=== PATIENT | male | born 1930 | race Caucasian/White ===

== ENCOUNTER 2017-01-25 08:38 | Emergency (ER) | payer BC ==
[~2017-01-25] VITALS: Ht 167.6 cm; Wt 102.8 kg
[~2017-01-25 08:38] MED LIST: AMLO-110 PO; BRVIN PO; BUDE0.5S INH; CLOP1TAB15 PO; DUTACAP PO; LEVO75TA5 PO; LOSA1TAB38 PO; METO-478 PO; PRIM250T9 PO; SIMV80TA2 PO; TRAV0.00 OPB; VNTHFA/IN
[2017-01-25 08:43] VITALS: TEMP 36.5; Ht 167.6 cm; Wt 102.8 kg
[2017-01-25] MEDS ORDERED: SPRIN/30 INH (09:12)
[2017-01-25] MEDS ORDERED: CYCLOBENZAPRINE HCL 10 MG TAB PO STA (09:12)
[2017-01-25] MEDS ORDERED: ARFO15NE NEB (09:12)
[2017-01-25] MEDS ORDERED: BUDE0.5S NEB (09:12)
[2017-01-25] MEDS ORDERED: PRVC/20 PO (09:12)
--- NOTE | 2017-01-25 09:18 | EMERGENCY ROOM VISIT NOTE ---
History Report prepared by Rudy: Dawna Pugh Under the Supervision of: Dr. Nedra Moore M.D. First contact with patient: 08:47 Chief Complaint: LEG PAIN,LEG INJURY Stated Complaint: LEFT LEG PAIN History of Present Illness The patient is a 86 year old male who presents to the Emergency Room with complaints of constant left leg pain that started 8.5 hours ago, around 0030. He describes the pain as sharp and states that the pain is from his knee distally. The pain is worse with standing. The patient states that he went to bed last night around 2230 and he felt well. He states that the pain in his leg woke him up from sleep around 0030. The patient denies doing anything strenuous yesterday. The patient's sister states that the patient has been walking more than usual recently. The patient adds that he has a history of COPD and is on a nebulizer at home. The patient denies any personal history of blood clots, but his sister states that there is a history of blood clots in their family. The patient denies any history of diabetes. The patient has a history of a stroke that affects the right side of his body. Source of History: patient Onset: 8.5 hours ago, around 0030 Position: leg (left, from knee distally) Quality: sharp Timing: constant Modifying Factors (Worsening): other (standing) Note: increased walking Review of Systems See HPI for pertinent positives & negatives. A total of 10 systems reviewed and were otherwise negative. 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 (6) PURE HYPERCHOLESTEROLEM (7) SINOATRIAL NODE DYSFUNCT (8) Stroke Family History Cancer FH: heart disease Hypertension Social History Smoking Status: Never Smoker Alcohol Use: none Drug Use: none Marital Status: Housing Status: lives with family Occupation Status: retired Current/Historical Medications Scheduled Albuterol Hfa (Ventolin Hfa), 2 PUFFS BID Arformoterol Tartrate (Brovana), 1 VIAL NEB BID Azithromycin (Azithromycin), 1 TAB PO HS Budesonide (Inhalation) (Pulmicort), 2 ML NEB BID Clopidogrel (Plavix), 75 MG PO DAILY Cyclobenzaprine Hcl (Flexeril), 5 MG PO TID Levothyroxine Sodium (Levothyroxine Sodium), 75 MCG PO DAILY Losartan Potassium (Cozaar), 100 MG PO DAILY Metoprolol Succinate (Toprol Xl), 25 MG PO HS Pravastatin Sod (Pravastatin Sodium), 20 MG PO HS Prednisone (Prednisone), 10 MG PO DIRECTED Primidone (Mysoline), 375 MG PO BID Tamsulosin HCl (Tamsulosin HCl), 0.4 MG PO HS Tiotropium [place] (Spiriva Handihaler), 1 CAP INH DAILY Travoprost (Travatan Z), 1 DROPS OPB HS Scheduled PRN Tramadol (Ultram), 1 TABS PO Q6 PRN for Pain Allergies Coded Allergies: Doxycycline (Verified Allergy, Intermediate, RASH, 01/25/17) Propranolol (Verified Allergy, Mild, BRADYCARDIA, 01/25/17) Cephalexin (Verified Allergy, Unknown, RASH, 01/25/17) Uncoded Allergies: MONOHYDRATE (Allergy, Unknown, UNKNOWN, 10/09/15) Physical Exam Vital Signs Date Time Temp Pulse Resp B/P (MAP) Pulse Ox O2 Delivery O2 Flow Rate FiO2 01/25/17 11:13 62 16 182/81 95 Room Air 01/25/17 08:43 36.5 79 17 177/88 95 Room Air Physical Exam Vital signs reviewed. General: Chronically ill-appearing elderly male, in no significant distress. HEENT: No scleral icterus, PERRLA, neck supple. Atraumatic. Cardiovascular: Regular rate and rhythm, no extra sounds. Pulmonary: Clear to auscultation bilaterally, normal work of breathing. Abdomen: Soft, nontender, nondistended, positive bowel sounds. Musculoskeletal: Atraumatic, equal strength in bilateral lower extremities, no pain with straight leg raise, equal dorsiflexion and plantarflexion, no peripheral edema. Neurologic: Patient awake alert and oriented x 3, full strength in all 4 extremities. Cranial nerves 2 through 12 grossly intact. Skin: Warm, dry, no rash Medical Decision & Procedures ER Provider Diagnostic Interpretation: Radiology results as stated below per my review and radiologist interpretation: LUMBAR SPINE 5 VIEWS COMPARISON: None. FINDINGS: There is no fracture. No subluxation. Mild facet degenerative changes at L4-L5 and L5-S1. Disc spaces are relatively preserved for age. Tiny endplate osteophytes within the lumbar spine. IMPRESSION: No fracture or subluxation within the lumbar spine. Electronically signed by: Juanpablo Rincon M.D. 01/25/2017 10:42 AM Dictated Date/Time: 01/25/2017 10:41 AM LEFT HIP UNILATERAL 2 VIEWS FINDINGS: No fracture or dislocation. Mild left hip osteoarthritis. The bones are slightly osteopenic. Soft tissues are unremarkable. IMPRESSION: No fracture or dislocation within the left hip. Electronically signed by: Juanpablo Rincon M.D. 01/25/2017 10:40 AM Dictated Date/Time: 01/25/2017 10:39 AM LEFT LOWER EXTREMITY VENOUS DOPPLER FINDINGS: There is normal compressibility, flow, and augmentation within the left lower extremity deep venous system. IMPRESSION: No DVT within the left lower extremity. Electronically signed by: Juanpablo Rincon M.D. 01/25/2017 10:30 AM Dictated Date/Time: 01/25/2017 10:30 AM Medications Administered Medications (Trade) Dose Ordered Sig/Zafar Route Start Time Stop Time Status Last Admin Dose Admin Prednisone (PredniSONE TAB) 40 mg NOW STAT PO 01/25/17 09:12 01/25/17 09:15 DC 01/25/17 09:21 40 MG Cyclobenzaprine HCl (Flexeril Tab) 5 mg NOW STAT PO 01/25/17 09:12 01/25/17 09:15 DC 01/25/17 09:21 5 MG Tramadol HCl (Ultram Tab) 50 mg NOW STAT PO 01/25/17 11:35 01/25/17 11:36 DC 01/25/17 11:42 50 MG ED Course 0901: Past medical records reviewed. The patient was evaluated in room A3. A complete history and physical examination was performed. 0912: Ordered Flexeril Tab 5 mg PO, Prednisone 40 mg PO 1130: The patient's nurse called to inform me that the patient would like something for pain. 1135: Ordered Ultram Tab 1153: Upon reevaluation, the patient appeared to have improvement of his symptoms. I discussed findings with him. He verbalized agreement of the treatment plan. He was discharged home. Medical Decision Differentials include DVT, lumbar radiculopathy, cellulitis, muscular pain, arthritis, fracture. Medication Reconciliation: I attest that I have personally reviewed the patient' s current medication list. Blood Pressure Screening: Patient was found to have an elevated blood pressure and was referred to their primary doctor for recheck and further treatment. This patient was evaluated and appeared to be in no significant distress. After physical exam was performed, patient was given 40 mg of prednisone, 5 mg of Flexeril and 50 mg of Ultram. Lumbar spine films and hip x-ray were obtained and results are as above. There is no significant fracture or malalignment. Venous Doppler was performed and is negative. Patient had some improvement of his symptoms with the above medication regimen. He was given a prescription for both Flexeril and Ultram to be used as needed. He was given a prednisone taper. The patient was advised of the findings. He was discharged to the care of her sister. He will follow-up with his physician this week for reevaluation return to the ER for worsening of symptoms or any medical concerns. Impression Primary Impression: Lumbar radicular pain Scribe Attestation The scribe's documentation has been prepared under my direction and personally reviewed by me in its entirety. I confirm that the note above accurately reflects all work, treatment, procedures, and medical decision making performed by me. Departure Information Dispostion Home / Self-Care Prescriptions Tramadol (Ultram) 50 Mg Tab 1 TABS PO Q6 Y for Pain, #20 TAB Prov: Nedra Moore M.D. 01/25/17 Cyclobenzaprine Hcl (FLEXERIL) 5 Mg Tab 5 MG PO TID for 7 Days, #21 TAB PRN Prov: Nedra Moore M.D. 01/25/17 Prednisone (Prednisone) 10 Mg Tab 10 MG PO DIRECTED, #31 TAB Prednisone 40 mg for 4 days, 30 mg for 3 days, 20 mg for 2 days, 10 mg for 2 days. Prov: Nedra Moore M.D. 01/25/17 Referrals David Dial D.O. (PCP) Forms HOME CARE DOCUMENTATION FORM, IMPORTANT VISIT INFORMATION Patient Instructions My [facility] Additional Instructions Diagnosis: Lumbar radiculopathy Prednisone 40 mg for 4 days, 30 mg for 3 days, 20 g for 2 days, 10 mg for 2 days. Flexeril 5 mg 3 times daily as needed for muscular spasm. Ultram 50 mg every 6 hours as needed for pain. Tylenol 650 mg every 6 hours as needed for pain. Follow-up with your physician this week for reevaluation. Return to the ER for worsening of symptoms or any medical concerns.
[2017-01-25] MEDS ORDERED: ZPAK PO (09:22)
[2017-01-25] MEDS ORDERED: FLM4 PO (09:22)
--- NOTE | 2017-01-25 10:31 | DIAGNOSTIC IMAGING REPORT ---
LEFT LOWER EXTREMITY VENOUS DOPPLER HISTORY: Left leg pain. COMPARISON STUDY: None. FINDINGS: There is normal compressibility, flow, and augmentation within the left lower extremity deep venous system. IMPRESSION: No DVT within the left lower extremity. Electronically signed by: Juanpablo Rincon M.D. 01/25/2017 10:30 AM Dictated Date/Time: 01/25/2017 10:30 AM
--- NOTE | 2017-01-25 10:41 | DIAGNOSTIC IMAGING REPORT ---
LEFT HIP UNILATERAL 2 VIEWS CLINICAL HISTORY: Left hip pain. COMPARISON STUDY: None. FINDINGS: No fracture or dislocation. Mild left hip osteoarthritis. The bones are slightly osteopenic. Soft tissues are unremarkable. IMPRESSION: No fracture or dislocation within the left hip. Electronically signed by: Juanpablo Rincon M.D. 01/25/2017 10:40 AM Dictated Date/Time: 01/25/2017 10:39 AM
--- NOTE | 2017-01-25 10:43 | DIAGNOSTIC IMAGING REPORT ---
LUMBAR SPINE 5 VIEWS HISTORY: Lower back pain. COMPARISON: None. FINDINGS: There is no fracture. No subluxation. Mild facet degenerative changes at L4-L5 and L5-S1. Disc spaces are relatively preserved for age. Tiny endplate osteophytes within the lumbar spine. IMPRESSION: No fracture or subluxation within the lumbar spine. Electronically signed by: Juanpablo Rincon M.D. 01/25/2017 10:42 AM Dictated Date/Time: 01/25/2017 10:41 AM
[2017-01-25 11:13] VITALS: BP 182/81; PULSE 62; O2SAT 95
[2017-01-25] MEDS ORDERED: TRAMADOL HCL 50 MG TAB PO STA (11:35)
[2017-01-25] MEDS ORDERED: PRED10TA PO (11:42)
[2017-01-25] MEDS ORDERED: CYCL5TAB PO (11:43)
[2017-01-25] MEDS ORDERED: TRAM-10 PO (11:43)
[2017-05-04] MEDS ORDERED: AMLO-110 PO (12:03)
== END 2017-01-25 11:35 | disposition home or self-care (01) ==
LOC: C.EDB 08:41 → C.EDA 11:35
DX: M54.16 Radiculopathy, lumbar region (principal); J44.9 Chronic obstructive pulmonary disease, unspecified; I69.351 Hemiplegia and hemiparesis following cerebral infarction affecting right dominant side; I10 Essential (primary) hypertension; N40.0 Benign prostatic hyperplasia without lower urinary tract symptoms; E78.00 Pure hypercholesterolemia, unspecified; Z80.9 Family history of malignant neoplasm, unspecified; Z82.49 Family history of ischemic heart disease and other diseases of the circulatory system; Z79.01 Long term (current) use of anticoagulants; Z79.899 Other long term (current) drug therapy

== ENCOUNTER 2017-03-21 01:18 | Emergency (ER) | payer BC ==
[~2017-03-21] VITALS: Ht 167.6 cm; Wt 104.8 kg
[~2017-03-21 01:18] MED LIST changes: -AMLO-110 PO; +ARFO15NE NEB; -BRVIN PO; -BUDE0.5S INH; +BUDE0.5S NEB; -DUTACAP PO; +FLM4 PO; -METO-478 PO; +METO1TAB31 PO; +PRED10TA PO; +PRIM250T30 PO; -PRIM250T9 PO; +PRVC/20 PO; -SIMV80TA2 PO; +SPRIN/30 INH; +TRAM-10 PO; +ZPAK PO
[2017-03-21 01:24] VITALS: TEMP 36.5; Ht 167.6 cm; Wt 104.8 kg
[2017-03-21] MEDS ORDERED: DEXAMETHASONE SOD INJ 10 MG/ML VIAL IM STA (01:33)
[2017-03-21] MEDS ORDERED: OXYCODONE HCL IR 5 MG TAB (IMMEDIATE RELEASE) PO STA (01:33)
[2017-03-21] MEDS ORDERED: GABAPENTIN 250 MG/5 ML 470 ML BTL PO STA ×2 (01:37→01:52)
--- NOTE | 2017-03-21 01:40 | EMERGENCY ROOM VISIT NOTE ---
History Report prepared by Rudy: Anthony Eng Under the Supervision of: Dr. Brian Rowland M.D. First contact with patient: 01:28 Chief Complaint: LEG PAIN,LEG INJURY Stated Complaint: PAIN IN LEFT LEG History of Present Illness The patient is a 86 year old male who presents to the Emergency Room with complaints of worsening sharp left leg mack starting a few months ago. The patient states that the pain is mostly from the knee down on the anterior side. The pain is not exacerbated with palpation. Source of History: patient Onset: a few months ago Position: leg (left) Quality: sharp Timing: worsening Review of Systems See HPI for pertinent positives & negatives. A total of 10 systems reviewed and were otherwise negative. 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 (6) PURE HYPERCHOLESTEROLEM (7) SINOATRIAL NODE DYSFUNCT (8) Stroke Family History Cancer FH: heart disease Hypertension Social History Smoking Status: Never Smoker Alcohol Use: none Drug Use: none Marital Status: Housing Status: lives with family Occupation Status: retired Current/Historical Medications Scheduled Albuterol Hfa (Ventolin Hfa), 2 PUFFS BID Arformoterol Tartrate (Brovana), 1 VIAL NEB BID Budesonide (Inhalation) (Pulmicort), 2 ML NEB BID Clopidogrel (Plavix), 75 MG PO DAILY Docusate Sodium (Colace), 1 CAP PO BID Gabapentin (Neurontin), 1 CAP PO TID Levothyroxine Sodium (Levothyroxine Sodium), 75 MCG PO DAILY Losartan Potassium (Cozaar), 100 MG PO DAILY Metoprolol Succinate (Toprol Xl), 25 MG PO HS Pravastatin Sod (Pravastatin Sodium), 20 MG PO HS Primidone (Mysoline), 375 MG PO BID Sennosides (Senokot), 8.6 MG PO HS Tamsulosin HCl (Tamsulosin HCl), 0.4 MG PO HS Tiotropium [place] (Spiriva Handihaler), 1 CAP INH DAILY Travoprost (Travatan Z), 1 DROPS OPB HS Scheduled PRN Oxycodone Immediate Rel Tab (Roxicodone Ir), 1-2 TAB PO Q4H PRN for Severe Pain Allergies Coded Allergies: Doxycycline (Verified Allergy, Intermediate, RASH, 03/21/17) Propranolol (Verified Allergy, Mild, BRADYCARDIA, 03/21/17) Cephalexin (Verified Allergy, Unknown, RASH, 03/21/17) Uncoded Allergies: MONOHYDRATE (Allergy, Unknown, UNKNOWN, 10/09/15) Physical Exam Vital Signs Date Time Temp Pulse Resp B/P (MAP) Pulse Ox O2 Delivery O2 Flow Rate FiO2 03/21/17 03:50 59 18 159/99 95 03/21/17 02:54 61 18 173/116 Room Air 03/21/17 01:24 36.5 67 20 198/94 94 Room Air Physical Exam GENERAL: Patient is a healthy-appearing well-nourished male HEAD: Normocephalic atraumatic EYES: Ocular movements intact pupils equal and react to light OROPHARYNX mucous membranes are moist no exudates present no erythema or edema present NECK: Supple no nuchal rigidity CHEST: Good equal expansion LUNGS: Clear and equal to auscultation CARDIAC: Normal S1 and S2 ABDOMEN: Soft nontender no guarding BACK: No CVA tenderness EXTREMITIES: Able to walk on the left leg. Slight abrasions. No left leg tenderness to palpation of the tibia. Good range of motion in the knee, ankle, and hip. No pain upon palpation normal muscle strength in all groups no clubbing cyanosis or edema NEURO: Patient is following commands and answering questions appropriately. Alert and oriented x3 Cranial Nerves 2-12 grossly intact Medical Decision & Procedures ER Provider Diagnostic Interpretation: X-ray results as stated below per interpretation by me: Two view of the left tibia: No evidence of fracture, dislocation, or subluxation. CT results as stated below per my review and radiologist interpretation: US VENOUS LEFT LOWER EXTREMITY: No deep venous thrombosis identified in the left lower extremity. Medications Administered Medications (Trade) Dose Ordered Sig/Zafar Route Start Time Stop Time Status Last Admin Dose Admin Dexamethasone Sodium Phosphate (Decadron Inj) 10 mg NOW STAT IM 03/21/17 01:33 03/21/17 01:36 DC 03/21/17 01:48 10 MG Oxycodone HCl (Roxicodone Immediate Rel Tab) 5 mg NOW STAT PO 03/21/17 01:33 03/21/17 01:36 DC 03/21/17 01:47 5 MG Gabapentin (Neurontin) 300 mg NOW STAT PO 03/21/17 01:52 03/21/17 01:53 DC 03/21/17 02:08 300 MG ED Course 0130: Past medical records reviewed. The patient was evaluated in room A2. A complete history and physical examination was performed. 0133: Oxycodone HCl 5mg PO, Decadron Inj 10mg IM 0152: Neurontin 300mg PO 0310: I spoke with the patient's daughter, and she states that the patient was recommended physical therapy in January, but he has not followed up with it since. 0320: Upon reexamination the patient is feeling well. I discussed results and treatment plan with the patient. He verbalizes agreement and understanding. The patient is ready for discharge. 0345: Roxicodone Immediate Rel 5mg 1 Home pack PO Medical Decision Differential diagnosis: Etiologies such as fracture, dislocation, neurovascular compromise, compartment syndrome, soft tissue injury, as well as others were entertained. This is an 86-year-old male who presents emergency department complaining of left leg pain. The leg pain has been ongoing since at least January. The patient has no weakness in the leg. He did not follow-up with physical therapy back in October. I lengthy discussion about the patient with his daughter. She asked for referral to an orthopedic surgeon which was done. In the meanwhile the patient was started on Neurontin as well as Doxy in the emergency department. Repeat examination revealed improvement patient's symptoms. I do feel that the patient is well enough to be discharged home for follow-up with orthopedics. Both patient and daughter were in agreement with the treatment plan. Medication Reconcilliation Current Medication List: was personally reviewed by me Blood Pressure Screening Patient's blood pressure: Elevated blood pressure Blood pressure disposition: Referred to PCP Impression Primary Impression: Leg pain, left Scribe Attestation The scribe's documentation has been prepared under my direction and personally reviewed by me in its entirety. I confirm that the note above accurately reflects all work, treatment, procedures, and medical decision making performed by me. Departure Information Dispostion Home / Self-Care Prescriptions Docusate Sodium (COLACE) 100 Mg Cap 1 CAP PO BID for 10 Days, #20 CAP Prov: Brian Rowland MD 03/21/17 Sennosides (SENOKOT) 8.6 Mg Tab 8.6 MG PO HS for 10 Days, #10 TAB Prov: Brian Rowland MD 03/21/17 Gabapentin (NEURONTIN) 300 Mg Cap 1 CAP PO TID for 10 Days, #30 CAP Prov: Brian Rowland MD 03/21/17 Oxycodone Immediate Rel Tab (ROXICODONE IR) 5 Mg Tab 1-2 TAB PO Q4H Y for Severe Pain, #24 TAB Prov: Brian Rowland MD 03/21/17 Referrals David Dial D.O. (PCP) Forms HOME CARE DOCUMENTATION FORM, IMPORTANT VISIT INFORMATION Patient Instructions Leg Low Back Pain Poss Causes, My [facility] [place] [employer] Additional Instructions Call your daughter before going home Follow up with DR Bland's office Take 1000 mg TYlenol every 6 hours Take Neurontin as directed Take oxy for breakthrough pain You were found to have an elevated blood pressure today (>120 sytolic or >90 diastolic). Per medicare guidelines, you need to follow up with this blood pressure screening with your Primary Care Physician (PCP). For a new PCP call [phone]. You received narcotic or benzodiazepene medication while in the emergency room today. Do not drive, operate heavy machinery, or drink alcohol under the influence of this medication. You have been examined and treated today on an emergency basis only. This is not a substitute for, or an effort to provide, complete comprehensive medical care. It is impossible to recognize and treat all injuries or illnesses in a single emergency department visit. It is therefore important that you follow up closely with Dr Dial. Call as soon as possible for an appointment. Thank you for your time and consideration. I look forward to speaking with you again soon. Please don't hesitate to call us if you have any questions.
[2017-03-21] MEDS ORDERED: NRN/300 PO (03:31)
[2017-03-21] MEDS ORDERED: OXYC1TAB3 PO (03:31)
[2017-03-21] MEDS ORDERED: SENN1TAB77 PO (03:36)
[2017-03-21] MEDS ORDERED: DOCU-94 PO (03:36)
[2017-03-21] MEDS ORDERED: OXYCODONE IR HOME PACK PO ONE (03:45)
[2017-03-21 03:50] VITALS: BP 159/99; PULSE 59; O2SAT 95
--- NOTE | 2017-03-21 07:04 | DIAGNOSTIC IMAGING REPORT ---
LEFT LOWER EXTREMITY VENOUS DOPPLER HISTORY: Left leg pain. COMPARISON STUDY: None. FINDINGS: There is normal compressibility, flow, and augmentation within the left lower extremity deep venous system. IMPRESSION: No DVT within the left lower extremity. Electronically signed by: Juanpablo Rincon M.D. 03/21/2017 7:03 AM Dictated Date/Time: 03/21/2017 7:03 AM
--- NOTE | 2017-03-21 07:53 | DIAGNOSTIC IMAGING REPORT ---
LEFT TIBIA/FIBULA 2 VIEWS ROUTINE CLINICAL HISTORY: Left lower leg pain. COMPARISON STUDY: None. FINDINGS: No fracture or dislocation. Soft tissues unremarkable. No radiopaque foreign bodies. IMPRESSION: No fractures within the left lower leg. Electronically signed by: Juanpablo Rincon M.D. 03/21/2017 7:52 AM Dictated Date/Time: 03/21/2017 7:50 AM
[2017-05-04] MEDS ORDERED: AMLO-110 PO (12:03)
== END 2017-03-21 03:50 | disposition home or self-care (01) ==
LOC: C.EDB 01:19 → C.EDA 03:50
DX: M79.605 Pain in left leg (principal); J44.9 Chronic obstructive pulmonary disease, unspecified; I11.0 Hypertensive heart disease with heart failure; N40.0 Benign prostatic hyperplasia without lower urinary tract symptoms; E78.00 Pure hypercholesterolemia, unspecified; Z86.73 Personal history of transient ischemic attack (TIA), and cerebral infarction without residual deficits; Z80.9 Family history of malignant neoplasm, unspecified; Z82.49 Family history of ischemic heart disease and other diseases of the circulatory system; Z79.01 Long term (current) use of anticoagulants; Z79.899 Other long term (current) drug therapy

== ENCOUNTER → 2017-04-16 | Outpatient (CLI) | payer BC ==
[~2017-04-16] MED LIST changes: +AMLO-110 PO; +NRN/300 PO; +OXYC1TAB3 PO; -PRED10TA PO; -TRAM-10 PO; -ZPAK PO
--- NOTE | 2017-04-16 10:32 | DIAGNOSTIC IMAGING REPORT ---
LUMBAR SPINE W/O CONTRAST HISTORY: Pain LOW BACK PAIN TECHNIQUE: Multiplanar multisequence MRI of the lumbar spine was performed without the use of contrast. COMPARISON: None. FINDINGS: For the purpose of the report the L5-S1 disc space will be located on axial image 2426. Mild degenerative disc change throughout. Mild disc desiccation. Normal signal characteristics of the vertebral bodies. L1-L2: Minimal broad-based disc bulge. No significant impact upon the thecal sac. L2-L3: Minimal disc bulge. No significant impact upon the neural elements. L3-L4: Mild multifactorial narrowing of the spinal canal. Mild narrowing right neuroforamina. L4-L5: Mild multifactorial narrowing of spinal canal. Moderate narrowing of the neuroforamina bilaterally secondary to hypertrophic changes of posterior facets. Findings accentuated by mild broad-based bulging disc. L5-S1: No significant central canal or neural foraminal narrowing. IMPRESSION: 1. Moderate degenerative disc change throughout. 2. Mild multifactorial narrowing of spinal canal at L4-L5 and L3-L4 3. Moderate narrowing of the neuroforamina bilaterally at L4-L5 and on the right at L3-L4. The above report was generated using voice recognition software. It may contain grammatical, syntax or spelling errors. Electronically signed by: John Santillan M.D. 04/16/2017 10:31 AM Dictated Date/Time: 04/16/2017 10:27 AM
== END | disposition home or self-care (01) ==
LOC: C.MRI 09:37
PROVIDERS: ATTEND Family Medicine Sports Medicine
DX: M54.10 Radiculopathy, site unspecified (principal); M54.5 Low back pain

== ENCOUNTER → 2017-05-21 | Outpatient (CLI) | payer BC ==
[~2017-05-21] MED LIST changes: -NRN/300 PO; -OXYC1TAB3 PO; -SPRIN/30 INH
--- NOTE | 2017-05-21 17:20 | DIAGNOSTIC IMAGING REPORT ---
L FOOT MIN 3 VIEWS ROUTINE CLINICAL HISTORY: 86 years-old Male presenting with L ANKLE PAIN. TECHNIQUE: Frontal, oblique, and lateral views of the left foot were obtained. COMPARISON: None. FINDINGS: No acute fracture or malalignment. Ossific fragment at the inferior pole of the medial malleolus suggest prior avulsion injury. Degenerative change noted at the first metatarsophalangeal articulation and more milder degenerative change at the interphalangeal joint of the first toe. Prominent enthesophyte at the origin of the plantar fascia. Atherosclerosis. No radiographic soft tissue abnormality. IMPRESSION: 1. 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 No acute osseous injury. 2. Prominent enthesophyte at the origin of the plantar fascia. Correlate clinically for plantar fasciitis. 3. Degenerative changes most significantly at the first MTP joint. Electronically signed by: Seng Flores M.D. 05/21/2017 5:19 PM Dictated Date/Time: 05/21/2017 5:17 PM
--- NOTE | 2017-05-21 17:29 | DIAGNOSTIC IMAGING REPORT ---
L ANKLE MIN 3 VIEWS ROUTINE CLINICAL HISTORY: 86 years-old Male presenting with L ANKLE PAIN. TECHNIQUE: Frontal, mortise, and lateral views of the left ankle were obtained. COMPARISON: None. FINDINGS: Ankle mortise intact. Ossification at the inferior pole of the medial malleolus suggest prior avulsion injury. Mild soft tissue swelling over both the medial and lateral malleoli. No acute fracture or malalignment. Prominent enthesophyte at the origin of the plantar fascia. Tiny enthesophyte at the insertion of the Achilles tendon. Atherosclerosis. IMPRESSION: 1. No acute osseous injury of the left ankle. 2. 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 Electronically signed by: Seng Flores M.D. 05/21/2017 5:27 PM Dictated Date/Time: 05/21/2017 5:26 PM
== END | disposition home or self-care (01) ==
LOC: C.RAD1850 16:43
PROVIDERS: ATTEND Family Medicine
DX: S82.002A Unspecified fracture of left patella, initial encounter for closed fracture (principal); X58.XXXA Exposure to other specified factors, initial encounter; M72.2 Plantar fascial fibromatosis; M19.072 Primary osteoarthritis, left ankle and foot

== ENCOUNTER → 2017-05-21 | Day surgery (SDC) | payer BC ==
[2017-05-04 12:03] VITALS: Ht 167.6 cm; Wt 102.3 kg
[~2017-05-21] VITALS: Ht 167.6 cm; Wt 102.3 kg
[~2017-05-21] MED LIST changes: +IOPAMIDOL INJ 61% 15 ML VIAL ONE; +LIDOCAINE HCL 1% MPF 5 ML VIAL ONE; +SODIUM CHLORIDE 0.9% INJ 10 ML VIAL ONE
--- NOTE | 2017-05-21 15:13 | History & Physical Bridge - [place] ---
H&P Re-Evaluation Bridge Note: I have examined the patient, reviewed the History & Physical and in the interval since the performance of the History & Physical I have noted the following changes of clinical significance: No changes noted
[2017-05-21 15:32] VITALS: TEMP 36.6
--- NOTE | 2017-05-21 15:37 | Discharge Instructions ---
Discharge Instructions Date of Service May 21, 2017. Visit Reason for Visit: Low Back Pain Discharge Discharge Diagnosis / Problem: left leg pain Discharge Goals Goal(s): Decrease discomfort, Improve function Medications Stopped Medications Name(s): plavix stopped. last dose on thursday05/15/17 Activity Recommendations Activity Limitations: resume your previous activity Anesthesia . Post Anesthesia Instructions: If you have had General Anesthesia or IV Sedation: * Do not drive today. * Resume driving when surgeon permits. * Do not make important decisions or sign legal documents today. * Call surgeon for: 1. Temperature elevations greater than 101 degrees F. 2. Uncontrollable pain. 3. Excessive bleeding. 4. Persistent nausea and vomiting. 5. Medication intolerance (nausea, vomiting or rash). * For nausea and vomiting use only clear liquids such as: tea, soda, bouillon until nausea subsides, then gradually increase diet as tolerated. * If you have any concerns or questions, call your surgeon's office. If physician is unavailable and it is an emergency, call 911 or go to the nearest emergency room. . Diet Recommendations Recommended Home Diet: resume previous diet Procedures Procedures Performed: LUMBAR EPIDURAL STEROID INJECTION Pending Studies Studies pending at discharge: no Medical Emergencies . Who to Call and When: Medical Emergencies: If at any time you feel your situation is an emergency, please call 911 immediately. . Non-Emergent Contact Non-Emergency issues call your: Specialist . . "Provider Documentation" section prepared by Toni Morrell. .
[2017-05-21 15:43] VITALS: BP 183/98; PULSE 62; O2SAT 94
--- NOTE | 2017-05-21 18:03 | OPERATIVE REPORT ---
DATE OF OPERATION: 05/21/2017 PREOPERATIVE DIAGNOSIS: Left L4 radiculopathy secondary to foraminal stenosis. POSTOPERATIVE DIAGNOSIS: Same. PROCEDURE: Left paramedian L4-L5 interlaminar epidural steroid injection under fluoroscopic guidance. INDICATIONS: The patient is an 86-year-old white male who presents with radicular symptoms that are not responsive to conservative measures, and has gotten functionally to the point where his leg will give out if he is standing or walking for distances. He presents today for a lumbar epidural steroid injection to improve his L4 radiculopathy. PHYSICAL EXAMINATION: GENERAL: Pleasant male, seated comfortably, in no apparent distress. MUSCULOSKELETAL: Examination of lumbar paraspinal muscles were palpated and noted to be nontender. He had intact sensation distally and had 5-/5 strength with knee extension in the left leg. No sensory loss. CONSENT: Verbal and written consent was obtained from patient. Risks and benefits were reviewed. Risks include but are not limited to epidural abscess, epidural hematoma, allergic reaction, dural puncture. The patient wishes to proceed. PROCEDURE: The patient was taken back to the special procedures room of [facility] where he was maintained in a prone position. Backside was cleansed with Betadine x3 and a dry sterile dressing was applied. Fluoroscope was used to identify the L4-L5 interlaminar space. Overlying skin on the left side was anesthetized with 4 mL of lidocaine 1% with a 25 gauge 1.5-inch needle. A 22 gauge 3.5-inch Tuohy needle was then directed down towards the intralaminar space. It was advanced under lateral fluoroscopic guidance, loss of resistance was noted at a depth of 9 cm with the hub of the needle on the skin. He then underwent injection of 1 mL of Isovue 300 contrast which confirmed epidural spread. He then underwent injection after negative aspiration of 40 mg of Depo-Medrol and 4 mL of preservative free sodium chloride. Injection was well tolerated. DISPOSITION: 1. The patient is taken out into the discharge recovery area where he will be discharged home once discharge criteria have been met. 2. Follow up in the [facility] office in 2-4 weeks. I attest to the content of the Intraoperative Record and any orders documented therein. Any exceptions are noted below. CHERISE
== END | disposition home or self-care (01) ==
LOC: X.SURG 13:58
PROVIDERS: ATTEND Physical Medicine & Rehabilitation
DX: M54.16 Radiculopathy, lumbar region (principal); M48.061 Spinal stenosis, lumbar region without neurogenic claudication

== ENCOUNTER → 2017-07-15 | Outpatient (CLI) | payer BC ==
[~2017-07-15] MED LIST changes: -IOPAMIDOL INJ 61% 15 ML VIAL ONE; -LIDOCAINE HCL 1% MPF 5 ML VIAL ONE; +METO-478 PO; -METO1TAB31 PO; -PRIM250T30 PO; +PRIM250T9 PO; -SODIUM CHLORIDE 0.9% INJ 10 ML VIAL ONE
--- NOTE | 2017-07-15 15:45 | DIAGNOSTIC IMAGING REPORT ---
CHEST 2 VIEWS ROUTINE CLINICAL HISTORY: BILATERAL EDEMA OF LOWER EXTREMITY COMPARISON STUDY: 07/22/2016 FINDINGS: The heart is mildly enlarged. There is no failure. There is no focal pulmonary consolidation. There are no pleural effusions. Soft tissue paralleling the right lateral chest wall, likely is either extraneous to the patient or a secondary to subpleural fat. This remains unchanged from September 2015[. There are stable postinflammatory nodular densities at the left cardiac phrenic angle. IMPRESSION: Mild cardiomegaly. No active disease in the chest. Electronically signed by: Reno Rinaldi M.D. 07/15/2017 3:44 PM Dictated Date/Time: 07/15/2017 3:42 PM
[2017-07-15 16:42] LABS: BASO % 0.3 %; BASO ABS # 0.03 K/uL (0-0.2); COMPLETE YES; EOS % 3.4 %; HEMATOCRIT 38.2 % (42-52); IG% 0.2 %; LYMPH % 23.8 %; LYMPH ABS # 2.04 K/uL (1.2-3.4); MEAN PLATELET VOLUME 10.2 fL (7.4-10.4); MONO % 6.4 %; NEUT % 65.9 %; PLATELET COUNT 314 K/uL (130-400); RED BLOOD COUNT 3.94 M/uL (4.7-6.1); WHITE BLOOD COUNT 8.58 K/uL (4.8-10.8)
[2017-07-15 16:52] LABS: ALT/SGPT 18 U/L (12-78); AST/SGOT 13 U/L (15-37); BLOOD UREA NITROGEN 9 mg/dl (7-18); BUN/CREATININE RATIO 8.9 (10-20); CALCIUM 8.7 mg/dl (8.5-10.1); CARBON DIOXIDE 29 mmol/L (21-32); CHLORIDE 101 mmol/L (98-107); CREATININE 0.99 mg/dl (0.60-1.40); GLUCOSE 106 mg/dl (70-99); POTASSIUM 4.4 mmol/L (3.5-5.1); SODIUM 131 mmol/L (136-145)
[2017-07-15 16:57] LABS: ALB/GLOB RATIO 0.7 (0.9-2); ALKALINE PHOSPHATASE 171 U/L (45-117)
== END | disposition home or self-care (01) ==
LOC: C.RAD1850 14:48
PROVIDERS: ATTEND Family Medicine
DX: R60.0 Localized edema (principal)

== ENCOUNTER → 2017-07-16 | Outpatient (CLI) | payer BC ==
--- NOTE | 2017-07-16 14:05 | DIAGNOSTIC IMAGING REPORT ---
ULTRASOUND ABDOMEN COMPLETE CLINICAL HISTORY: Abdominal distention. Lower extremity edema. COMPARISON STUDY: Abdominal ultrasound dated 02/05/2010. TECHNIQUE: Real-time, grayscale, and color flow sonography of the abdomen was performed. Images are reviewed in the transverse and longitudinal planes. FINDINGS: Liver: The liver is mildly enlarged and demonstrates heterogeneously increased echotexture suggesting mild steatosis. There is no intrahepatic biliary ductal dilatation. The main portal vein is patent. Gallbladder: The gallbladder is normal in appearance. No gallstones are identified. There is no gallbladder wall thickening or pericholecystic fluid. A sonographic Valencia's sign is reportedly absent. The common bile duct measures up to 0.4 cm in diameter. Pancreas: Not well visualized due to overlying bowel gas. Spleen: The spleen is top normal in size and homogeneous in echotexture echotexture, measuring 12.9 cm in length. Kidneys: The kidneys demonstrate cortical atrophy. There is no hydronephrosis. The right kidney measures 10.3 cm in length and the left kidney measures 10.3 cm in length. No shadowing calculi are identified. There are bilateral renal cysts. The largest is on the left and measures 3.4 cm. Abdominal vasculature: Visualized portions of the abdominal aorta are normal in caliber. Ascites: None. IMPRESSION: 1. No acute sonographic abnormality is identified. No gallstones are seen. 2. Hepatomegaly and mild hepatic steatosis. 3. The kidneys demonstrate cortical atrophy and are without hydronephrosis. 4. The pancreas was not well visualized due to overlying bowel gas. Electronically signed by: Seb Pittman M.D. 07/16/2017 2:04 PM Dictated Date/Time: 07/16/2017 2:02 PM
== END | disposition home or self-care (01) ==
LOC: C.ULTR 12:43
PROVIDERS: ATTEND Family Medicine
DX: R14.0 Abdominal distension (gaseous) (principal); R16.0 Hepatomegaly, not elsewhere classified; K76.0 Fatty (change of) liver, not elsewhere classified

== ENCOUNTER 2017-07-17 17:52 | Emergency (ER) | payer BC ==
[~2017-07-17] VITALS: Ht 167.6 cm; Wt 105.5 kg
[2017-07-17 18:13] VITALS: TEMP 36.3; Ht 167.6 cm; Wt 105.5 kg
--- NOTE | 2017-07-17 18:46 | EMERGENCY ROOM VISIT NOTE ---
History Report prepared by Eronibe: Yany Alfonso Under the Supervision of: Dr. Daniel Wagoner D.O. First contact with patient: 18:35 Chief Complaint: REFERRED BY DOCTOR Stated Complaint: D DIMER AND ULTR FOR BLOOD CLOT History of Present Illness The patient is an 87 year old male who presents to the Emergency Room with complaints of persistent pain in his bilateral legs for the past 2 weeks. He states his legs are "swollen and itchy". He has been seeing Dr. Reed at [facility], and this evening saw Dr. Snyder, who referred him here to the ED for a possible DTV's. He states the office was unable to perform an ultrasound after hours and Dr. Snyder "did not feel comfortable waiting until tomorrow". His daughter reports the patient also had an ultrasound on his abdomen, and an EKG recently, which both came back normal. He complains of some increased shortness of breath, but states he has a history of COPD and he is short of breath at his baseline. The patient denies any recent fevers, nausea or vomiting. 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 A total of 10 systems reviewed and were otherwise negative. 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 (6) PURE HYPERCHOLESTEROLEM (7) SINOATRIAL NODE DYSFUNCT (8) Stroke Family History Cancer FH: heart disease Hypertension Social History Smoking Status: Former Smoker Alcohol Use: none Drug Use: none Marital Status: Housing Status: lives with family Occupation Status: retired Current/Historical Medications Scheduled Albuterol Hfa (Ventolin Hfa), 2 PUFFS BID Amlodipine (Norvasc), 5 MG PO QAM Arformoterol Tartrate (Brovana), 1 VIAL NEB BID Budesonide (Inhalation) (Pulmicort), 2 ML NEB BID Clopidogrel (Plavix), 75 MG PO HOLD PRIOR TO Levothyroxine Sodium (Levothyroxine Sodium), 75 MCG PO QAM Losartan Potassium (Cozaar), 100 MG PO QAM Metoprolol Succinate (Toprol Xl), 25 MG PO HS Pravastatin Sod (Pravastatin Sodium), 20 MG PO HS Primidone (Mysoline), 250 MG PO BID Tamsulosin HCl (Tamsulosin HCl), 0.4 MG PO HS Travoprost (Travatan Z), 1 DROPS OPB HS Allergies Coded Allergies: Doxycycline (Verified Allergy, Intermediate, RASH, 05/21/17) Propranolol (Verified Allergy, Mild, BRADYCARDIA, 05/21/17) Cephalexin (Verified Allergy, Unknown, RASH, 05/21/17) Uncoded Allergies: MONOHYDRATE (Allergy, Unknown, UNKNOWN, 10/09/15) Physical Exam Vital Signs Date Time Temp Pulse Resp B/P (MAP) Pulse Ox O2 Delivery O2 Flow Rate FiO2 07/17/17 20:30 66 22 184/93 94 Room Air 07/17/17 19:31 61 07/17/17 19:08 61 20 196/92 93 Room Air 07/17/17 19:07 94 Room Air 07/17/17 18:13 36.3 58 16 185/79 95 Room Air Physical Exam GENERAL: Patient is awake, alert, in no acute distress, patient is resting comfortably and showing no signs of anxiety EYES: The conjunctivae are clear. The pupils are round and reactive. EARS, NOSE, MOUTH AND THROAT: The nose is without any evidence of any deformity. Mucous membranes are moist tongue is midline NECK: The neck is nontender and supple. RESPIRATORY: Lung sounds diminished throughout with faint rails at both bases, no tachypnea or conversational dyspnea appreciated. CARDIOVASCULAR: Regular rate and rhythm noted there no murmurs rubs or gallops normal S1 normal S2 GASTROINTESTINAL: The abdomen is moderately distended but soft. No tenderness, guarding or rigidity appreciated. PELVIS: The Pelvis is stable. No tenderness to palpation is noted. BACK: No midline tenderness or or step-off noted range of motion in flexion extension as well as rotation no signs of muscle spasm noted MUSCULOSKELETAL/EXTREMITIES: There is no evidence of gross deformity full range of motion is noted in the hips and shoulders SKIN: Pedal edema bilaterally. No erythema appreciated. Excoriations noted over both lower extremities. There is no obvious evidence of any rash. There are no petechiae, pallor or cyanosis noted. NEUROLOGIC: Patient is awake alert and oriented x3 strength is symmetric patellar reflexes are 2+ bilaterally Medical Decision & Procedures ER Provider Diagnostic Interpretation: Radiology results as stated below per my review and radiologist interpretation: BILATERAL LOWER EXTREMITY VENOUS DOPPLER HISTORY: Acute bilateral lower extremity swelling sent by PCP for possible DVT COMPARISON STUDY: None. FINDINGS: There is normal compressibility, flow, and augmentation within the bilateral lower extremity deep venous systems. IMPRESSION: No sonographic evidence of deep venous thrombosis within the right or left lower extremity. Electronically signed by: Brant Miller M.D. 07/17/2017 8:31 PM Laboratory Results 07/17/17 19:35 Red Blood Count 4.16, Mean Corpuscular Volume 96.9, Mean Corpuscular Hemoglobin 34.4, Mean Corpuscular Hemoglobin Concent 35.5, Mean Platelet Volume 10.0, Neutrophils (%) (Auto) 59.4, Lymphocytes (%) (Auto) 29.6, Monocytes (%) (Auto) 7.1, Eosinophils (%) (Auto) 3.4, Basophils (%) (Auto) 0.4, Neutrophils # (Auto) 4.49, Lymphocytes # (Auto) 2.24, Monocytes # (Auto) 0.54, Eosinophils # (Auto) 0.26, Basophils # (Auto) 0.03 07/17/17 19:35 Test 07/17/17 19:35 White Blood Count 7.57 K/uL (4.8-10.8) Red Blood Count 4.16 M/uL (4.7-6.1) Hemoglobin 14.3 g/dL (14.0-18.0) Hematocrit 40.3 % (42-52) Mean Corpuscular Volume 96.9 fL (80-100) Mean Corpuscular Hemoglobin 34.4 pg (25-34) Mean Corpuscular Hemoglobin Concent 35.5 g/dl (32-36) Platelet Count 301 K/uL (130-400) Mean Platelet Volume 10.0 fL (7.4-10.4) Neutrophils (%) (Auto) 59.4 % Lymphocytes (%) (Auto) 29.6 % Monocytes (%) (Auto) 7.1 % Eosinophils (%) (Auto) 3.4 % Basophils (%) (Auto) 0.4 % Neutrophils # (Auto) 4.49 K/uL (1.4-6.5) Lymphocytes # (Auto) 2.24 K/uL (1.2-3.4) Monocytes # (Auto) 0.54 K/uL (0.11-0.59) Eosinophils # (Auto) 0.26 K/uL (0-0.5) Basophils # (Auto) 0.03 K/uL (0-0.2) RDW Standard Deviation 47.8 fL (36.4-46.3) RDW Coefficient of Variation 13.5 % (11.5-14.5) Immature Granulocyte % (Auto) 0.1 % Immature Granulocyte # (Auto) 0.01 K/uL (0.00-0.02) Prothrombin Time 10.7 SECONDS (9.0-12.0) Prothromb Time International Ratio 1.0 (0.9-1.1) Activated Partial Thromboplast Time 29.5 SECONDS (21.0-31.0) Partial Thromboplastin Ratio 1.1 Anion Gap 3.0 mmol/L (3-11) Est Creatinine Clear Calc Drug Dose 58.0 ml/min Estimated GFR () 75.0 Estimated GFR (Non- 64.7 BUN/Creatinine Ratio 10.8 (10-20) Calcium Level 8.5 mg/dl (8.5-10.1) Total Bilirubin 0.2 mg/dl (0.2-1) Aspartate Amino Transf (AST/SGOT) 16 U/L (15-37) Alanine Aminotransferase (ALT/SGPT) 18 U/L (12-78) Alkaline Phosphatase 176 U/L (45-117) Troponin I < 0.015 ng/ml (0-0.045) Pro-B-Type Natriuretic Peptide 77 pg/ml (0-1800) Total Protein 8.7 gm/dl (6.4-8.2) Albumin 3.5 gm/dl (3.4-5.0) Globulin 5.2 gm/dl (2.5-4.0) Albumin/Globulin Ratio 0.7 (0.9-2) Laboratory results per my review. ECG Indication: other (LE edema) Rate (beats per minute): 58 Rhythm: sinus bradycardia Findings: no ectopy, other (no acute ST segments) Change: no significant change (No change from 07/22/16) ED Course 183: The patient was evaluated in room C1. A complete history and physical examination were performed. 2044: I reevaluated the patient. He is feeling well and resting comfortably. I discussed his results and discharge instructions and he verbalized complete understanding and agreement. Medical Decision Prior records reviewed and summarized above. Triage Nursing notes reviewed. Additional history obtained from the family. The patient's history was concerning for swelling and pain in the leg. Differential diagnosis: Etiologies such as DVT, musculoskeletal, infection, joint effusion, trauma, lymphedema, idiopathic, CHF, as well as others were entertained. The patient is an 87-year-old male who presented to the emergency department for lower extremity edema at the request of his primary care physician. The patient has had ongoing lower extremity edema but started noticing pain in his legs with the edema. He was seen by his primary care physician and sent to the emergency department for possible DVT. I discussed the patient's laboratory and radiographic studies with him. Ultrasound did not reveal signs of DVT. He was encouraged to continue all medications as prescribed and follow-up with his family doctor for further evaluation and for possible echocardiogram and further testing to determine the cause of the patient's lower extremity edema. He was also encouraged return the emergency Department immediately if symptoms change worsen or the need arises. Medication Reconcilliation Current Medication List: was personally reviewed by me Blood Pressure Screening Patient's blood pressure: Elevated blood pressure Blood pressure disposition: Referred to PCP Impression Primary Impression: Bilateral lower extremity edema Additional Impression: Stasis dermatitis Scribe Attestation The scribe's documentation has been prepared under my direction and personally reviewed by me in its entirety. I confirm that the note above accurately reflects all work, treatment, procedures, and medical decision making performed by me. Departure Information Dispostion Home / Self-Care Referrals David Dial D.O. (PCP) Patient Instructions ED Leg Swelling Bilateral, My [facility] Additional Instructions Call your family to schedule a follow-up appointment. Continue all medications as prescribed. Keep her legs elevated as much as possible. Discussed the possibility with your family doctor that you may require other studies such as an echocardiogram to further evaluate your heart function to determine if this is the cause of the edema. Problem Qualifiers Additional Impression: Stasis dermatitis Laterality: bilateral Qualified Codes: I87.2 - Venous insufficiency (chronic ) (peripheral)
[2017-07-17 19:07] VITALS: O2SAT 94
[2017-07-17 19:58] LABS: BASO % 0.4 %; BASO ABS # 0.03 K/uL (0-0.2); COMPLETE YES; EOS % 3.4 %; HEMATOCRIT 40.3 % (42-52); IG% 0.1 %; LYMPH % 29.6 %; LYMPH ABS # 2.24 K/uL (1.2-3.4); MEAN CELL VOLUME 96.9 fL (80-100); MEAN CORPUSCULAR HEMOGLOBIN 34.4 pg (25-34); MEAN CORPUSCULAR HGB CONC 35.5 g/dl (32-36); MONO % 7.1 %; NEUT % 59.4 %; PLATELET COUNT 301 K/uL (130-400); RED BLOOD COUNT 4.16 M/uL (4.7-6.1); WHITE BLOOD COUNT 7.57 K/uL (4.8-10.8)
[2017-07-17 20:23] LABS: ALT/SGPT 18 U/L (12-78); AST/SGOT 16 U/L (15-37); BLOOD UREA NITROGEN 11 mg/dl (7-18); BUN/CREATININE RATIO 10.8 (10-20); CALCIUM 8.5 mg/dl (8.5-10.1); CARBON DIOXIDE 29 mmol/L (21-32); CHLORIDE 101 mmol/L (98-107); CREATININE 1.04 mg/dl (0.60-1.40); GLUCOSE 111 mg/dl (70-99); POTASSIUM 4.1 mmol/L (3.5-5.1); SODIUM 133 mmol/L (136-145)
[2017-07-17 20:28] LABS: ALB/GLOB RATIO 0.7 (0.9-2); ALKALINE PHOSPHATASE 176 U/L (45-117); PARTIAL THROMBOPLASTIN RATIO 1.1; PROTHROMBIN TIME (PATIENT) 10.7 SECONDS (9.0-12.0)
[2017-07-17 20:30] VITALS: BP 184/93; PULSE 66; O2SAT 94
--- NOTE | 2017-07-17 20:33 | DIAGNOSTIC IMAGING REPORT ---
BILATERAL LOWER EXTREMITY VENOUS DOPPLER HISTORY: Acute bilateral lower extremity swelling sent by PCP for possible DVT COMPARISON STUDY: None. FINDINGS: There is normal compressibility, flow, and augmentation within the bilateral lower extremity deep venous systems. IMPRESSION: No sonographic evidence of deep venous thrombosis within the right or left lower extremity. Electronically signed by: Brant Miller M.D. 07/17/2017 8:31 PM Dictated Date/Time: 07/17/2017 8:31 PM
== END 2017-07-17 21:00 | disposition home or self-care (01) ==
LOC: C.EDB 17:53 → C.EDC 21:00
DX: R60.0 Localized edema (principal); I87.2 Venous insufficiency (chronic) (peripheral); J44.9 Chronic obstructive pulmonary disease, unspecified; N40.0 Benign prostatic hyperplasia without lower urinary tract symptoms; E78.00 Pure hypercholesterolemia, unspecified; I11.0 Hypertensive heart disease with heart failure; I50.9 Heart failure, unspecified; R00.1 Bradycardia, unspecified; I49.5 Sick sinus syndrome; Z85.51 Personal history of malignant neoplasm of bladder; Z86.73 Personal history of transient ischemic attack (TIA), and cerebral infarction without residual deficits; Z87.891 Personal history of nicotine dependence; Z82.49 Family history of ischemic heart disease and other diseases of the circulatory system

== ENCOUNTER → 2017-09-23 | Day surgery (SDC) | payer BC ==
[2017-08-25 08:58] VITALS: BMI 36.0
[2017-09-18 09:38] VITALS: Ht 167.6 cm; Wt 102.3 kg
[~2017-09-23] VITALS: Ht 167.6 cm; Wt 102.3 kg
[~2017-09-23] MED LIST changes: +BRIM0.15 OPB; +IOPAMIDOL INJ 61% 15 ML VIAL ONE; +MISCCAP80 PO; +NRN/600 PO; +SODIUM CHLORIDE 0.9% INJ 10 ML VIAL ONE; +TBRDOPO OPB; -TRAV0.00 OPB; -VNTHFA/IN
[2017-09-23] MEDS: LIDOCAINE HCL 1% MPF 5 ML VIAL ONE (09:52)
--- NOTE | 2017-09-23 09:53 | [facility] Post Operative Brief Note ---
Immediate Operative Summary Operative Date Sep 23, 2017. Pre-Operative Diagnosis Lumbar Radiculopathy Post-Operative Diagnosis Same Procedure(s) Performed Lumbar Epidural Steroid Injection Surgeon Dr. Morrell Furnace Packer Surgeon(s) None Estimated Blood Loss None Findings Consistent with Post-Op Diagnosis Specimens None Drains None Anesthesia Type Local Complication(s) none Disposition Disposition:
--- NOTE | 2017-09-23 09:54 | Discharge Instructions ---
Discharge Instructions Date of Service Sep 23, 2017. Visit Reason for Visit: Lumbar Radiculopathy Discharge Discharge Diagnosis / Problem: right leg pain Discharge Goals Goal(s): Decrease discomfort, Improve function Medications Stopped Medications Name(s): plavix stopped. last dose last thursday09/18/17 Activity Recommendations Activity Limitations: resume your previous activity Anesthesia . Post Anesthesia Instructions: If you have had General Anesthesia or IV Sedation: * Do not drive today. * Resume driving when surgeon permits. * Do not make important decisions or sign legal documents today. * Call surgeon for: 1. Temperature elevations greater than 101 degrees F. 2. Uncontrollable pain. 3. Excessive bleeding. 4. Persistent nausea and vomiting. 5. Medication intolerance (nausea, vomiting or rash). * For nausea and vomiting use only clear liquids such as: tea, soda, bouillon until nausea subsides, then gradually increase diet as tolerated. * If you have any concerns or questions, call your surgeon's office. If physician is unavailable and it is an emergency, call 911 or go to the nearest emergency room. . Diet Recommendations Recommended Home Diet: resume previous diet Procedures Procedures Performed: Lumbar Epidural Steroid Injection Pending Studies Studies pending at discharge: no Medical Emergencies . Who to Call and When: Medical Emergencies: If at any time you feel your situation is an emergency, please call 911 immediately. . Non-Emergent Contact Non-Emergency issues call your: Specialist . . "Provider Documentation" section prepared by Toni Morrell. .
[2017-09-23 09:56] VITALS: TEMP 36.7
--- NOTE | 2017-09-23 10:08 | OPERATIVE REPORT ---
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 POSTOPERATIVE DIAGNOSIS: Same. PROCEDURE: Left paramedian L5-S1 interlaminar epidural steroid injection under fluoroscopic guidance. INDICATIONS: The patient is an 87-year-old white male who has problems of radicular pain down the leg. He presents today for an epidural injection to provide him with relief. PHYSICAL EXAMINATION: Pleasant male, seated comfortably. He is without any focal weakness. He has no sensory deficits. Negative seated straight leg raises. CONSENT: Verbal and written consent was obtained from the patient. Risks and benefits were reviewed. Risks include but are not limited to epidural abscess, epidural hematoma, allergic reaction, dural puncture. The patient wishes to proceed. PROCEDURE IN DETAIL: The patient was taken back to special procedures room of [facility] where he was maintained in a prone position. Backside was cleansed with Betadine x3 and a dry sterile dressing was applied. Fluoroscope was used to identify the L5-S1 interlaminar space. Overlying skin was anesthetized with 4 mL of lidocaine 1% at that site. Then, a Tuohy needle was entered at the L5-S1 interlaminar space. It was advanced under lateral fluoroscopic guidance with a loss of resistance at 7.5 cm. Isovue-300 contrast 1 mL was injected, which showed epidural uptake pattern and spread. He underwent injection after negative aspiration of 40 mg of Depo-Medrol and 4 mL of preservative-free sodium chloride. Injection was well tolerated. DISPOSITION: 1. The patient was taken out into the discharge recovery area where he will be discharged home once discharge criteria have been met. 2. Follow up in the [facility] office in 4 weeks' time. I attest to the content of the Intraoperative Record and any orders documented therein. Any exception s are noted below.
[2017-09-23 10:18] VITALS: BP 168/75; PULSE 54; O2SAT 94
== END | disposition home or self-care (01) ==
LOC: X.SURG 08:34
PROVIDERS: ATTEND Physical Medicine & Rehabilitation
DX: M48.061 Spinal stenosis, lumbar region without neurogenic claudication (principal); M54.16 Radiculopathy, lumbar region

== ENCOUNTER → 2017-11-20 | Outpatient (CLI) | payer BC ==
[~2017-11-20] MED LIST changes: -IOPAMIDOL INJ 61% 15 ML VIAL ONE; -SODIUM CHLORIDE 0.9% INJ 10 ML VIAL ONE
--- NOTE | 2017-11-20 16:54 | DIAGNOSTIC IMAGING REPORT ---
RIGHT HIP 2 VIEWS HISTORY: PAIN IN R HIP COMPARISON: None. FINDINGS: There is no fracture or dislocation. Soft tissues are unremarkable. No radiopaque foreign bodies. Minimal cartilage space narrowing for age. IMPRESSION: No fracture or dislocation within the right hip. Electronically signed by: Juanpablo Rincon M.D. 11/20/2017 4:53 PM Dictated Date/Time: 11/20/2017 4:50 PM
== END | disposition home or self-care (01) ==
LOC: C.RAD1850 16:35
PROVIDERS: ATTEND Family Medicine
DX: M25.551 Pain in right hip (principal); Z91.81 History of falling

== ENCOUNTER 2018-08-13 19:21 | Inpatient (IN) ==
[2018-08-13 20:10] LABS: Appearance Urine Cloudy (Clear); Bacteria Urine Automated Negative (Negative); Color Urine Dark Yellow; Glucose Urine UA Negative (Negative); Ketones Urine Trace (Negative); Leukocyte Esterase Urine Trace (Negative); Nitrite Urine Negative (Negative); Protein Urine Negative (Negative); Specific Gravity Urine 1.031 (1.000-1.030); Urobilinogen Urine Negative (Negative)
[2018-08-13 20:12] LABS: Bilirubin Urine Negative (Negative); Ictotest Urine Negative (Negative)
[2018-08-13 20:23] LABS: Mucus Urine Present (None Prsent)
[2018-08-13 20:24] LABS: Basophils # (auto) 0.03 K/uL (0-0.2); Basophils % (auto) 0.3 %; Eosinophils # (auto) 0.13 K/uL (0-0.5); Eosinophils % (auto) 1.2 %; Hematocrit (blood only) 36.4 % (42-52); Hemoglobin 12.2 g/dL (14.0-18.0); Immature Granulocytes # (auto) 0.03 K/uL (0.00-0.02); Immature Granulocytes % (auto) 0.3 %; Lymphocytes # (auto) 0.97 K/uL (1.2-3.4); Lymphocytes % (auto) 9.1 %; Mean Corpuscular Hgb Conc 33.5 g/dL (32-36); Mean Corpuscular Volume 99.5 fL (80-100); Monocytes # (auto) 0.61 K/uL (0.11-0.59); Monocytes % (auto) 5.7 %; Neutrophils # (auto) 8.85 K/uL (1.4-6.5); Neutrophils % (auto) 83.4 %; Platelet Count 321 K/uL (130-400); RDW Coefficient of Variation 13.6 % (11.5-14.5); RDW Standard Deviation 49.5 fL (36.4-46.3); Red Blood Count 3.66 M/uL (4.7-6.1); White Blood Count 10.62 K/uL (4.8-10.8)
[2018-08-13 20:41] LABS: Alanine Aminotransferase 23 U/L (12-78); Albumin Level 3.4 gm/dl (3.4-5.0); Aspartate Aminotransferase 17 U/L (15-37); BUN Creatinine Ratio 21.6 (10-20); Blood Urea Nitrogen 41 mg/dl (7-18); Calcium 9.2 mg/dl (8.5-10.1); Carbon Dioxide 26 mmol/L (21-32); Chloride 96 mmol/L (98-107); Creatinine Clr Calc Pharmacy 31.7 ml/min; Est GFR (African American) 35.5; Est GFR (Non-African American) 30.6; Glucose 149 mg/dl (70-99); Magnesium 2.6 mg/dl (1.8-2.4); Potassium 6.6 mmol/L (3.5-5.1); Sodium 127 mmol/L (136-145)
[2018-08-13 20:52] LABS: Albumin Globulin Ratio 0.7 (0.9-2); Alkaline Phosphatase 146 U/L (45-117); Bilirubin,Total 0.2 mg/dl (0.2-1); Total Protein 8.4 gm/dl (6.4-8.2); Troponin I < 0.015 ng/ml (0-0.045)
[2018-08-13 22:30] LABS: Amphetamines+Metham, Urine Neg (Neg); Barbiturates, Urine Pos (Neg); Benzodiazepine, Urine Neg (Neg); Cocaine, Urine Neg (Neg); MDMA (Ecstacy), Urine Neg (Neg); Methadone, Urine Neg (Neg); Opiate, Urine Neg (Neg); Phencyclidine, Urine Neg (Neg)
[2018-08-13 23:05] LABS: Allen Test Pos (Pos); HCO3 ABG 28 mmol/L (19-24); Oxygen Saturation ABG 96.5 % (90-95); PCO2 ABG 48 mmHg (35-46); PO2 ABG 89 mm/Hg (80-95); pH ABG 7.38 (7.35-7.45)
[2018-08-14] LABS: Influenza A virus by PCR Neg for Influ A (Neg); Influenza B virus by PCR Neg for Influ B (Neg)
[2018-08-14 02:13] LABS: Basophils # (auto) 0.02 K/uL (0-0.2); Basophils % (auto) 0.3 %; Eosinophils # (auto) 0.11 K/uL (0-0.5); Eosinophils % (auto) 1.4 %; Hemoglobin 11.9 g/dL (14.0-18.0); Immature Granulocytes # (auto) 0.02 K/uL (0.00-0.02); Immature Granulocytes % (auto) 0.3 %; Lymphocytes # (auto) 0.98 K/uL (1.2-3.4); Lymphocytes % (auto) 12.4 %; Mean Corpuscular Volume 98.6 fL (80-100); Mean Platelet Volume 9.7 fL (7.4-10.4); Monocytes # (auto) 0.38 K/uL (0.11-0.59); Monocytes % (auto) 4.8 %; Neutrophils % (auto) 80.8 %; Platelet Count 267 K/uL (130-400); RDW Coefficient of Variation 13.7 % (11.5-14.5); RDW Standard Deviation 49.1 fL (36.4-46.3); Red Blood Count 3.55 M/uL (4.7-6.1); Reticulocytes # 0.07 10^6/uL (0.02-0.10); White Blood Count 7.91 K/uL (4.8-10.8)
[2018-08-14 02:39] LABS: BUN Creatinine Ratio 27.9 (10-20); Calcium 8.8 mg/dl (8.5-10.1); Creatinine Clr Calc Pharmacy 43.4 ml/min; Est GFR (African American) 52.9; Est GFR (Non-African American) 45.6; Potassium 5.7 mmol/L (3.5-5.1)
[2018-08-14 02:43] LABS: Ferritin 129.2 ng/ml (8-388)
[2018-08-14 02:57] LABS: Folate (Folic Acid) 5.74 ng/ml (>5.38)
[2018-08-14 07:17] LABS: BUN Creatinine Ratio 27.3 (10-20); Calcium 8.9 mg/dl (8.5-10.1); Creatinine Clr Calc Pharmacy 47.6 ml/min; Est GFR (Non-African American) 50.9; Potassium 5.8 mmol/L (3.5-5.1)
[2018-08-14 07:23] LABS: Estimated Average Glucose 131 mg/dl
[2018-08-14 13:48] LABS: BUN Creatinine Ratio 20.9 (10-20); Calcium 9.5 mg/dl (8.5-10.1); Creatinine Clr Calc Pharmacy 46.1 ml/min; Est GFR (African American) 56.9; Est GFR (Non-African American) 49.1; Potassium 5.1 mmol/L (3.5-5.1)
[2018-08-15 08:55] LABS: Calcium 9.3 mg/dl (8.5-10.1); Creatinine Clr Calc Pharmacy 54.6 ml/min; Est GFR (African American) 69.6; Potassium 4.5 mmol/L (3.5-5.1)
[2018-08-16 06:07] LABS: BUN Creatinine Ratio 16.4 (10-20); Calcium 8.8 mg/dl (8.5-10.1); Creatinine Clr Calc Pharmacy 70.7 ml/min; Est GFR (African American) 90.8; Est GFR (Non-African American) 78.3
[2018-08-17 06:52] LABS: INR 1.2 (0.9-1.1); Prothrombin Time 12.1 Seconds (9.0-12.0)
[2018-08-17 07:19] LABS: Calcium 8.9 mg/dl (8.5-10.1); Creatinine Clr Calc Pharmacy 69.1 ml/min; Est GFR (African American) 90.4; Potassium 3.8 mmol/L (3.5-5.1)
[2018-08-17 15:31] LABS: Amobarbital, Urine Conf NEGATIVE NG/ML (CUTOFF=100); Phenobarbital, Urine >8000 NG/ML (CUTOFF=100); Secobarbital, Urine Conf NEGATIVE NG/ML (CUTOFF=100)
[2018-08-17 15:38] LABS: BUN Creatinine Ratio 22.8 (10-20); Calcium 8.8 mg/dl (8.5-10.1); Creatinine Clr Calc Pharmacy 66.8 ml/min; Est GFR (African American) 89.1; Est GFR (Non-African American) 76.9
[2018-08-18 07:29] LABS: BUN Creatinine Ratio 19.1 (10-20); Calcium 9.2 mg/dl (8.5-10.1); Creatinine Clr Calc Pharmacy 57.2 ml/min; Est GFR (African American) 75.3; Potassium 3.6 mmol/L (3.5-5.1)
[2018-08-19 07:19] LABS: BUN Creatinine Ratio 22.9 (10-20); Calcium 8.9 mg/dl (8.5-10.1); Creatinine Clr Calc Pharmacy 57.1 ml/min; Est GFR (African American) 74.5; Est GFR (Non-African American) 64.3; Potassium 3.7 mmol/L (3.5-5.1)
[2018-08-20 08:12] LABS: Hematocrit (blood only) 35.6 % (42-52); Hemoglobin 12.9 g/dL (14.0-18.0); Mean Corpuscular Hgb Conc 36.2 g/dL (32-36); Mean Corpuscular Volume 94.2 fL (80-100); Mean Platelet Volume 9.5 fL (7.4-10.4); Platelet Count 321 K/uL (130-400); RDW Coefficient of Variation 12.9 % (11.5-14.5); RDW Standard Deviation 44.8 fL (36.4-46.3); Red Blood Count 3.78 M/uL (4.7-6.1)
[2018-08-20 09:37] LABS: BUN Creatinine Ratio 25.4 (10-20); Calcium 8.9 mg/dl (8.5-10.1); Creatinine Clr Calc Pharmacy 74.1 ml/min; Est GFR (African American) 93.1; Est GFR (Non-African American) 80.3; Potassium 3.8 mmol/L (3.5-5.1)
== END 2018-08-20 18:08 | disposition home health service (06) ==
LOC: ED 19:21 → SUATTDRO 22:52 → 2N 22:52

== ENCOUNTER 2019-09-02 11:18 | Observation (INO) ==
[2019-09-02] MEDS ORDERED: SODIUM CHLORIDE 0.9% 500 ML IV SCH (11:45)
[2019-09-02 12:10] LABS: Basophils # (auto) 0.02 K/uL (0-0.2); Basophils % (auto) 0.3 %; Eosinophils % (auto) 1.6 %; Hematocrit (blood only) 37.2 % (42-52); Hemoglobin 13.2 g/dL (14.0-18.0); Immature Granulocytes # (auto) 0.02 K/uL (0.00-0.02); Immature Granulocytes % (auto) 0.3 %; Lymphocytes # (auto) 1.21 K/uL (1.2-3.4); Lymphocytes % (auto) 19.5 %; Mean Corpuscular Hemoglobin 33.3 pg (25-34); Mean Corpuscular Hgb Conc 35.5 g/dL (32-36); Mean Corpuscular Volume 93.9 fL (80-100); Mean Platelet Volume 11.2 fL (7.4-10.4); Monocytes # (auto) 0.52 K/uL (0.11-0.59); Monocytes % (auto) 8.4 %; Neutrophils # (auto) 4.35 K/uL (1.4-6.5); Neutrophils % (auto) 69.9 %; Platelet Count 278 K/uL (130-400); RDW Coefficient of Variation 13.3 % (11.5-14.5); RDW Standard Deviation 45.6 fL (36.4-46.3); Red Blood Count 3.96 M/uL (4.7-6.1); White Blood Count 6.22 K/uL (4.8-10.8)
[2019-09-02 12:11] LABS: Base Excess VBG 3.7 mEq/L; pH VBG 7.43 (7.36-7.41)
--- NOTE | 2019-09-02 12:14 | Emergency Department Note ---
Entered by Anders Roberts acting as a scribe for Daniel Wagoner DO History of Present Illness General Chief complaint: Hyperglycemia Stated complaint: HIGH SUGAR Time Seen by Provider: 09/02/19 11:28 Source: patient Limitations: no limitations History of Present Illness Onset (ago): day(s) 4 Location: head Severity: similar to prior episodes Pain Consistency: + intermittent Exacerbated By: not by other (laying flat) Associated symptoms: + denies other symptoms (abdominal pain, falls, vomiting) and + other (increased thirst); no fever/chills (fevers) and no loss of appetite The patient is a 89 year old male who presents to the Emergency Room with complaints of intermittent confusion starting 4 days ago. The patient states he has been really thirsty recently and states he has been drinking water by the [employer]. He states he drinks 32 ounces of water at a time. He notes he has been urinating more frequently. The patient's daughter states the patient was really confused 4 days ago and states he does not look as confused right now. The daughter states the patient's nurse practitioner noted the patient might have a high sugar. The daughter states the patient had symptoms like this before when his sugar was high because he was taking prednisone. She states the patient does not have diabetes. The patient states he has been eating fine. He states he has COPD. He denies having fevers, abdominal pain, falls, trouble breathing when laying flat, and vomiting. He states he had right eye surgery. He notes he has been using inhalers. Home Medications Home Medications Medication Instructions Recorded Confirmed Type Probiotic 1 tab PO QAM 06/28/18 09/02/19 History clopidogrel 75 mg PO 3XWK 06/28/18 09/02/19 History docusate sodium [Colace] 100 mg PO QAM 06/28/18 09/02/19 History dutasteride [Avodart] 0.5 mg PO QAM 06/28/18 09/02/19 History levothyroxine 75 mcg PO QAM 06/28/18 09/02/19 History pravastatin 20 mg PO HS 06/28/18 09/02/19 History primidone 1.5 tab PO BID 06/28/18 09/02/19 History Brovana 15 mcg INHALATION BID 08/13/18 09/02/19 History PreserVision AREDS-2 1 tab PO BID 08/13/18 09/02/19 History amlodipine [Norvasc] 10 mg PO QAM 08/13/18 09/02/19 History betamethasone dipropionate 1 applic TOPICAL BID 08/13/18 09/02/19 History budesonide 2 ml INHALATION BID 08/13/18 09/02/19 History cholecalciferol (vitamin D3) 5,000 unit PO QAM 08/13/18 09/02/19 History [Vitamin D3] clotrimazole 1 applic TOPICAL BID 08/13/18 09/02/19 History oxycodone-acetaminophen [Percocet] 1 tab PO Q4 PRN 08/13/18 09/02/19 History sennosides [senna] 8.6 mg PO QAM 12/09/18 09/02/19 History torsemide 20 mg PO DIRECTED 12/09/18 09/02/19 History tamsulosin 0.4 mg capsule 0.4 mg PO HS #90 cap 05/13/19 09/02/19 Rx acetaminophen 325 mg PO QID PRN 09/02/19 09/02/19 History erythromycin 1 applic OPR QID 09/02/19 09/02/19 History escitalopram oxalate 5 mg PO QAM 09/02/19 09/02/19 History hydralazine 100 mg PO TID 09/02/19 09/02/19 History psyllium [Reguloid, Sugar Free] 1 tsp PO QAM 09/02/19 09/02/19 History tafluprost (PF) [Zioptan (PF)] 1 drp OPB HS 09/02/19 09/02/19 History white petrolatum-mineral oil 0.25 inch OPHTHALMIC (EYE) PM 09/02/19 09/02/19 History [Soothe Night Time Lubricant] Allergies Allergy/AdvReac Type Severity Reaction Status Date / Time cephalexin Allergy Intermediate RASH Verified 09/02/19 13:28 doxycycline Allergy Intermediate RASH Verified 09/02/19 13:28 propranolol Allergy Mild BRADYCARDIA Verified 09/02/19 13:28 hydrochlorothiazide Allergy Unknown Unknown Verified 09/02/19 13:28 sulfamethoxazole AdvReac Intermediate hyperkalemi Verified 09/02/19 13:28 [From Bactrim] a trimethoprim [From Bactrim] AdvReac Intermediate hyperkalemi Verified 09/02/19 13:28 a Past Med/Surg History Medical History Bilateral lower extremity edema (Acute) Bladder cancer REASON FOR PROCEDURE BPH (benign prostatic hyperplasia) Carbon monoxide exposure (Acute) Chronic obstructive pulmonary disease STABLE COPD exacerbation Dizziness (Acute) History of tremor Hx of deep venous thrombosis PER RECORDS; PATIENT DENIES Hx of spinal stenosis Hyperlipidemia Hypertension Hyponatremia (Acute) Hypothyroidism Infection due to urethral catheter (Inactive) Leg pain, left (Acute) Obesity Seizure PER RECORDS; PATIENT DENIES Sinusitis (Acute) Sleep apnea CPAP Stasis dermatitis (Acute) Stroke 5+ YEARS AGO PER CHART REVIEW; NO RESIDUAL DEFICITS= ON PLAVIX Surgical History History of bladder surgery History of cataract surgery B/L History of prostate surgery History of surgical procedure on eye proper using laser right eye Hx of knee surgery Hx of toe surgery Family History Other Family history non-contributory No family history of adverse response to anesthesia Social History Preferred Language: Telugu Communication Ability: Effective Visual Impairment: No Limitations 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 and A total of 10 systems reviewed and were otherwise negative Physical Exam Vital Signs Vital Signs - 24 hr 09/02/19 11:23 09/02/19 11:40 09/02/19 12:00 Temperature 36.6 C Temperature Source Oral Pulse Rate 85 80 77 Pulse Rate [Apical] Pulse Rate from SpO2 Sensor 80 Pulse Rhythm Regular Pulse Strength Normal Respiratory Rate 18 20 22 Respiratory Effort / Characteristics Non-Labored Respiratory Depth Normal Blood Pressure 167/79 H Blood Pressure [Right Arm] Blood Pressure Mean 108 Blood Pressure Mean [Right Arm] Pulse Oximetry 94 92 Oxygen Delivery Method Room Air Sepsis Recent Fever Within 48 Hours No Sepsis Action Taken by Nursing No Action Required 09/02/19 12:11 09/02/19 12:12 09/02/19 12:30 Temperature Temperature Source Pulse Rate 77 78 75 Pulse Rate [Apical] 77 Pulse Rate from SpO2 Sensor 77 77 75 Pulse Rhythm Pulse Strength Respiratory Rate 19 22 18 Respiratory Effort / Characteristics Respiratory Depth Blood Pressure 173/88 H 178/89 H Blood Pressure [Right Arm] 173/88 H Blood Pressure Mean 125 137 Blood Pressure Mean [Right Arm] 116 Pulse Oximetry 90 90 91 Oxygen Delivery Method Room Air Sepsis Recent Fever Within 48 Hours Sepsis Action Taken by Nursing 09/02/19 12:31 09/02/19 13:00 09/02/19 13:01 Temperature Temperature Source Pulse Rate 74 76 75 Pulse Rate [Apical] Pulse Rate from SpO2 Sensor 74 75 75 Pulse Rhythm Pulse Strength Respiratory Rate 17 18 13 Respiratory Effort / Characteristics Respiratory Depth Blood Pressure 186/84 H Blood Pressure [Right Arm] Blood Pressure Mean 97 Blood Pressure Mean [Right Arm] Pulse Oximetry 91 91 91 Oxygen Delivery Method Sepsis Recent Fever Within 48 Hours Sepsis Action Taken by Nursing 09/02/19 13:30 09/02/19 13:31 09/02/19 13:32 Temperature Temperature Source Pulse Rate 77 76 77 Pulse Rate [Apical] Pulse Rate from SpO2 Sensor 75 78 77 Pulse Rhythm Pulse Strength Respiratory Rate 18 21 15 Respiratory Effort / Characteristics Respiratory Depth Blood Pressure 216/103 H Blood Pressure [Right Arm] Blood Pressure Mean 111 Blood Pressure Mean [Right Arm] Pulse Oximetry 96 96 98 Oxygen Delivery Method Sepsis Recent Fever Within 48 Hours Sepsis Action Taken by Nursing 09/02/19 13:47 09/02/19 14:00 09/02/19 14:01 Temperature Temperature Source Pulse Rate 81 81 81 Pulse Rate [Apical] Pulse Rate from SpO2 Sensor 81 81 63 Pulse Rhythm Pulse Strength Respiratory Rate 18 23 Respiratory Effort / Characteristics Respiratory Depth Blood Pressure 187/86 H 189/93 H Blood Pressure [Right Arm] Blood Pressure Mean 147 115 Blood Pressure Mean [Right Arm] Pulse Oximetry 93 92 Oxygen Delivery Method Sepsis Recent Fever Within 48 Hours Sepsis Action Taken by Nursing 09/02/19 14:30 09/02/19 14:31 Temperature Temperature Source Pulse Rate 79 78 Pulse Rate [Apical] Pulse Rate from SpO2 Sensor 80 79 Pulse Rhythm Pulse Strength Respiratory Rate 17 20 Respiratory Effort / Characteristics Respiratory Depth Blood Pressure 212/107 H Blood Pressure [Right Arm] Blood Pressure Mean 127 Blood Pressure Mean [Right Arm] Pulse Oximetry 93 92 Oxygen Delivery Method Sepsis Recent Fever Within 48 Hours Sepsis Action Taken by Nursing GENERAL: Patient is awake alert in no acute distress patient is resting comfortably and showing no signs of anxiety EYES: The conjunctivae are clear. There is ecchymosis in the infraorbital region of the right eye consistent with patient's recent surgery. EARS, NOSE, MOUTH AND THROAT: The nose is without any evidence of any deformity. Mucous membranes are moist. Tongue is midline. NECK: The neck is nontender and supple. RESPIRATORY: Diminished breath sounds are noted throughout. There is expiratory wheezing in both upper lung plata. There is no tachypnea or conversational dyspnea. CARDIOVASCULAR: Regular rate and rhythm noted there no murmurs rubs or gallops normal S1 normal S2. GASTROINTESTINAL: The abdomen is soft. Abdomen is nontender. MUSCULOSKELETAL/EXTREMITIES: There is no evidence of gross deformity full range of motion is noted in the hips and shoulders. SKIN: Trace pedal edema was noted bilaterally. NEUROLOGIC: Patient is awake alert and oriented x3. Course Course 1136: The patient was evaluated in room C10, and a complete history and physical examination were performed. 1455: [facility] the [facility] the patient for further management. Administered Medications Discontinued Medications Sodium Chloride (Nss) 500 mls @ 999 mls/hr IV .Q31M DEB Stop: 09/02/19 12:15 Last Infusion: 09/02/19 12:45 Dose: 0 mls/hr Documented by: [id number] Admin: 09/02/19 12:13 Dose: 999 mls/hr Documented by: [id number] Sodium Chloride (Nss 1000ml) 500 mls @ 999 mls/hr IV .Q31M ONE Stop: 09/02/19 13:13 Last Infusion: 09/02/19 13:23 Dose: 0 mls/hr Documented by: [id number] Admin: 09/02/19 12:48 Dose: 999 mls/hr Documented by: [id number] Insulin Human Regular (Novolin R U-100 Per Unit) 6 units IV NOW STA Stop: 09/02/19 12:44 Last Admin: 09/02/19 13:23 Dose: 6 units Documented by: [id number] Cosigned by: [id number] Medical Decision Making Differential Diagnosis Differential Diagnosis includes but is not limited to dehydration, stroke, anemia, hypoglycemia, hyponatremia, hypernatremia, urinary tract infection, pneumonia, bronchitis, sepsis, gastroenteritis, additional abdominal pathology, metabolic abnormalities and infections. Medical Records Attestation: I reviewed the patient's medical records. Home Medications Current Medication List: was personally reviewed by me Laboratory Data Attestation: I reviewed the patient's lab results. Result diagrams: 09/02/19 11:56 09/02/19 11:56 Lab Results 09/02/19 09/02/19 09/02/19 Range/Units 11:25 11:56 11:56 WBC 6.22 (4.8-10.8) K/uL RBC 3.96 L (4.7-6.1) M/uL Hgb 13.2 L (14.0-18.0) g/dL Hct 37.2 L (42-52) % MCV 93.9 (80-100) fL MCH 33.3 (25-34) pg MCHC 35.5 (32-36) g/dL RDW Std Deviation 45.6 (36.4-46.3) fL RDW Coeff of Sim 13.3 (11.5-14.5) % Plt Count 278 (130-400) K/uL MPV 11.2 H (7.4-10.4) fL Immature Gran % (Auto) 0.3 % Neut % (Auto) 69.9 % Lymph % (Auto) 19.5 % Craig % (Auto) 8.4 % Eos % (Auto) 1.6 % Baso % (Auto) 0.3 % Immature Gran # (Auto) 0.02 (0.00-0.02) K/uL Neut # (Auto) 4.35 (1.4-6.5) K/uL Lymph # (Auto) 1.21 (1.2-3.4) K/uL Craig # (Auto) 0.52 (0.11-0.59) K/uL Eos # (Auto) 0.10 (0-0.5) K/uL Baso # (Auto) 0.02 (0-0.2) K/uL PT 12.4 H (9.0-12.0) Seconds INR 1.2 H (0.9-1.1) APTT 33.6 H (21.0-31.0) Seconds PTT Ratio 1.2 VBG pH (7.36-7.41) VBG pCO2 (38-50) mmHg VBG pO2 mmHg VBG HCO3 mmol/L VBG O2 Saturation % VBG Base Excess mEq/L Barometric Pressure mm/Hg Sodium (136-145) mmol/L Potassium (3.5-5.1) mmol/L Chloride (98-107) mmol/L Carbon Dioxide (21-32) mmol/L Anion Gap (3-11) BUN (7-18) mg/dl Creatinine (0.6-1.4) mg/dl Est Cr Clr Drug Dosing Est GFR ( Amer) Est GFR (Non-Af Amer) BUN/Creatinine Ratio (10-20) Glucose (70-99) mg/dl POC Glucose 454 H* (70-99) mg/dl Calcium (8.5-10.1) mg/dl Magnesium (1.8-2.4) mg/dl Total Bilirubin (0.2-1) mg/dl AST (15-37) U/L ALT (12-78) U/L Alkaline Phosphatase (45-117) U/L Troponin I (0-0.045) ng/ml Total Protein (6.4-8.2) gm/dl Albumin (3.4-5.0) gm/dl Globulin (2.5-4.0) gm/dl Albumin/Globulin Ratio (0.9-2) Beta-Hydroxybutyric Acd (0.2-2.81) mg/dl TSH (0.300-4.500) uIu/ml Urine Color Urine Appearance (Clear) Urine pH (4.5-7.5) Ur Specific [place] (1.000-1.030) Urine Protein (Negative) Urine Glucose (UA) (Negative) Urine Ketones (Negative) Urine Blood (Negative) Urine Nitrite (Negative) Urine Bilirubin (Negative) Urine Urobilinogen (Negative) Ur Leukocyte Esterase (Negative) Urine WBC (Auto) (0-5) /hpf Urine RBC (Auto) (0-4) /hpf U Hyaline Cast (Auto) U Epithel Cells (Auto) (0-5) /lpf Urine Bacteria (Auto) (Negative) Urine Yeast (None Prsent) 09/02/19 09/02/19 09/02/19 Range/Units 11:56 11:56 12:40 WBC (4.8-10.8) K/uL RBC (4.7-6.1) M/uL Hgb (14.0-18.0) g/dL Hct (42-52) % MCV (80-100) fL MCH (25-34) pg MCHC (32-36) g/dL RDW Std Deviation (36.4-46.3) fL RDW Coeff of Sim (11.5-14.5) % Plt Count (130-400) K/uL MPV (7.4-10.4) fL Immature Gran % (Auto) % Neut % (Auto) % Lymph % (Auto) % Craig % (Auto) % Eos % (Auto) % Baso % (Auto) % Immature Gran # (Auto) (0.00-0.02) K/uL Neut # (Auto) (1.4-6.5) K/uL Lymph # (Auto) (1.2-3.4) K/uL Craig # (Auto) (0.11-0.59) K/uL Eos # (Auto) (0-0.5) K/uL Baso # (Auto) (0-0.2) K/uL PT (9.0-12.0) Seconds INR (0.9-1.1) APTT (21.0-31.0) Seconds PTT Ratio VBG pH 7.43 H (7.36-7.41) VBG pCO2 44 (38-50) mmHg VBG pO2 35 mmHg VBG HCO3 29 mmol/L VBG O2 Saturation 65.0 % VBG Base Excess 3.7 mEq/L Barometric Pressure 737.4 mm/Hg Sodium 132 L (136-145) mmol/L Potassium 3.5 (3.5-5.1) mmol/L Chloride 96 L (98-107) mmol/L Carbon Dioxide 28 (21-32) mmol/L Anion Gap 9.0 (3-11) BUN 13 (7-18) mg/dl Creatinine 1.06 (0.6-1.4) mg/dl Est Cr Clr Drug Dosing Not Reportable Est GFR ( Amer) 72.3 Est GFR (Non-Af Amer) 62.4 BUN/Creatinine Ratio 12.5 (10-20) Glucose 460 H* (70-99) mg/dl POC Glucose (70-99) mg/dl Calcium 9.4 (8.5-10.1) mg/dl Magnesium 2.1 (1.8-2.4) mg/dl Total Bilirubin 0.3 (0.2-1) mg/dl AST 14 L (15-37) U/L ALT 15 (12-78) U/L Alkaline Phosphatase 171 H (45-117) U/L Troponin I < 0.015 (0-0.045) ng/ml Total Protein 7.8 (6.4-8.2) gm/dl Albumin 3.0 L (3.4-5.0) gm/dl Globulin 4.8 H (2.5-4.0) gm/dl Albumin/Globulin Ratio 0.6 L (0.9-2) Beta-Hydroxybutyric Acd 26.13 H (0.2-2.81) mg/dl TSH 1.450 (0.300-4.500) uIu/ml Urine Color Yellow Urine Appearance Cloudy A (Clear) Urine pH 5.5 (4.5-7.5) Ur Specific [place] 1.039 H (1.000-1.030) Urine Protein 1+ H (Negative) Urine Glucose (UA) 3+ H (Negative) Urine Ketones 3+ H (Negative) Urine Blood Negative (Negative) Urine Nitrite Negative (Negative) Urine Bilirubin Negative (Negative) Urine Urobilinogen Negative (Negative) Ur Leukocyte Esterase Negative (Negative) Urine WBC (Auto) 1-5 (0-5) /hpf Urine RBC (Auto) >30 H (0-4) /hpf U Hyaline Cast (Auto) Not Reportable U Epithel Cells (Auto) 5-10 H (0-5) /lpf Urine Bacteria (Auto) 1+ H (Negative) Urine Yeast Budding w/ Hyphae A (None Prsent) 09/02/19 09/02/19 Range/Units 13:20 14:25 WBC (4.8-10.8) K/uL RBC (4.7-6.1) M/uL Hgb (14.0-18.0) g/dL Hct (42-52) % MCV (80-100) fL MCH (25-34) pg MCHC (32-36) g/dL RDW Std Deviation (36.4-46.3) fL RDW Coeff of Sim (11.5-14.5) % Plt Count (130-400) K/uL MPV (7.4-10.4) fL Immature Gran % (Auto) % Neut % (Auto) % Lymph % (Auto) % Craig % (Auto) % Eos % (Auto) % Baso % (Auto) % Immature Gran # (Auto) (0.00-0.02) K/uL Neut # (Auto) (1.4-6.5) K/uL Lymph # (Auto) (1.2-3.4) K/uL Craig # (Auto) (0.11-0.59) K/uL Eos # (Auto) (0-0.5) K/uL Baso # (Auto) (0-0.2) K/uL PT (9.0-12.0) Seconds INR (0.9-1.1) APTT (21.0-31.0) Seconds PTT Ratio VBG pH (7.36-7.41) VBG pCO2 (38-50) mmHg VBG pO2 mmHg VBG HCO3 mmol/L VBG O2 Saturation % VBG Base Excess mEq/L Barometric Pressure mm/Hg Sodium (136-145) mmol/L Potassium (3.5-5.1) mmol/L Chloride (98-107) mmol/L Carbon Dioxide (21-32) mmol/L Anion Gap (3-11) BUN (7-18) mg/dl Creatinine (0.6-1.4) mg/dl Est Cr Clr Drug Dosing Est GFR ( Amer) Est GFR (Non-Af Amer) BUN/Creatinine Ratio (10-20) Glucose (70-99) mg/dl POC Glucose 401 H* 290 H (70-99) mg/dl Calcium (8.5-10.1) mg/dl Magnesium (1.8-2.4) mg/dl Total Bilirubin (0.2-1) mg/dl AST (15-37) U/L ALT (12-78) U/L Alkaline Phosphatase (45-117) U/L Troponin I (0-0.045) ng/ml Total Protein (6.4-8.2) gm/dl Albumin (3.4-5.0) gm/dl Globulin (2.5-4.0) gm/dl Albumin/Globulin Ratio (0.9-2) Beta-Hydroxybutyric Acd (0.2-2.81) mg/dl TSH (0.300-4.500) uIu/ml Urine Color Urine Appearance (Clear) Urine pH (4.5-7.5) Ur Specific [place] (1.000-1.030) Urine Protein (Negative) Urine Glucose (UA) (Negative) Urine Ketones (Negative) Urine Blood (Negative) Urine Nitrite (Negative) Urine Bilirubin (Negative) Urine Urobilinogen (Negative) Ur Leukocyte Esterase (Negative) Urine WBC (Auto) (0-5) /hpf Urine RBC (Auto) (0-4) /hpf U Hyaline Cast (Auto) U Epithel Cells (Auto) (0-5) /lpf Urine Bacteria (Auto) (Negative) Urine Yeast (None Prsent) Imaging Data Radiologist's Impression: Radiology results as stated below per my review and the radiologist's interpretation: XR chest 1V portable CLINICAL HISTORY: weakness dyspnea COMPARISON STUDY: 08/18/2018 FINDINGS: Moderate cardiomegaly. Lungs are clear. Diaphragms are smooth. Minimal platelike atelectasis left base. IMPRESSION: Moderate cardiomegaly. Otherwise negative study. ACT 112: Negative or not required by law. The above report was generated using voice recognition software. It may contain grammatical, syntax or spelling errors. Electronically signed by: John Santillan M.D. 09/02/2019 1:25 PM ECG Data Attestation: I personally reviewed and interpreted this ECG as follows: Indication: + weakness Rate (beats per minute): 77 Rhythm: + normal sinus ECG ST segments: + ST depression (lateral) ECG Findings: + Q waves (inferior); no PACs and no PVCs Comparison ECG Date: from (08/18/18) Change: no significant change Blood Pressure Blood Pressure Findings: Elevated blood pressure Blood Pressure Disposition: further management by hospitalist LIYAH Parker The patient is an 89-year-old male who presented to the emergency department with his daughter for an evaluation of generalized weakness. The patient is also had polyuria and polydipsia. The patient was found to have elevated blood sugar. He does not have a history of diabetes currently but he did have problems with hyperglycemia in the past when he was on steroids. At that time he was on insulin. I discussed the patient's laboratory and radiographic studies with him. No other acute findings were noted. The patient was treated with IV fluids and a small dose of IV insulin. His symptoms were significantly improved. He was not found to be in DKA. He was non-acidotic. I discussed his case with the on-call [facility] hospitalist. They have agreed to evaluate the patient in the emergency department for further management and disposition. Impression & Plan Hyperglycemia, Hypertension, Weakness Discharge Plan Visit Data Chief Complaint: Hyperglycemia Stated Complaint: HIGH SUGAR ED Provider: Daniel Wagoner Discharge Problem: Hyperglycemia, Hypertension, Weakness Patient Disposition: Being Evaluated by Hospitalist Forms Stand Alone Forms: [facility] Prescriptions Prescriptions: No Action tamsulosin 0.4 mg capsule 0.4 mg PO HS Qty: 90 RF: 1 clopidogrel 75 mg Tablet 75 mg PO 3XWK RF: 0 levothyroxine 75 mcg Tablet 75 mcg PO QAM RF: 0 pravastatin 20 mg Tablet 20 mg PO HS RF: 0 primidone 250 mg Tablet 1.5 tab PO BID RF: 0 Probiotic 3 billion cell Capsule 1 tab PO QAM RF: 0 docusate sodium [Colace] 100 mg Capsule 100 mg PO QAM RF: 0 dutasteride [Avodart] 0.5 mg Capsule 0.5 mg PO QAM RF: 0 amlodipine [Norvasc] 5 mg tablet 10 mg PO QAM RF: 0 betamethasone dipropionate 0.05 % Cream 1 applic TOPICAL BID RF: 0 budesonide 0.5 mg/2 mL Suspension For Nebulization 2 ml INHALATION BID RF: 0 oxycodone-acetaminophen [Percocet] 7.5-325 mg Tablet 1 tab PO Q4 PRN (Reason: Pain) RF: 0 clotrimazole 1 % Cream 1 applic TOPICAL BID RF: 0 Brovana 15 mcg/2 mL Solution For Nebulization 15 mcg INHALATION BID RF: 0 cholecalciferol (vitamin D3) [Vitamin D3] 5,000 unit Tablet 5,000 unit PO QAM RF: 0 PreserVision AREDS-2 [id number] [id number] Capsule 1 tab PO BID RF: 0 sennosides [senna] 8.6 mg Tablet 8.6 mg PO QAM RF: 0 torsemide 20 mg tablet 20 mg PO DIRECTED RF: 0 acetaminophen 325 mg Tablet 325 mg PO QID PRN (Reason: Pain) RF: 0 Reguloid, Sugar Free Powder 1 tsp PO QAM RF: 0 hydralazine 100 mg tablet 100 mg PO TID RF: 0 erythromycin 5 mg/gram (0.5 %) ointment 1 applic OPR QID RF: 0 escitalopram oxalate 5 mg tablet 5 mg PO QAM RF: 0 Soothe Night Time Lubricant 80-20 % Ointment 0.25 inch OPHTHALMIC (EYE) PM RF: 0 Zioptan (PF) 0.0015 % dropperette 1 drp OPB HS RF: 0 Referrals Referrals: [facility] [Primary Care Provider] - Discharge Problem: Hypertension Qualifiers: Hypertension type: unspecified Qualified Code(s): I10 - Essential (primary) hypertension The scribe's documentation has been prepared under my direction and personally reviewed by me in its entirety. I confirm that the note above accurately reflects all work, treatment, procedures, and medical decision making performed by me.
[2019-09-02 12:24] LABS: INR 1.2 (0.9-1.1); Partial Thromboplastin Ratio 1.2; Partial Thromboplastin Time 33.6 Seconds (21.0-31.0); Prothrombin Time 12.4 Seconds (9.0-12.0)
[2019-09-02 12:32] LABS: Alanine Aminotransferase 15 U/L (12-78); Albumin Globulin Ratio 0.6 (0.9-2); Alkaline Phosphatase 171 U/L (45-117); Aspartate Aminotransferase 14 U/L (15-37); BUN Creatinine Ratio 12.5 (10-20); Beta-Hydroxybutyrate 26.13 mg/dl (0.2-2.81); Bilirubin,Total 0.3 mg/dl (0.2-1); Blood Urea Nitrogen 13 mg/dl (7-18); Calcium 9.4 mg/dl (8.5-10.1); Carbon Dioxide 28 mmol/L (21-32); Chloride 96 mmol/L (98-107); Est GFR (African American) 72.3; Est GFR (Non-African American) 62.4; Globulin 4.8 gm/dl (2.5-4.0); Glucose 460 mg/dl (70-99); Magnesium 2.1 mg/dl (1.8-2.4); Potassium 3.5 mmol/L (3.5-5.1); Sodium 132 mmol/L (136-145); Total Protein 7.8 gm/dl (6.4-8.2)
[2019-09-02 12:37] LABS: Troponin I < 0.015 ng/ml (0-0.045)
[2019-09-02] MEDS ORDERED: SODIUM CHLORIDE 0.9% 1000ML 500 ML IV ONE (12:43)
[2019-09-02] MEDS ORDERED: NovoLIN-R INSULIN PER UNIT CHARGE IV STA (12:43)
[2019-09-02 12:56] LABS: Appearance Urine Cloudy (Clear); Bilirubin Urine Negative (Negative); Blood Urine Negative (Negative); Color Urine Yellow; Glucose Urine UA 3+ (Negative); Leukocyte Esterase Urine Negative (Negative); Nitrite Urine Negative (Negative); Protein Urine 1+ (Negative); Specific Gravity Urine 1.039 (1.000-1.030); Urobilinogen Urine Negative (Negative); pH Urine 5.5 (4.5-7.5)
[2019-09-02 13:09] LABS: Ketones Urine 3+ (Negative)
[2019-09-02 13:14] LABS: RBC Urine Automated >30 /hpf (0-4)
[2019-09-02 13:16] LABS: Bacteria Urine Automated 1+ (Negative)
--- NOTE | 2019-09-02 13:26 | XRay Report ---
XR chest 1V portable CLINICAL HISTORY: weakness dyspnea COMPARISON STUDY: 08/18/2018 FINDINGS: Moderate cardiomegaly. Lungs are clear. Diaphragms are smooth. Minimal platelike atelectasi s left base. IMPRESSION: Moderate cardiomegaly. Otherwise negative study. ACT 112: Negative or not required by law. The above report was generated using voice recognition software. It may contain grammatical, syntax or spelling errors. Electronically signed by: John Santillan M.D. 09/02/2019 1:25 PM
--- NOTE | 2019-09-02 16:30 | History & Physical Report ---
Date of Service September 02, 2019 Assessment & Plan (1) Hyperglycemia: Admit to PCU on telemetry Continue monitoring blood sugars which are already improving. This is a new onset of diabetes mellitus. Glycemic control per pharmacy. telehealth nurse educator. Start with sliding scale insulin Then transition to p.o. if appropriate depending on patient's A1c. If A1c is higher than 10 would recommend to continue with insulin. Patient may be at risk of complications with glycemic control, because of his age and encephalopathy. He will need close monitoring while in his personal correction. DVT prophylaxis SCDs and teds. Full code Present on Admission?: Yes (2) Hypertension: Blood pressure elevated in the ER because patient did not take his medicine this morning. Continue hydralazine 10 mg 3 times daily. Continue amlodipine 10 mg p.o. every morning Continue torsemide 20 mg p.o. as directed. Present on Admission?: Yes (3) Hyponatremia: Restrict free water intake to 1500 mils. Continue monitoring sodium Present on Admission?: Yes (4) Encephalopathy: Continue monitoring sodium. Restrict free water intake to 1500 mils. Present on Admission?: Yes (5) H/O blepharoplasty: Continue instructions given by the RN and patient's internal audit director office. Use warm compresses to the right eye as needed. Use eye ointment erythromycin or [place] 4 times daily. Present on Admission?: Yes History of Present Illness Chief Complaint: Polydipsia, polyuria polyphagia Primary Care Provider: [facility] The patient is a 89 years old male with past medical history of hypertension, previous stroke, COPD, encephalopathy, who presents to the emergency room with a complaint of intermittent confusion started 4 days ago. The patient states that he has been really thirsty recently and states that he has been drinking water by the [employer]. Patient states that he 3 drinks 32 ounces of water at a time. Patient also reports that he urinates more frequently. Patient daughter states that patient had right eye surgery related to his lower eyelid last week, and that appears to be bloody. Patient states that patient nurse practitioner who sees him once a month at [facility] stated that he has a high sugar. Patient denies fever, chills, chest pain, shortness of breath, abdominal pain, frequency, urgency, nausea or vomiting. EKG is reviewed and shows normal sinus rhythm. There there is a Q wave in inferior leads possibly due to inferior infarction in the past. Labs are reviewed: WBC 6.22, hemoglobin 13.2, hematocrit 37.2, platelets 278, PT 12.4, INR 1.2, APTT 33.6, VBG 7.43, PCO2 44, PO2 35, HCO3 29 O2 saturation 65. Blood glucose on arrival was 500 and then decreased to 401--> 290. Sodium 132, potassium 3.5, chloride 96, carbon dioxide 28, anion gap 9, BUN 13, creatinine 1.06, GFR 62.4, calcium 9.4, magnesium 2.1, bilirubin 0.3, AST 14, ALT 15, alkaline phosphatase 171, troponin 0.015, BNP 114, beta hydroxybutyrate acid is 26.13 TSH 1.45. Urine is cloudy with specific gravity 1.0 39, negative blood negative leukocyte esterase, normal white blood cells, over 30 RBCs, some epithelial cells 5-10 and urine bacteria 1+. Chest x-ray shows moderate cardiomegaly. Otherwise negative study. Decision was made to admit patient for hyperglycemia and further monitoring of it to PCU on telemetry. Allergies Allergy/AdvReac Type Severity Reaction Status Date / Time cephalexin Allergy Intermediate RASH Verified 09/02/19 13:28 doxycycline Allergy Intermediate RASH Verified 09/02/19 13:28 propranolol Allergy Mild BRADYCARDIA Verified 09/02/19 13:28 hydrochlorothiazide Allergy Unknown Unknown Verified 09/02/19 13:28 sulfamethoxazole AdvReac Intermediate hyperkalemi Verified 09/02/19 13:28 [From Bactrim] a trimethoprim [From Bactrim] AdvReac Intermediate hyperkalemi Verified 09/02/19 13:28 a Home Medications Home Medications Medication Instructions Recorded Confirmed Type Probiotic 1 tab PO QAM 06/28/18 09/02/19 History clopidogrel 75 mg PO 3XWK 06/28/18 09/02/19 History docusate sodium [Colace] 100 mg PO QAM 06/28/18 09/02/19 History dutasteride [Avodart] 0.5 mg PO QAM 06/28/18 09/02/19 History levothyroxine 75 mcg PO QAM 06/28/18 09/02/19 History pravastatin 20 mg PO HS 06/28/18 09/02/19 History primidone 1.5 tab PO BID 06/28/18 09/02/19 History Brovana 15 mcg INHALATION BID 08/13/18 09/02/19 History PreserVision AREDS-2 1 tab PO BID 08/13/18 09/02/19 History amlodipine [Norvasc] 10 mg PO QAM 08/13/18 09/02/19 History betamethasone dipropionate 1 applic TOPICAL BID 08/13/18 09/02/19 History budesonide 2 ml INHALATION BID 08/13/18 09/02/19 History cholecalciferol (vitamin D3) 5,000 unit PO QAM 08/13/18 09/02/19 History [Vitamin D3] clotrimazole 1 applic TOPICAL BID 08/13/18 09/02/19 History oxycodone-acetaminophen [Percocet] 1 tab PO Q4 PRN 08/13/18 09/02/19 History sennosides [senna] 8.6 mg PO QAM 12/09/18 09/02/19 History torsemide 20 mg PO DIRECTED 12/09/18 09/02/19 History tamsulosin 0.4 mg capsule 0.4 mg PO HS #90 cap 05/13/19 09/02/19 Rx acetaminophen 325 mg PO QID PRN 09/02/19 09/02/19 History erythromycin 1 applic OPR QID 09/02/19 09/02/19 History escitalopram oxalate 5 mg PO QAM 09/02/19 09/02/19 History hydralazine 100 mg PO TID 09/02/19 09/02/19 History psyllium [Reguloid, Sugar Free] 1 tsp PO QAM 09/02/19 09/02/19 History tafluprost (PF) [Zioptan (PF)] 1 drp OPB HS 09/02/19 09/02/19 History white petrolatum-mineral oil 0.25 inch OPHTHALMIC (EYE) PM 09/02/19 09/02/19 History [Soothe Night Time Lubricant] Past Med/Surg History Medical History Bilateral lower extremity edema (Acute) Bladder cancer REASON FOR PROCEDURE BPH (benign prostatic hyperplasia) Carbon monoxide exposure (Acute) Chronic obstructive pulmonary disease STABLE COPD exacerbation Dizziness (Acute) History of tremor Hx of deep venous thrombosis PER RECORDS; PATIENT DENIES Hx of spinal stenosis Hyperlipidemia Hypertension Hyponatremia (Acute) Hypothyroidism Infection due to urethral catheter (Inactive) Leg pain, left (Acute) Obesity Seizure PER RECORDS; PATIENT DENIES Sinusitis (Acute) Sleep apnea CPAP Stasis dermatitis (Acute) Stroke 5+ YEARS AGO PER CHART REVIEW; NO RESIDUAL DEFICITS= ON PLAVIX Surgical History History of bladder surgery History of cataract surgery B/L History of prostate surgery History of surgical procedure on eye proper using laser right eye Hx of knee surgery Hx of toe surgery Family History Other Family history non-contributory No family history of adverse response to anesthesia Social History Preferred Language: Serbian Communication Ability: Effective Visual Impairment: No Limitations Oil 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 Required: No Beliefs That Will Affect Care: None marital status: Current Living Situation: Personal Care Facility Current Living Situation Comment: [facility] current occupational status: retired Other Information That Helps Us Care for You: No Feels Safe at Home: Yes Safety Concerns: Feels Safe At This Time Smoking Status: Former smoker Tobacco Type: cigarettes ; Cigarettes Per Day: QUIT 50+ YEARS AGO ; Smoking End Date: 40 years ago ; Second Hand Exposure: No ; Tobacco Cessation Education Requested by Patient: No Hx Alcohol Use: No Hx Substance Use: No Review of Systems Review of Systems: All systems reviewed & are unremarkable except as noted in HPI & below Physical Exam Constitutional: WD/WN, vitals as above well developed and + obese Eyes: + eyes dysmorphic (Right eye is mildly swollen and bruised.S/p R/Lower eyelid blepharoplasty.) ENMT: external ear and nose normal, oropharynx normal Neck: trachea midline, no thyromegaly Respiratory: normal respiratory effort, lungs clear to auscultation Cardiovascular: Heart Sounds: normal S1 and normal S2 Palpation: + palpable S3 Vessels: dorsalis pedis pulses present Gastrointestinal (Abdomen): normal bowel sounds, soft, nontender, no hepatosplenomegaly Musculoskeletal: no cyanosis or clubbing, extremities motor strength 5/5 Skin: no rashes, warm and dry Neurologic: patellar DTR's 2+ bilat, sensation intact Psychiatric: Insight: + limited insight Lymphatic: no cervical or axillary lymphadenopathy Results & Data Vital Signs (Past 12 Hours) Vital Signs Temp Pulse Pulse Resp BP BP Pulse Ox 09/02/19 14:31 78 20 92 09/02/19 14:30 79 17 212/107 H 93 09/02/19 14:01 81 23 92 09/02/19 14:00 81 18 189/93 H 93 09/02/19 13:47 81 187/86 H 09/02/19 13:32 77 15 98 09/02/19 13:31 76 21 216/103 H 96 09/02/19 13:30 77 18 96 09/02/19 13:01 75 13 91 09/02/19 13:00 76 18 186/84 H 91 09/02/19 12:31 74 17 91 09/02/19 12:30 75 18 178/89 H 91 09/02/19 12:12 78 77 22 173/88 H 90 09/02/19 12:11 77 19 173/88 H 90 09/02/19 12:00 77 22 09/02/19 11:40 80 20 92 09/02/19 11:23 36.6 C 85 18 167/79 H 94 Code Status & VTE Plan Code Status Full code VTE Prophylaxis Plan VTE Prophylaxis will be ordered: Yes PG Care Time/CCT Total # of Minutes Spent Total Time Spent with Patient: Total time spent is greater than 50% in coordination of care (as documented) at patient's floor/unit and/or counseling patient: Coding Level of Care Code 81950 Initial Inpt Care Lvl 3 Diagnoses Hyperglycemia R73.9 Hypertension I10 Hypertension type: unspecified Hyponatremia E87.1 Encephalopathy G93.40 H/O blepharoplasty Z98.890 (1) Hypertension Hypertension type: unspecified Qualified Code(s): I10 - Essential (primary) hypertension
[2019-09-02] MEDS ORDERED: GLUCAGON FOR INJ 1 MG VIAL SQ PRN (17:45)
[2019-09-02] MEDS ORDERED: DEXTROSE 50% 50 ML SYRINGE IV PRN (17:45)
[2019-09-02] MEDS ORDERED: ONDANSETRON INJ 2 MG/ML 2 ML VIAL IV PRN (17:45)
[2019-09-02] MEDS ORDERED: CARBOHYDRATES FOR HYPOGLYCEMIA PO PRN (17:45)
[2019-09-02] MEDS ORDERED: ACETAMINOPHEN 325 MG TAB PO PRN (17:45)
[2019-09-02] MEDS ORDERED: POLYETHYLENE (MIRALAX) 17 GM PACK PO PRN (17:45)
[2019-09-02] MEDS ORDERED: ALUMINUM/MAGNESIUM SUSP 30 ML UDC PO PRN (17:45)
[2019-09-02] MEDS ORDERED: MAGNESIUM HYDROXIDE SUSP 30 ML UDC PO PRN (17:45)
[2019-09-02] MEDS ORDERED: GLUCOSE 10 TABS/TUBE PO PRN (17:45)
[2019-09-02] MEDS ORDERED: OXYCODONE/APAP 7.5/325MG TAB PO PRN (17:45)
[2019-09-02] MEDS ORDERED: GLUCOSE 40% GEL 15 GM TUBE PO PRN (17:45)
[2019-09-02] MEDS ORDERED: PHARMACY GLYCEMIC MGMT CONSULT PRN (18:03)
[2019-09-02] MEDS ORDERED: INSULIN GLARGINE SOLOSTAR 100 UNITS/ML 3 ML PEN SC ONE (18:15)
[2019-09-02] MEDS: SODIUM CHLORIDE 0.9% 1000ML 1,000 ML IV SCH (18:36)
[2019-09-02] MEDS: ESCITALOPRAM OXALATE 10 MG TAB PO SCH (18:36)
[2019-09-02] MEDS: DOCUSATE SODIUM 100 MG CAP PO SCH (18:39)
[2019-09-02] MEDS: ERYTHROMYCIN OP OINT 5 MG/GM 3.5 GM TUBE OPR SCH ×2 (18:39→20:30)
[2019-09-02] MEDS: AMLODIPINE BESYLATE 5 MG TAB PO SCH (18:40)
[2019-09-02] MEDS: LEVOTHYROXINE SODIUM 75 MCG TABLET PO SCH (18:41)
[2019-09-02] MEDS: INSULIN ASPART 100 UNITS/ML 3 ML PEN SC SCH ×2 (18:42→20:35)
[2019-09-02] MEDS: FORMOTEROL 20 MCG/2 ML VIAL INH SCH (19:56)
[2019-09-02] MEDS: BUDESONIDE 0.5 MG/2 ML VIAL (PULMICORT) INH SCH (20:00)
--- NOTE | 2019-09-02 20:26 | Pharmacy Report ---
Glycemic Control Consultation - Date of Service September 02, 2019 - Scope Scope: Glycemic Pharmacist consulted by Dr Rojas on 09/02/19 for glycemic control and to write orders per [facility] inpatient glycemic control protocol - Objective Weight: 98.883 kg Accuchecks BSG (last 24hrs): 09/02/19 09/02/19 09/02/19 11:25 11:56 13:20 Glucose 460 H* POC Glucose 454 H* 401 H* 09/02/19 09/02/19 14:25 17:37 Glucose POC Glucose 290 H 379 H* Laboratory Data (last 24hrs): 09/02/19 11:56 Potassium 3.5 Carbon Dioxide 28 Anion Gap 9.0 Creatinine 1.06 Est Cr Clr Drug Dosing Not Reportable Beta-Hydroxybutyric Acd 26.13 H - Recent Pertinent Medications Outpatient Anti-diabetic Regimen: * No prior diagnosis of diabetes * A1c = 6.2 % (08/14/18) * A1c ordered for this admission - Assessment & Plan Assessment & Plan: ASSESSMENT: * RM is an 89 year old male who presented to [facility] ED with confusion and increased thirst * Per ED note - patient had hyperglycemia in the past secondary to prednisone use, but patient has no history of diabetes * BSG in ED was 460 mg/dL - given 6 units of IV regular insulin * Patient ate uncovered lunch in ED * Pharmacy consulted at time of admission around dinnertime * Ordered Lantus 32 units (full weight-based stress of 2 dose) at time of consult for BSG of 379 * Per nursing, patient has poor IV access - will attempt to manage with SC basal/bolus for now PLAN FOR INPATIENT GLYCEMIC CONTROL: * Holding outpatient oral diabetes medications * Basal insulin * Lantus 32 units SC x 1 at 1838 * Will reassess basal insulin in the morning * Bolus insulin * NovoLog per scale ACHS or Q6hrs while NPO * Goal Range: Low 110 mg/dL - High 150 mg/dL * Correction Factor: 20 mg/dL/unit * Nutritional / Prandial insulin per carb ratio of 1 unit per 7 grams CHO consumed * ,04 checks with same parameters * Please note that the plan above was derived based on current level of insulin resistance and hospital stress. These recommendations are appropriate for inpatient admission only. Plan of care upon discharge will need to be reassessed to avoid potential outpatient hypo/hyperglycemia. Thank you.
[2019-09-02] MEDS: PRIMIDONE 250 MG TAB PO SCH (20:28)
[2019-09-02] MEDS: PRAVASTATIN SOD 20 MG TAB PO SCH (20:29)
[2019-09-02] MEDS: TAMSULOSIN HCL 0.4 MG CAP PO SCH (20:29)
[2019-09-02] MEDS: HydrALAZINE TAB 50 MG TAB PO SCH (20:29)
[2019-09-02] MEDS: CLOTRIMAZOLE 1% CR 15 GM TUBE TOP SCH (20:29)
[2019-09-02] MEDS: BETAMETHASONE DIP AUG (DIPROLENE) 0.05% CR 15 GM TUBE EXT SCH (20:30)
[2019-09-03] MEDS: INSULIN ASPART 100 UNITS/ML 3 ML PEN SC SCH ×6 (00:06→21:14)
[2019-09-03] MEDS: SODIUM CHLORIDE 0.9% 1000ML 1,000 ML IV SCH (05:54)
[2019-09-03] MEDS: LEVOTHYROXINE SODIUM 75 MCG TABLET PO SCH (05:55)
[2019-09-03 06:01] LABS: Basophils # (auto) 0.03 K/uL (0-0.2); Basophils % (auto) 0.5 %; Eosinophils # (auto) 0.11 K/uL (0-0.5); Eosinophils % (auto) 1.8 %; Hemoglobin 12.7 g/dL (14.0-18.0); Immature Granulocytes # (auto) 0.02 K/uL (0.00-0.02); Immature Granulocytes % (auto) 0.3 %; Lymphocytes % (auto) 23.1 %; Mean Corpuscular Hemoglobin 32.2 pg (25-34); Mean Corpuscular Hgb Conc 34.3 g/dL (32-36); Mean Corpuscular Volume 93.9 fL (80-100); Mean Platelet Volume 10.8 fL (7.4-10.4); Monocytes # (auto) 0.45 K/uL (0.11-0.59); Monocytes % (auto) 7.4 %; Neutrophils # (auto) 4.05 K/uL (1.4-6.5); Neutrophils % (auto) 66.9 %; Platelet Count 276 K/uL (130-400); RDW Coefficient of Variation 13.4 % (11.5-14.5); RDW Standard Deviation 46.2 fL (36.4-46.3); Red Blood Count 3.94 M/uL (4.7-6.1); White Blood Count 6.06 K/uL (4.8-10.8)
[2019-09-03 06:30] LABS: Albumin Level 2.7 gm/dl (3.4-5.0); BUN Creatinine Ratio 15.2 (10-20); Calcium 8.7 mg/dl (8.5-10.1); Creatinine Clr Calc Pharmacy 71.2 ml/min; Est GFR (African American) 92.9; Est GFR (Non-African American) 80.2; Potassium 3.2 mmol/L (3.5-5.1)
--- NOTE | 2019-09-03 06:30 | Electrocardiogram Report ---
Test Reason : Blood Pressure : / mmHG Vent. Rate : 077 BPM Atrial Rate : 077 BPM P-R Int : 192 ms QRS Dur : 090 ms QT Int : 390 ms P-R-T Axes : 052 031 081 degrees QTc Int : 441 ms Normal sinus rhythm Cannot rule out Inferior infarct , age undetermined Nonspecific T wave abnormality Abnormal ECG When compared with ECG of 18-AUG-2018 10:52, Minimal criteria for Inferior infarct are now Present Confirmed by Glenn Wilhelm ([id number]) on 09/03/2019 6:29:39 AM Referred By: [facility] Confirmed By:Glenn Wilhelm
[2019-09-03 06:32] LABS: Albumin Globulin Ratio 0.6 (0.9-2); Bilirubin,Total 0.2 mg/dl (0.2-1); Globulin 4.2 gm/dl (2.5-4.0); Total Protein 6.9 gm/dl (6.4-8.2)
[2019-09-03 06:53] LABS: Estimated Average Glucose 352 mg/dl; Hemoglobin A1C 13.9 % (4.5-5.6)
[2019-09-03] MEDS: FORMOTEROL 20 MCG/2 ML VIAL INH SCH ×2 (07:16→19:41)
[2019-09-03] MEDS: BUDESONIDE 0.5 MG/2 ML VIAL (PULMICORT) INH SCH ×2 (07:16→19:41)
[2019-09-03] MEDS ORDERED: INSULIN GLARGINE SOLOSTAR 100 UNITS/ML 3 ML PEN SC STA (07:48)
[2019-09-03] MEDS: AMLODIPINE BESYLATE 5 MG TAB PO SCH (08:16)
[2019-09-03] MEDS: HydrALAZINE TAB 50 MG TAB PO SCH ×3 (08:16→21:16)
[2019-09-03] MEDS: DOCUSATE SODIUM 100 MG CAP PO SCH (08:16)
[2019-09-03] MEDS: ESCITALOPRAM OXALATE 10 MG TAB PO SCH (08:16)
[2019-09-03] MEDS: SENNA 8.6 MG TAB PO SCH (08:17)
[2019-09-03] MEDS: PRIMIDONE 250 MG TAB PO SCH ×2 (08:17→16:46)
[2019-09-03] MEDS: CHOLECALCIFEROL 1,000 UNITS 25 MCG TAB PO SCH (08:18)
[2019-09-03] MEDS: LACTOBACILLUS ACIDOPHILUS (FLORANEX) TAB PO SCH (08:18)
[2019-09-03] MEDS: ERYTHROMYCIN OP OINT 5 MG/GM 3.5 GM TUBE OPR SCH ×4 (08:19→21:09)
[2019-09-03] MEDS: BETAMETHASONE DIP AUG (DIPROLENE) 0.05% CR 15 GM TUBE EXT SCH ×2 (08:19→21:20)
[2019-09-03] MEDS: PSYLLIUM 58.6% POWDER PACKET PO SCH (08:21)
[2019-09-03] MEDS: CLOTRIMAZOLE 1% CR 15 GM TUBE TOP SCH ×2 (08:21→21:11)
[2019-09-03] MEDS ORDERED: CEROVITE ADV FORMULA TAB PO SCH (09:00)
[2019-09-03] MEDS: POTASSIUM CHLORIDE / WTR 10 MEQ/100 ML PLCT IV SCH ×3 (10:40→13:05)
--- NOTE | 2019-09-03 11:53 | Hospitalist Progress Note ---
Date of Service September 03, 2019 Assessment & Plan (1) Diabetes: New diagnosis of diabetes mellitus. A1c was 13.9%. - Glycemic control per pharmacy - assistant health educator - On 09/03, sugars are improved. As high as 460 yesterday; now in the high 100s. (2) Hyponatremia: Long history of hyponatremia. Unclear cause. Will hold torsemide and IV fluids and monitor. Will then get urine osms tomorrow to help figure out cause. - Restrict free water intake to 1500 mL/day - Continue monitoring sodium (3) Hypertension: BP as high as 185/85 today. - Continue hydralazine, amlodipine - Will add lisinopril given diabetes and HTN as a kidney protector - Hold torsemide given we are given fluids for dehydration and DKA. (4) H/O blepharoplasty: Surgery done on 09/01 per patient. - Continue instructions given by the RN and patient's apprentice lineman third step office. - Use warm compresses to the right eye as needed. - Use eye ointment erythromycin or [place] 4 times daily. (5) Hypothyroidism: TSH was 1.5 this admission. - Continue home levothyroxine 75 mcg (6) DVT prophylaxis: SCDs - Low DVT risk per admission calculator Subjective Doing well today. No focal complaints. No nausea, appetite ok. Right eye is not painful. Reports no fevers/chills, chest pain, shortness of breath, abdominal pain, nausea, or vomiting. Physical Exam Constitutional: WD/WN, vitals as above Eyes: + eyelid abnormality (Right eye swelling.), + conjunctival abnormality (Right eye.) and EOM intact bilaterally ENMT: external ear and nose normal, oropharynx normal Neck: trachea midline, no thyromegaly normal visual inspection Respiratory: normal respiratory effort, lungs clear to auscultation no respiratory distress Cardiovascular: RRR, no murmur, no edema Gastrointestinal (Abdomen): Inspection/Auscultation: abdomen normal to inspection; abdomen not distended Musculoskeletal: no cyanosis or clubbing, extremities motor strength 5/5 Skin: no rashes, warm and dry Neurologic: moves all extremities and awake Psychiatric: Orientation: alert, oriented to person and cooperative Results & Data Vital Signs (Past 12 Hours) Vital Signs Temp Pulse Pulse Resp BP BP Pulse Ox 09/03/19 11:19 36.7 C 73 20 186/83 H 91 09/03/19 07:49 36.8 C 69 20 169/90 H 91 09/03/19 07:16 68 16 94 09/03/19 03:30 64 14 90 09/03/19 03:21 36.7 C 77 18 129/70 90 PG Care Time/CCT Total # of Minutes Spent Total Time Spent with Patient: Total time spent is greater than 50% in coordination of care (as documented) at patient's floor/unit and/or counseling patient: Coding Level of Care Code 86475 Subseq Hosp Care Lvl 3 Diagnoses Diabetes E11.9 Hyponatremia E87.1 Hypertension I10 Hypertension type: unspecified H/O blepharoplasty Z98.890 Hypothyroidism E03.9 DVT prophylaxis Z29.9 (1) Hypertension Hypertension type: unspecified Qualified Code(s): I10 - Essential (primary) hypertension
[2019-09-03] MEDS: lisinopriL 10 MG TAB PO SCH (13:01)
[2019-09-03] MEDS: POTASSIUM CHLORIDE 20 MEQ TABCR PO SCH ×2 (14:00→21:10)
--- NOTE | 2019-09-03 14:18 | Pharmacy Report ---
Pharmacy Glycemic Short Note 2 - Date of Service September 03, 2019 - Glycemic Short BSG Results (Last 24 hours): 09/02/19 09/02/19 09/02/19 14:25 17:37 20:28 Glucose POC Glucose 290 H 379 H* 303 H* 09/03/19 09/03/19 09/03/19 00:02 04:14 05:29 Glucose 187 H POC Glucose 169 H 190 H 09/03/19 09/03/19 07:10 11:12 Glucose POC Glucose 189 H 266 H ASSESSMENT: * Mr. Scales's BSGs have improved today. Lunch time hyperglycemia likely due to carb heavy breakfast and endogenous insulin resistance. His A1C of 13.9%, FBS >/=126 are both indicative of type II diabetes. He did recently have a prednisone taper. The A1C is most affected by the previous 2 weeks. * Given his advanced age, high A1C, and co morbidities, I hesitate to correct his BSGs too quickly. I feel BSGs in the lower 200s are reasonable and he is unlikely to benefit from tight control which may manifest as hypoglycemia. PLAN FOR INPATIENT GLYCEMIC CONTROL: * Basal insulin * Lantus scale SQ BID, please see MAR for further details * Bolus insulin * NovoLog per scale ACHS or Q6hrs while NPO * Goal Range: Low 110 mg/dL - High 150 mg/dL * Correction Factor: 15 mg/dL/unit * Nutritional / Prandial insulin per carb ratio of 1 unit per 6 grams CHO consumed
[2019-09-03] MEDS ORDERED: ALBUT/IPRATROP 3MG/0.5MG NEB 3 ML VIAL NEB PRN (16:29)
[2019-09-03] MEDS ORDERED: FUROSEMIDE 20 MG in SYRINGE 0 ML IV ONE (16:45)
[2019-09-03] MEDS: PRAVASTATIN SOD 20 MG TAB PO SCH (21:09)
[2019-09-03] MEDS: TAMSULOSIN HCL 0.4 MG CAP PO SCH (21:09)
[2019-09-03] MEDS: LATANOPROST 0.005% OP SOLN 2.5 ML BTL OPB SCH (21:11)
[2019-09-03] MEDS: INSULIN GLARGINE SOLOSTAR 100 UNITS/ML 3 ML PEN SC SCH (21:15)
[2019-09-04] MEDS: LEVOTHYROXINE SODIUM 75 MCG TABLET PO SCH (05:44)
[2019-09-04 07:06] LABS: BUN Creatinine Ratio 16.9 (10-20); Calcium 8.9 mg/dl (8.5-10.1); Creatinine Clr Calc Pharmacy 66.9 ml/min; Est GFR (African American) 91.1; Est GFR (Non-African American) 78.6; Potassium 3.7 mmol/L (3.5-5.1)
[2019-09-04] MEDS: FORMOTEROL 20 MCG/2 ML VIAL INH SCH ×2 (07:25→19:18)
[2019-09-04] MEDS: BUDESONIDE 0.5 MG/2 ML VIAL (PULMICORT) INH SCH ×2 (07:25→19:18)
[2019-09-04] MEDS: LACTOBACILLUS ACIDOPHILUS (FLORANEX) TAB PO SCH (08:01)
[2019-09-04] MEDS: INSULIN ASPART 100 UNITS/ML 3 ML PEN SC SCH ×4 (08:01→21:16)
[2019-09-04] MEDS: CEROVITE ADV FORMULA TAB PO SCH (08:01)
[2019-09-04] MEDS: SENNA 8.6 MG TAB PO SCH (08:01)
[2019-09-04] MEDS: CHOLECALCIFEROL 1,000 UNITS 25 MCG TAB PO SCH (08:02)
[2019-09-04] MEDS: PSYLLIUM 58.6% POWDER PACKET PO SCH (08:02)
[2019-09-04] MEDS: lisinopriL 10 MG TAB PO SCH (08:02)
[2019-09-04] MEDS: POTASSIUM CHLORIDE 20 MEQ TABCR PO SCH (08:02)
[2019-09-04] MEDS: AMLODIPINE BESYLATE 5 MG TAB PO SCH (08:02)
[2019-09-04] MEDS: HydrALAZINE TAB 50 MG TAB PO SCH ×3 (08:02→21:12)
[2019-09-04] MEDS: PRIMIDONE 250 MG TAB PO SCH ×2 (08:02→17:03)
[2019-09-04] MEDS: CLOTRIMAZOLE 1% CR 15 GM TUBE TOP SCH ×2 (08:03→21:13)
[2019-09-04] MEDS: BETAMETHASONE DIP AUG (DIPROLENE) 0.05% CR 15 GM TUBE EXT SCH ×2 (08:03→21:14)
[2019-09-04] MEDS: ERYTHROMYCIN OP OINT 5 MG/GM 3.5 GM TUBE OPR SCH ×4 (08:03→21:12)
[2019-09-04] MEDS: ESCITALOPRAM OXALATE 10 MG TAB PO SCH (08:03)
[2019-09-04] MEDS: DOCUSATE SODIUM 100 MG CAP PO SCH (08:03)
[2019-09-04] MEDS: INSULIN GLARGINE SOLOSTAR 100 UNITS/ML 3 ML PEN SC SCH (08:04)
--- NOTE | 2019-09-04 11:37 | Hospitalist Progress Note ---
Date of Service September 04, 2019 Assessment & Plan (1) Diabetes: New diagnosis of diabetes mellitus. A1c was 13.9%. 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 Pharmacy is slowing tightening carb coverage, but going slower to prevent hypoglycemia which is probably a bigger concern given his age. Will work with the mobile home mechanic tomorrow. - Spoke with daughter Alondra on 09/03. He lives at [facility] and therefore would have nursing staff check blood sugars & administer insulin. This is a big relief. Will give pharmacy another day to find good discharge regimen, then likely can discharge tomorrow. Will get PT/OT to ensure he is safe to go home. (2) Hyponatremia: Long history of hyponatremia. On 08/14/2019 & 08/17/2019, he had sodiums of 125-128 with urine osms of 460 & 360. 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 - Restrict free water intake to 1500 mL/day - Will hold torsemide and IV fluids and monitor. - Will then get urine osms tomorrow to help figure out cause. He is running low-normal at present, so will likely be adequate to just use conservative measures. (3) Hypertension: BP is 145/75 today. - Continue hydralazine, amlodipine - Added lisinopril on 09/03 given diabetes and HTN as a kidney protector - Hold home torsemide given hyponatremia. (4) H/O blepharoplasty: Right side. Surgery done on 09/01. - Continue instructions given by the RN and patient's gta office. - Use warm compresses to the right eye as needed. - Use erythromycin ointment in right eye 4 times daily. (5) Hypothyroidism: TSH was 1.5 this admission. - Continue home levothyroxine 75 mcg (6) Chronic obstructive pulmonary disease: Had some wheezing on 09/03, but no increased shortness of breath or sputum production. Feels well on 09/04. No shortness of breath. - Continue home inhalers - DuoNebs PRN (7) Glaucoma: Patient's eye drop is non-formulary, so we switched to a similar formulary medication. - Continue latanoprost in both eyes each evening. (8) Stroke: History of stroke ~5 years ago. Held Plavix 1 week before surgery, but told to restart after. - Continue Plavix 3x/wk per home regimen (9) Tobacco abuse disorder: Per daughter he chews snuff and swallows the juice. Has had nausea with nicotine patch, so will not use that. - Monitor (10) DVT prophylaxis: SCDs - Low DVT risk per admission calculator Subjective Feels quite well today. No major complaints overall. He is feeling much better than when he was admitted. Reports no fevers/chills, chest pain, shortness of breath, abdominal pain, nausea, or vomiting. Physical Exam Constitutional: WD/WN, vitals as above Eyes: + eyelid abnormality (Right eye swelling.), + conjunctival abnormality (Right eye.) and EOM intact bilaterally ENMT: external ear and nose normal, oropharynx normal Neck: trachea midline, no thyromegaly normal visual inspection Respiratory: normal respiratory effort, lungs clear to auscultation no respiratory distress Cardiovascular: RRR, no murmur, no edema Gastrointestinal (Abdomen): Inspection/Auscultation: abdomen normal to inspection; abdomen not distended Musculoskeletal: no cyanosis or clubbing, extremities motor strength 5/5 Skin: no rashes, warm and dry Neurologic: moves all extremities and awake Psychiatric: Orientation: alert, oriented to person and cooperative Results & Data Vital Signs (Past 12 Hours) Vital Signs Temp Pulse Pulse Resp BP Pulse Ox Pulse Ox 09/04/19 09:30 93 09/04/19 07:05 36.8 C 66 16 146/74 H 96 09/04/19 04:01 36.7 C 73 18 150/78 H 94 09/04/19 00:00 67 PG Care Time/CCT Total # of Minutes Spent Total Time Spent with Patient: Total time spent is greater than 50% in coordination of care (as documented) at patient's floor/unit and/or counseling patient: Coding Level of Care Code 50025 Subseq Hosp Care Lvl 3 Diagnoses Diabetes E11.9 Hyponatremia E87.1 Hypertension I10 Hypertension type: unspecified H/O blepharoplasty Z98.890 Hypothyroidism E03.9 Chronic obstructive pulmonary disease J44.9 Glaucoma H40.9 Stroke I63.9 CVA mechanism: unspecified Tobacco abuse disorder Z72.0 DVT prophylaxis Z29.9 (1) Hypertension Hypertension type: unspecified Qualified Code(s): I10 - Essential (primary) hypertension (2) Stroke CVA mechanism: unspecified Qualified Code(s): I63.9 - Cerebral infarction, unspecified
[2019-09-04] MEDS ORDERED: INSULIN GLARGINE SOLOSTAR 100 UNITS/ML 3 ML PEN SC STA (16:57)
[2019-09-04] MEDS: PRAVASTATIN SOD 20 MG TAB PO SCH (21:13)
[2019-09-04] MEDS: TAMSULOSIN HCL 0.4 MG CAP PO SCH (21:14)
[2019-09-04] MEDS: LATANOPROST 0.005% OP SOLN 2.5 ML BTL OPB SCH (21:15)
[2019-09-05] MEDS: INSULIN ASPART 100 UNITS/ML 3 ML PEN SC SCH ×4 (00:42→11:48)
[2019-09-05] MEDS: LEVOTHYROXINE SODIUM 75 MCG TABLET PO SCH (05:49)
[2019-09-05] MEDS: BUDESONIDE 0.5 MG/2 ML VIAL (PULMICORT) INH SCH (07:00)
[2019-09-05] MEDS: FORMOTEROL 20 MCG/2 ML VIAL INH SCH (07:00)
[2019-09-05 07:01] LABS: BUN Creatinine Ratio 14.2 (10-20); Calcium 9.1 mg/dl (8.5-10.1); Creatinine Clr Calc Pharmacy 69.6 ml/min; Est GFR (African American) 92.4; Est GFR (Non-African American) 79.8; Potassium 3.7 mmol/L (3.5-5.1)
[2019-09-05] MEDS: CEROVITE ADV FORMULA TAB PO SCH (07:48)
[2019-09-05] MEDS: LACTOBACILLUS ACIDOPHILUS (FLORANEX) TAB PO SCH (07:48)
[2019-09-05] MEDS: CHOLECALCIFEROL 1,000 UNITS 25 MCG TAB PO SCH (07:48)
[2019-09-05] MEDS: DOCUSATE SODIUM 100 MG CAP PO SCH (07:48)
[2019-09-05] MEDS: AMLODIPINE BESYLATE 5 MG TAB PO SCH (07:49)
[2019-09-05] MEDS: lisinopriL 10 MG TAB PO SCH (07:49)
[2019-09-05] MEDS: HydrALAZINE TAB 50 MG TAB PO SCH ×2 (07:49→13:22)
[2019-09-05] MEDS: PSYLLIUM 58.6% POWDER PACKET PO SCH (07:49)
[2019-09-05] MEDS: SENNA 8.6 MG TAB PO SCH (07:49)
[2019-09-05] MEDS: PRIMIDONE 250 MG TAB PO SCH (07:50)
[2019-09-05] MEDS: ERYTHROMYCIN OP OINT 5 MG/GM 3.5 GM TUBE OPR SCH ×2 (07:50→13:22)
[2019-09-05] MEDS: ESCITALOPRAM OXALATE 10 MG TAB PO SCH (07:51)
[2019-09-05] MEDS: BETAMETHASONE DIP AUG (DIPROLENE) 0.05% CR 15 GM TUBE EXT SCH (07:51)
[2019-09-05] MEDS: CLOTRIMAZOLE 1% CR 15 GM TUBE TOP SCH (07:52)
[2019-09-05] MEDS: INSULIN GLARGINE SOLOSTAR 100 UNITS/ML 3 ML PEN SC SCH (08:00)
[2019-09-05] MEDS ORDERED: TORSEMIDE 10 MG TAB PO SCH (08:00)
[2019-09-05] MEDS ORDERED: INSULIN GLARGINE SOLOSTAR 100 UNITS/ML 3 ML PEN SC STA (08:04)
[2019-09-05] MEDS ORDERED: CLOPIDOGREL BISULFATE 75 MG TAB PO SCH (09:00)
--- NOTE | 2019-09-05 12:28 | Pharmacy Report ---
Pharmacy Glycemic Short Note 2 - Date of Service September 05, 2019 - Glycemic Short BSG Results (Last 24 hours): 09/04/19 09/04/19 09/04/19 16:16 16:17 20:51 Glucose POC Glucose 350 H* 346 H* 206 H 09/05/19 09/05/19 09/05/19 00:28 04:14 05:40 Glucose 123 H POC Glucose 119 H 140 H 09/05/19 09/05/19 07:27 11:30 Glucose POC Glucose 157 H 262 H Discharge Recommendations: Given Mr. Scales's advanced age and co-morbidities he is unlikely to benefit from extremely tight glycemic management. BSGs in the 200s reasonable. I would want to avoid rapid correction of his A1C or hypoglycemia * Recommend lantus 45u QAM * Novolog 10u TIDM
[2019-09-05] MEDS ORDERED: TORSEMIDE 20 MG TAB PO SCH (14:30)
[2019-09-06] MEDS ORDERED: INSULIN GLARGINE SOLOSTAR 100 UNITS/ML 3 ML PEN SC SCH (09:00)
--- NOTE | 2019-09-12 00:03 | Discharge Summary ---
Date of Service September 05, 2019 Admission HPI Per Admitting Provider The patient is a 89 years old male with past medical history of hypertension, previous stroke, COPD, encephalopathy, who presents to the emergency room with a complaint of intermittent confusion started 4 days ago. The patient states that he has been really thirsty recently and states that he has been drinking water by the [employer]. Patient states that he 3 drinks 32 ounces of water at a time. Patient also reports that he urinates more frequently. Patient daughter states that patient had right eye surgery related to his lower eyelid last week, and that appears to be bloody. Patient states that patient nurse practitioner who sees him once a month at [facility] stated that he has a high sugar. Patient denies fever, chills, chest pain, shortness of breath, abdominal pain, frequency, urgency, nausea or vomiting. EKG is reviewed and shows normal sinus rhythm. There there is a Q wave in inferior leads possibly due to inferior infarction in the past. Labs are reviewed: WBC 6.22, hemoglobin 13.2, hematocrit 37.2, platelets 278, PT 12.4, INR 1.2, APTT 33.6, VBG 7.43, PCO2 44, PO2 35, HCO3 29 O2 saturation 65. Blood glucose on arrival was 500 and then decreased to 401--> 290. Sodium 132, potassium 3.5, chloride 96, carbon dioxide 28, anion gap 9, BUN 13, creatinine 1.06, GFR 62.4, calcium 9.4, magnesium 2.1, bilirubin 0.3, AST 14, ALT 15, alkaline phosphatase 171, troponin 0.015, BNP 114, beta hydroxybutyrate acid is 26.13 TSH 1.45. Urine is cloudy with specific gravity 1.0 39, negative blood negative leukocyte esterase, normal white blood cells, over 30 RBCs, some epithelial cells 5-10 and urine bacteria 1+. Chest x- ray shows moderate cardiomegaly. Otherwise negative study. Decision was made to admit patient for hyperglycemia and further monitoring of it to PCU on t elemetry. Principal Diagnosis new diagnosis of diabetes Discharge Exam Constitutional: WD/WN, vitals as above Eyes: normak eyelid and EOM intact bilaterally ENMT: external ear and nose normal, oropharynx normal Neck: trachea midline, no thyromegaly normal visual inspection Respiratory: normal respiratory effort, lungs clear to auscultation no respiratory distress Cardiovascular: RRR, no murmur, no edema Gastrointestinal (Abdomen): Inspection/Auscultation: abdomen normal to inspection; abdomen not distended Musculoskeletal: no cyanosis or clubbing, extremities motor strength 5/5 Skin: no rashes, warm and dry Neurologic: moves all extremities and awake Psychiatric: Orientation: alert, oriented to person and cooperative Discharge Data Allergies Allergy/AdvReac Type Severity Reaction Status Date / Time cephalexin Allergy Intermediate RASH Verified 09/08/19 09:57 doxycycline Allergy Intermediate RASH Verified 09/08/19 09:57 propranolol Allergy Mild BRADYCARDIA Verified 09/08/19 09:57 hydrochlorothiazide Allergy Unknown Unknown Verified 09/08/19 09:57 sulfamethoxazole AdvReac Intermediate hyperkalemi Verified 09/08/19 09:57 [From Bactrim] a trimethoprim [From Bactrim] AdvReac Intermediate hyperkalemi Verified 09/08/19 09:57 a Consultations 09/02/19 14:57 ED Decision to Admit Stat Hospital Course (1) Diabetes: New diagnosis of diabetes mellitus. A1c was 13.9%. - Glycemic control per pharmacy - early childhood educator aide - On 09/04, sugars are improving, but his BSs are still getting over 200. Pharmacy is slowing tightening carb coverage, but going slower to prevent hypoglycemia which is probably a bigger concern given his age. Will work with the coding educator tomorrow. - Spoke with daughter Alondra on 09/03. He lives at [facility] and therefore would have nursing staff check blood sugars & administer insulin. This is a big relief. obtained good discharge regimen, which is noted on discharge. (2) Hyponatremia: Long history of hyponatremia. On 08/14/2019 & 08/17/2019, he had sodiums of 125-128 with urine osms of 460 & 360. 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 - Restrict free water intake to 1500 mL/day - held torsemide during admission and IV fluids and monitor. (3) Hypertension: BP is 145/75 today. - Continue hydralazine, amlodipine - Added lisinopril on 09/03 given diabetes and HTN as a kidney protector - Held home torsemide given hyponatremia. As this improved, will resume at discharge. (4) H/O blepharoplasty: Right side. Surgery done on 09/01. - Continue instructions given by the RN and patient's high worker office. - Use warm compresses to the right eye as needed. - Use erythromycin ointment in right eye 4 times daily. (5) Hypothyroidism: TSH was 1.5 this admission. - Continue home levothyroxine 75 mcg (6) Chronic obstructive pulmonary disease: Had some wheezing on 09/03, but no increased shortness of breath or sputum production. Feels well on 09/04. No shortness of breath. - Continue home inhalers - DuoNebs PRN (7) Glaucoma: Patient's eye drop is non-formulary, so we switched to a similar formulary medication. - Continue latanoprost in both eyes each evening. (8) Stroke: History of stroke ~5 years ago. Held Plavix 1 week before surgery, but told to restart after. - Continue Plavix 3x/wk per home regimen (9) Tobacco abuse disorder: Per daughter he chews snuff and swallows the juice. Has had nausea with nicotine patch, so will not use that. - Monitor (10) DVT prophylaxis: SCDs - Low DVT risk per admission calculator Total Time Total Time Spent Total Time Spent (In Minutes): 32 Discharge Plan Discharge Items Patient Disposition: Personal Assisted Reason For Visit: HYPERGLYCEMIA Discharge Diagnosis: hyperglycemia Activity: Resume your previous activity Non-emergency contact: Primary Care Provider Call non-emergency contact if: you have any medication questions Follow-up/Referrals: RONNIE POLLOCK HUSEYIN [Primary Care Provider] - Diet: Carb Consistent or DM2 Fluids: 1500ml (6 cups) Addtl Attending Provider Instructions: You have been hospitalized for an acute medical problem: uncontrolled blood sugars. During your stay at [facility], we have made an effort to correct the problem that brought you to the hospital while keeping you as comfortable as possible. Medications were used to bring your condition under control and your discharge instructions will include directions for any medications you should take after leaving the hospital. Please make sure you see your Primary Care Provider as part of your follow up plan. Recommend followup with PCP to recheck BMP and blood sugars in 1 week. Pending Studies at Discharge: No Stand-Alone Forms: My [facility] [employer], Smoking Cessation Medications and DC Order Prescriptions: New Lantus Solostar U-100 Insulin 100 unit/mL (3 mL) Insulin Pen 45 unit SC QAM Qty: 9 RF: 0 (DME) lancets [OneTouch Delica Plus Lancet] 30 gauge misc See Rx Instructions .ROUTE .MEDSUPPLY Qty: 100 RF: 0 (DME) blood-glucose meter [OneTouch Ultra2 Meter] Kit See Rx Instructions .ROUTE .MEDSUPPLY Qty: 1 RF: 0 (DME) OneTouch Ultra Blue Test Strip Strip See Rx Instructions .ROUTE .MEDSUPPLY Qty: 100 RF: 0 insulin aspart U-100 [Novolog U-100 Insulin aspart] 100 unit/mL solution 10 units SQ TID Qty: 10 RF: 0 Continued tamsulosin 0.4 mg capsule 0.4 mg PO HS Qty: 90 RF: 1 clopidogrel 75 mg Tablet 75 mg PO 3XWK RF: 0 levothyroxine 75 mcg Tablet 75 mcg PO QAM RF: 0 pravastatin 20 mg Tablet 20 mg PO HS RF: 0 primidone 250 mg Tablet 1.5 tab PO BID RF: 0 Probiotic 3 billion cell Capsule 1 tab PO QAM RF: 0 docusate sodium [Colace] 100 mg Capsule 100 mg PO QAM RF: 0 dutasteride [Avodart] 0.5 mg Capsule 0.5 mg PO QAM RF: 0 amlodipine [Norvasc] 5 mg tablet 10 mg PO QAM RF: 0 betamethasone dipropionate 0.05 % Cream 1 applic TOPICAL BID RF: 0 budesonide 0.5 mg/2 mL Suspension For Nebulization 2 ml INHALATION BID RF: 0 oxycodone-acetaminophen [Percocet] 7.5-325 mg Tablet 1 tab PO Q4 PRN (Reason: Pain) RF: 0 clotrimazole 1 % Cream 1 applic TOPICAL BID RF: 0 Brovana 15 mcg/2 mL Solution For Nebulization 15 mcg INHALATION BID RF: 0 cholecalciferol (vitamin D3) [Vitamin D3] 5,000 unit Tablet 5,000 unit PO QAM RF: 0 PreserVision AREDS-2 [id number] Capsule 1 tab PO BID RF: 0 sennosides [senna] 8.6 mg Tablet 8.6 mg PO QAM RF: 0 torsemide 20 mg tablet 20 mg PO DIRECTED RF: 0 acetaminophen 325 mg Tablet 325 mg PO QID PRN (Reason: Pain) RF: 0 Reguloid, Sugar Free Powder 1 tsp PO QAM RF: 0 hydralazine 100 mg tablet 100 mg PO TID RF: 0 erythromycin 5 mg/gram (0.5 %) ointment 1 applic OPR QID RF: 0 escitalopram oxalate 5 mg tablet 5 mg PO QAM RF: 0 Soothe Night Time Lubricant 80-20 % Ointment 0.25 inch OPHTHALMIC (EYE) PM RF: 0 Zioptan (PF) 0.0015 % dropperette 1 drp OPB HS RF: 0 Discharge Orders: Discharge Order (Routine); Ordered 09/05/19 Ordered By: Darrian Elena/Other Patient Handouts: Hyperglycemia, Diabetes Resources, Insulin Injected, Diabetes Healthy Meals, Diabetes Carbs, Diabetes Keep Feet Healthy, Diabetes Manage A1C Test, Diabetes Meal Planning, Diabetes Carbs Fats Protein, Diabetes Type 1 Admission Data Admit Date/Time: 09/02/19 16:27 Attending Provider: Darrian Tolbert Admit Provider: Carly Rojas Primary Care Provider: RONNIE POLLOCK HUSEYIN Other Interventions: Discharge Summary Assessment (RN) Last Done: 09/05/19 14:47 DC Date/Time DO NOT enter until pt leaves facility: 09/05/19 15:42 Coding Level of Care Code 68036 OBS Care - Discharge Diagnoses Diabetes E11.9 Hyponatremia E87.1 Hypertension I10 Hypertension type: unspecified H/O blepharoplasty Z98.890 Hypothyroidism E03.9 Chronic obstructive pulmonary disease J44.9 Glaucoma H40.9 Stroke I63.9 CVA mechanism: unspecified Tobacco abuse disorder Z72.0 DVT prophylaxis Z29.9 Time Spent (min) 32
== END 2019-09-05 15:42 | disposition home or self-care (01) | DRG 638 ==
LOC: ED 11:18 → INTOOBSV 16:27 → 2S 16:27 → SUATTDRO 16:27 → 2S 17:19

== ENCOUNTER 2020-09-24 20:34 | Observation (INO) ==
--- NOTE | 2020-09-24 21:14 | Emergency Department Note ---
History of Present Illness General Chief complaint: Knee Injury/Pain Stated complaint: MIKALID, R KNEE PAIN Time Seen by Provider: 09/24/20 20:46 Source: patient and family (Daughter who I talked on the phone) Mode of arrival: EMS Limitations: no limitations History of Present Illness Maximum Pain Intensity: 10 This patient is a 89-year-old white male who comes in complaint of right knee pain. 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 He has been having pain for about a week he said yesterday was okay but got worse today. No fever chills he cannot put any weight on it and it junito. No chest pain or shortness of breath he does have COPD and his breathing is been no different he had no Covid exposure and has had the complete Covid vaccine series. The other concern was he was saying the pain was so bad he wanted to kill himself. He did not try he has no plan and he does live in a half-way where they monitor his medications. I did talk to his daughter Alondra on the phone. She was concerned as he was screaming in pain tonight and she says that ever since having a stroke 8 years ago he is a low pain tolerance. He was supposed to see Dr. Garcia tomorrow but due to the weather it got postponed till . She was concerned when she talks on the phone he said "I am just going to end it". He is also in the process of bereavement as his on and the is scheduled for Thursday. They did go to his room and search it for any potential weapons or ways that he could hurt himself. Home Medications Medication Instructions Recorded Confirmed Type clopidogrel 75 mg PO 3XWK 06/28/18 09/24/20 History dutasteride [Avodart] 0.5 mg PO QAM 06/28/18 09/24/20 History amlodipine [Norvasc] 10 mg PO QAM 08/13/18 09/24/20 History budesonide 2 ml INHALATION BID 08/13/18 09/24/20 History escitalopram oxalate 5 mg PO QAM 09/02/19 09/24/20 History hydralazine 100 mg PO TID 09/02/19 09/24/20 History OneTouch Ultra Blue Test Strip #100 ea 09/05/19 09/21/20 Rx blood-glucose meter [OneTouch #1 ea 09/05/19 09/21/20 Rx Ultra2 Meter] lancets [OneTouch Delica Plus #100 ea 09/05/19 09/21/20 Rx Lancet] betamethasone dipropionate 0.05 % 1 applic TOPICAL BID #45 gm 07/20/20 09/24/20 Rx topical cream Brovana 2 ml INHALATION BID 08/07/20 09/24/20 History Lactobacillus acidophilus 175 mg PO DAILY 08/07/20 09/24/20 History [Acidophilus] Lantus U-100 Insulin 25 unit SUBCUT BID 08/07/20 09/24/20 History PreserVision AREDS-2 1 tab PO BID 08/07/20 09/24/20 History Zioptan (PF) 1 drp OPB HS 08/07/20 09/24/20 History acetaminophen 650 mg PO QID PRN MDD 3g 08/07/20 09/24/20 History albuterol sulfate 2.5 mg INHALATION Q6 PRN 08/07/20 09/24/20 History docusate sodium [Stool Softener] 100 mg PO DAILY 08/07/20 09/24/20 History levothyroxine 75 mcg PO DAILY 08/07/20 09/24/20 History polyethylene glycol 3350 17 g PO DAILY 08/07/20 09/24/20 History pravastatin 20 mg PO HS 08/07/20 09/24/20 History primidone 375 mg PO BID 08/07/20 09/24/20 History sennosides [senna] 8.6 mg PO BID 08/07/20 09/24/20 History spironolactone 25 mg PO QAM #30 tab 08/13/20 09/24/20 Rx benzonatate 200 mg PO Q8 PRN 09/21/20 09/24/20 History lidocaine 1 patch TOP DAILY PRN #15 ea 09/21/20 09/24/20 Rx oxycodone [Roxicodone] 2.5 mg PO Q8H PRN #3 tab 09/21/20 09/24/20 Rx polyvinyl alcohol-povidon(PF) 1 drp OPB QID PRN 09/21/20 09/24/20 History [Refresh Classic (PF)] tamsulosin 0.4 mg PO HS 09/21/20 09/24/20 History torsemide 20 mg PO Q OTHER DAY 09/21/20 09/24/20 History Allergies Allergy/AdvReac Type Severity Reaction Status Date / Time cephalexin Allergy Intermediate RASH Verified 09/21/20 21:19 doxycycline Allergy Intermediate RASH Verified 09/21/20 21:19 propranolol Allergy Mild BRADYCARDIA Verified 09/21/20 21:19 hydrochlorothiazide Allergy Unknown Unknown Verified 09/21/20 21:19 sulfamethoxazole AdvReac Intermediate hyperkalemi Verified 09/21/20 21:19 [From Bactrim] a trimethoprim [From Bactrim] AdvReac Intermediate hyperkalemi Verified 09/21/20 21:19 a Past Med/Surg History Medical History Bilateral lower extremity edema Bladder cancer REASON FOR PROCEDURE BPH (benign prostatic hyperplasia) Carbon monoxide exposure Chronic obstructive pulmonary disease STABLE CKD (chronic kidney disease) COPD exacerbation Dizziness History of tremor Hx of deep venous thrombosis PER RECORDS; PATIENT DENIES Hx of spinal stenosis Hyperlipidemia Hypertension Hyponatremia Hypothyroidism Infection due to urethral catheter Leg pain, left Obesity Seizure PER RECORDS; PATIENT DENIES Sinusitis Sleep apnea CPAP Stasis dermatitis Stroke 5+ YEARS AGO PER CHART REVIEW; NO RESIDUAL DEFICITS= ON PLAVIX Surgical History History of bladder surgery History of cataract surgery B/L History of prostate surgery History of surgical procedure on eye proper using laser right eye Hx of knee surgery Hx of toe surgery Family History Other Family history non-contributory No family history of adverse response to anesthesia Social History Smoking Status: Former smoker Cigarettes Per Day: QUIT 50+ YEARS AGO; Second Hand Exposure: No; Hx Alcohol Use: No Hx Substance Use: No Preferred Language: Azeri Communication Ability: Effective Visual Impairment: No Limitations Veterinary Physiologist Required: No Beliefs That Will Affect Care: None marital status: Current Living Situation: [facility] Current Living Situation Comment: [facility] current occupational status: retired Feels Safe at Home: Yes Assistive Devices: None Review of Systems A total of 10 systems reviewed and were otherwise negative Physical Exam Vital Signs Vital Signs - 24 hr 09/24/20 20:41 09/24/20 22:30 09/24/20 22:34 Temperature 36.7 C Temperature Source Oral Pulse Rate 78 80 81 Pulse Rate from SpO2 Sensor 65 66 Respiratory Rate 18 18 22 Respiratory Effort / Characteristics Non-Labored Spontaneous Respiratory Depth Normal Blood Pressure 205/96 H 175/87 H Blood Pressure Mean 132 116 Blood Pressure Position Sitting Pulse Oximetry 95 99 99 Oxygen Delivery Method Room Air Sepsis Recent Fever Within 48 Hours No Sepsis New/Unexplained Change in Mental Status No Sepsis Action Taken by Nursing No Action Required General: Well developed well nourished older male who in no acute distress, breathing comfortably on room air. Normal speech HEENT: Normal cephalic atraumatic. Pupils are equal round and reactive to light. Extraocular movements are intact. Oropharynx is pink with moist mucous membranes. No swelling of the mouth lips or tongue. Neck: Supple with a midline trachea. No meningeal signs or stiffness, no JVD or bruits. No Stridor. Chest: Clear to auscultation bilaterally with some scattered wheezes. No increased work of breathing. Heart: Regular rate and rhythm without murmurs or gallops. Abdomen: Soft nontender, nondistended without rebound guarding or rigidity. Extremities: No cyanosis clubbing or edema. No calf tenderness or assymetry. The right knee is not red or warm it is not significantly tender is full range of motion is good distal pulses. Normal motor and sensation. He points to the anterior aspect below the knee where he says it hurts and not posteriorly Spine/Back. Non tender to palpation. No CVA tenderness Skin: Good turgor without rashes. Neurologic exam: Cranial nerves two through 12 are intact. Motor and sensation are intact and symmetrical throughout. Course Administered Medications Discontinued Medications Morphine Sulfate (Morphine Sulfate 2 Mg/Ml Carp) 2 mg IV NOW STA Stop: 09/24/20 21:17 Last Admin: 09/24/20 21:49 Dose: 2 mg Documented by: [id number] Morphine Sulfate (Morphine Sulfate 2 Mg/Ml Carp) 2 mg IV NOW STA Stop: 09/24/20 22:31 Last Admin: 09/24/20 22:42 Dose: 2 mg Documented by: [id number] Ondansetron HCl (Ondansetron Inj 2 Mg/Ml 2 Ml Vial) 4 mg IV NOW STA Stop: 09/24/20 21:17 Last Admin: 09/24/20 21:50 Dose: 4 mg Documented by: [id number] Medical Decision Making Differential Diagnosis Cho's cyst, DVT, arthritis, knee infection, depression, suicidal ideations, COPD Medical Records Attestation: I reviewed the patient's medical records. Home Medications Current Medication List: was personally reviewed by me Laboratory Data Attestation: I reviewed the patient's lab results. Result diagrams: 09/24/20 21:36 09/24/20 21:36 Lab Results 09/24/20 09/24/20 09/24/20 Range/Units 21:36 21:36 21:36 WBC 10.45 (4.8-10.8) K/uL RBC 3.92 L (4.7-6.1) M/uL Hgb 12.7 L (14.0-18.0) g/dL Hct 37.6 L (42-52) % MCV 95.9 (80-100) fL MCH 32.4 (25-34) pg MCHC 33.8 (32-36) g/dL RDW Std Deviation 54.4 H (36.4-46.3) fL RDW Coeff of Sim 15.5 H (11.5-14.5) % Plt Count 320 (130-400) K/uL MPV 10.2 (7.4-10.4) fL Immature Gran % (Auto) 0.2 % Neut % (Auto) 75.4 % Lymph % (Auto) 14.1 % [place] % (Auto) 7.5 % Eos % (Auto) 2.6 % Baso % (Auto) 0.2 % Neut # (Auto) 7.89 H (1.4-6.5) K/uL Lymph # (Auto) 1.47 (1.2-3.4) K/uL [place] # (Auto) 0.78 H (0.11-0.59) K/uL Eos # (Auto) 0.27 (0-0.5) K/uL Baso # (Auto) 0.02 (0-0.2) K/uL Immature Gran # (Auto) 0.02 (0.00-0.02) K/uL ESR 63 H (0-14) mm/hr Sodium 135 L (136-145) mmol/L Potassium 4.3 (3.5-5.1) mmol/L Chloride 105 (98-107) mmol/L Carbon Dioxide 25 (21-32) mmol/L Anion Gap 6.0 (3-11) BUN 26 H (7-18) mg/dl Creatinine 1.35 (0.6-1.4) mg/dl Est Cr Clr Drug Dosing 40.4 ml/min Est GFR ( Amer) 53.6 Est GFR (Non-Af Amer) 46.2 BUN/Creatinine Ratio 19.1 (10-20) Glucose 137 H (70-99) mg/dl Calcium 8.9 (8.5-10.1) mg/dl Total Bilirubin 0.2 (0.2-1) mg/dl AST 17 (15-37) U/L ALT 24 (12-78) U/L Alkaline Phosphatase 140 H (45-117) U/L C-Reactive Protein 1.63 H (0-0.29) mg/dl Total Protein 7.7 (6.4-8.2) gm/dl Albumin 3.0 L (3.4-5.0) gm/dl Globulin 4.7 H (2.5-4.0) gm/dl Albumin/Globulin Ratio 0.6 L (0.9-2) TSH 2.910 (0.300-4.500) uIu/ml Urine Color Urine Appearance (Clear) Urine pH (4.5-7.5) Ur Specific [place] (1.000-1.030) Urine Protein (Negative) Urine Glucose (UA) (Negative) Urine Ketones (Negative) Urine Blood (Negative) Urine Nitrite (Negative) Urine Bilirubin (Negative) Urine Urobilinogen (Negative) Ur Leukocyte Esterase (Negative) Urine WBC (Auto) (0-5) /hpf Urine RBC (Auto) (0-4) /hpf U Hyaline Cast (Auto) (0-5) /lpf U Epithel Cells (Auto) (0-5) /lpf Urine Bacteria (Auto) (Negative) Salicylates (2.8-20) mg/dl Urine Opiates Screen (Neg) Ur Methadone, Qual (Neg) Acetaminophen (10-30) ug/ml Urine Barbiturates (Neg) Ur Phencyclidine (PCP) (Neg) U Amphetamin/Meth Scrn (Neg) MDMA (Ecstasy) Screen (Neg) U Benzodiazepines Scrn (Neg) Ur Cocaine Metabolite (Neg) U Marijuana (THC) Screen (Neg) Ethyl Alcohol mg/dL (0-3) mg/dl COVID-19 Eval Order 09/24/20 09/24/20 09/24/20 Range/Units 21:36 21:36 21:40 WBC (4.8-10.8) K/uL RBC (4.7-6.1) M/uL Hgb (14.0-18.0) g/dL Hct (42-52) % MCV (80-100) fL MCH (25-34) pg MCHC (32-36) g/dL RDW Std Deviation (36.4-46.3) fL RDW Coeff of Sim (11.5-14.5) % Plt Count (130-400) K/uL MPV (7.4-10.4) fL Immature Gran % (Auto) % Neut % (Auto) % Lymph % (Auto) % [place] % (Auto) % Eos % (Auto) % Baso % (Auto) % Neut # (Auto) (1.4-6.5) K/uL Lymph # (Auto) (1.2-3.4) K/uL [place] # (Auto) (0.11-0.59) K/uL Eos # (Auto) (0-0.5) K/uL Baso # (Auto) (0-0.2) K/uL Immature Gran # (Auto) (0.00-0.02) K/uL ESR (0-14) mm/hr Sodium (136-145) mmol/L Potassium (3.5-5.1) mmol/L Chloride (98-107) mmol/L Carbon Dioxide (21-32) mmol/L Anion Gap (3-11) BUN (7-18) mg/dl Creatinine (0.6-1.4) mg/dl Est Cr Clr Drug Dosing ml/min Est GFR ( Amer) Est GFR (Non-Af Amer) BUN/Creatinine Ratio (10-20) Glucose (70-99) mg/dl Calcium (8.5-10.1) mg/dl Total Bilirubin (0.2-1) mg/dl AST (15-37) U/L ALT (12-78) U/L Alkaline Phosphatase (45-117) U/L C-Reactive Protein (0-0.29) mg/dl Total Protein (6.4-8.2) gm/dl Albumin (3.4-5.0) gm/dl Globulin (2.5-4.0) gm/dl Albumin/Globulin Ratio (0.9-2) TSH (0.300-4.500) uIu/ml Urine Color Yellow Urine Appearance Clear (Clear) Urine pH 6.0 (4.5-7.5) Ur Specific [place] 1.013 (1.000-1.030) Urine Protein 3+ H (Negative) Urine Glucose (UA) Negative (Negative) Urine Ketones Negative (Negative) Urine Blood Negative (Negative) Urine Nitrite Negative (Negative) Urine Bilirubin Negative (Negative) Urine Urobilinogen Negative (Negative) Ur Leukocyte Esterase Negative (Negative) Urine WBC (Auto) 5-10 H (0-5) /hpf Urine RBC (Auto) >30 H (0-4) /hpf U Hyaline Cast (Auto) 1-5 (0-5) /lpf U Epithel Cells (Auto) 20-30 H (0-5) /lpf Urine Bacteria (Auto) 2+ H (Negative) Salicylates < 1.7 L (2.8-20) mg/dl Urine Opiates Screen (Neg) Ur Methadone, Qual (Neg) Acetaminophen < 2 L (10-30) ug/ml Urine Barbiturates (Neg) Ur Phencyclidine (PCP) (Neg) U Amphetamin/Meth Scrn (Neg) MDMA (Ecstasy) Screen (Neg) U Benzodiazepines Scrn (Neg) Ur Cocaine Metabolite (Neg) U Marijuana (THC) Screen (Neg) Ethyl Alcohol mg/dL < 3.0 (0-3) mg/dl COVID-19 Eval Order 09/24/20 09/24/20 Range/Units 21:40 23:28 WBC (4.8-10.8) K/uL RBC (4.7-6.1) M/uL Hgb (14.0-18.0) g/dL Hct (42-52) % MCV (80-100) fL MCH (25-34) pg MCHC (32-36) g/dL RDW Std Deviation (36.4-46.3) fL RDW Coeff of Sim (11.5-14.5) % Plt Count (130-400) K/uL MPV (7.4-10.4) fL Immature Gran % (Auto) % Neut % (Auto) % Lymph % (Auto) % [place] % (Auto) % Eos % (Auto) % Baso % (Auto) % Neut # (Auto) (1.4-6.5) K/uL Lymph # (Auto) (1.2-3.4) K/uL [place] # (Auto) (0.11-0.59) K/uL Eos # (Auto) (0-0.5) K/uL Baso # (Auto) (0-0.2) K/uL Immature Gran # (Auto) (0.00-0.02) K/uL ESR (0-14) mm/hr Sodium (136-145) mmol/L Potassium (3.5-5.1) mmol/L Chloride (98-107) mmol/L Carbon Dioxide (21-32) mmol/L Anion Gap (3-11) BUN (7-18) mg/dl Creatinine (0.6-1.4) mg/dl Est Cr Clr Drug Dosing ml/min Est GFR ( Amer) Est GFR (Non-Af Amer) BUN/Creatinine Ratio (10-20) Glucose (70-99) mg/dl Calcium (8.5-10.1) mg/dl Total Bilirubin (0.2-1) mg/dl AST (15-37) U/L ALT (12-78) U/L Alkaline Phosphatase (45-117) U/L C-Reactive Protein (0-0.29) mg/dl Total Protein (6.4-8.2) gm/dl Albumin (3.4-5.0) gm/dl Globulin (2.5-4.0) gm/dl Albumin/Globulin Ratio (0.9-2) TSH (0.300-4.500) uIu/ml Urine Color Urine Appearance (Clear) Urine pH (4.5-7.5) Ur Specific [place] (1.000-1.030) Urine Protein (Negative) Urine Glucose (UA) (Negative) Urine Ketones (Negative) Urine Blood (Negative) Urine Nitrite (Negative) Urine Bilirubin (Negative) Urine Urobilinogen (Negative) Ur Leukocyte Esterase (Negative) Urine WBC (Auto) (0-5) /hpf Urine RBC (Auto) (0-4) /hpf U Hyaline Cast (Auto) (0-5) /lpf U Epithel Cells (Auto) (0-5) /lpf Urine Bacteria (Auto) (Negative) Salicylates (2.8-20) mg/dl Urine Opiates Screen Neg (Neg) Ur Methadone, Qual Neg (Neg) Acetaminophen (10-30) ug/ml Urine Barbiturates Pos H (Neg) Ur Phencyclidine (PCP) Neg (Neg) U Amphetamin/Meth Scrn Neg (Neg) MDMA (Ecstasy) Screen Neg (Neg) U Benzodiazepines Scrn Neg (Neg) Ur Cocaine Metabolite Neg (Neg) U Marijuana (THC) Screen Neg (Neg) Ethyl Alcohol mg/dL (0-3) mg/dl COVID-19 Eval Order Covid19 IDNow [facility] Imaging Data Attestation: I personally reviewed and interpreted this imaging study as follows: My Impression: Right knee x-ray: No fracture or bony abnormality. There may be a small effusion Radiologist's Impression: Stat radultrasound venous right lower extremity. No evidence of DVT. 4.7 cm long popliteal fossa cyst is again seen MDM Narrative This patient comes in as described above. He was placed on a court recording monitor room A3. He is here for treatment evaluation of right knee pain. This is complicated by the fact that he said that he wanted to kill himself secondary to the pain. He appears cooperative at this point he is in a setting where his medications are controlled and he is full care in a half-way. I did call and talk to the daughter at length as well. IV access was established and he was placed on a court recording monitor. Ultrasound was unchanged and shows no evidence of DVT. He has no white count or fever to suggest infection. He has no sign of electrolyte or metabolic abnormalities. He was given IV morphine 2 mg and Zofran 4 mg and was reassessed. I talked to his daughter at length. X-rays do not show any bony abnormality. On exam, the knee is not red or warm or visibly swollen, and I do not appreciate a large effusion. I do think he needs to be admitted/observed for pain management, orthopedic consultation and potentially even mental health consultation. The patient says that when his pain is under control, he does not feel like he wants to hurt himself but is concerned about going home and having further pain. I did consult Dr. Brown to see him in the ER for these measures. Continuous cardiac monitoring: Order was placed in EMR for continuous cardiac monitoring. The patient was noted to be in normal sinus rhythm with a pulse of 81 Impression & Plan Acute knee pain, COPD (chronic obstructive pulmonary disease), Cho's cyst of knee, Suicidal ideations Discharge Plan Visit Data Chief Complaint: Knee Injury/Pain Stated Complaint: MHID, R KNEE PAIN ED Provider: Avel Camacho Discharge Problem: Acute knee pain, COPD (chronic obstructive pulmonary disease), Cho's cyst of knee, Suicidal ideations Forms Stand Alone Forms: My [facility] Prescriptions Prescriptions: No Action betamethasone dipropionate 0.05 % cream 1 applic TOPICAL BID Qty: 45 RF: 0 clopidogrel 75 mg Tablet 75 mg PO [id number] RF: 0 dutasteride [Avodart] 0.5 mg Capsule 0.5 mg PO QAM RF: 0 amlodipine [Norvasc] 5 mg tablet 10 mg PO QAM RF: 0 budesonide 0.5 mg/2 mL Suspension For Nebulization 2 ml INHALATION BID RF: 0 hydralazine 100 mg tablet 100 mg PO TID RF: 0 escitalopram oxalate 5 mg tablet 5 mg PO QAM RF: 0 (DME) lancets [OneTouch Delica Plus Lancet] 30 gauge misc See Rx Instructions .ROUTE .MEDSUPPLY Qty: 100 RF: 0 (DME) blood-glucose meter [OneTouch Ultra2 Meter] Kit See Rx Instructions .ROUTE .MEDSUPPLY Qty: 1 RF: 0 (DME) OneTouch Ultra Blue Test Strip Strip See Rx Instructions .ROUTE .MEDSUPPLY Qty: 100 RF: 0 Lantus U-100 Insulin 100 unit/mL solution 25 unit SUBCUT BID RF: 0 Lactobacillus acidophilus [Acidophilus] Capsule 175 mg PO DAILY RF: 0 Brovana 15 mcg/2 mL Solution For Nebulization 2 ml INHALATION BID RF: 0 levothyroxine 75 mcg Tablet 75 mcg PO DAILY RF: 0 primidone 250 mg Tablet 375 mg PO BID RF: 0 pravastatin 20 mg Tablet 20 mg PO HS RF: 0 polyethylene glycol 3350 17 gram/dose Powder 17 g PO DAILY RF: 0 PreserVision AREDS-2 [id number] Capsule 1 tab PO BID RF: 0 sennosides [senna] 8.6 mg Tablet 8.6 mg PO BID RF: 0 docusate sodium [Stool Softener] 100 mg Capsule 100 mg PO DAILY RF: 0 acetaminophen 325 mg Tablet 650 mg PO QID MDD 3g PRN (Reason: Pain) RF: 0 Zioptan (PF) 0.0015 % Dropperette 1 drp OPB HS RF: 0 albuterol sulfate 2.5 mg /3 mL (0.083 %) Solution For Nebulization 2.5 mg INHALATION Q6 PRN (Reason: Shortness Of Breath Or Wheezing) RF: 0 spironolactone 25 mg Tablet 25 mg PO QAM Qty: 30 RF: 0 benzonatate 200 mg Capsule 200 mg PO Q8 PRN (Reason: Cough) RF: 0 Refresh Classic (PF) 1.4-0.6 % Dropperette 1 drp OPB QID PRN (Reason: Dry Eyes) RF: 0 tamsulosin 0.4 mg capsule 0.4 mg PO HS RF: 0 torsemide 20 mg tablet 20 mg PO Q OTHER DAY RF: 0 lidocaine 5 % adhesive patch,medicated 1 patch TOP DAILY PRN (Reason: pain) Qty: 15 RF: 0 oxycodone [Roxicodone] 5 mg tablet 2.5 mg PO Q8H PRN (Reason: pain) Qty: 3 RF: 0 Discharge Problem: Acute knee pain Qualifiers: Laterality: right Qualified Code(s): M25.561 - Pain in right knee COPD (chronic obstructive pulmonary disease) Qualifiers: COPD type: unspecified COPD Qualified Code(s): J44.9 - Chronic obstructive pulmonary disease, unspecified Cho's cyst of knee Qualifiers: Laterality: right Qualified Code(s): M71.21 - Synovial cyst of popliteal space [Cho], right knee
[2020-09-24] MEDS ORDERED: ONDANSETRON INJ 2 MG/ML 2 ML VIAL IV STA (21:16)
[2020-09-24] MEDS ORDERED: MoRPHine SULFATE 2 MG/ML CARP IV STA ×2 (21:16→22:30)
[2020-09-24 21:54] LABS: Basophils # (auto) 0.02 K/uL (0-0.2); Basophils % (auto) 0.2 %; Eosinophils # (auto) 0.27 K/uL (0-0.5); Eosinophils % (auto) 2.6 %; Hematocrit (blood only) 37.6 % (42-52); Hemoglobin 12.7 g/dL (14.0-18.0); Immature Granulocytes # (auto) 0.02 K/uL (0.00-0.02); Immature Granulocytes % (auto) 0.2 %; Lymphocytes # (auto) 1.47 K/uL (1.2-3.4); Lymphocytes % (auto) 14.1 %; Mean Corpuscular Hemoglobin 32.4 pg (25-34); Mean Corpuscular Hgb Conc 33.8 g/dL (32-36); Mean Corpuscular Volume 95.9 fL (80-100); Mean Platelet Volume 10.2 fL (7.4-10.4); Monocytes # (auto) 0.78 K/uL (0.11-0.59); Monocytes % (auto) 7.5 %; Neutrophils # (auto) 7.89 K/uL (1.4-6.5); Neutrophils % (auto) 75.4 %; Platelet Count 320 K/uL (130-400); RDW Coefficient of Variation 15.5 % (11.5-14.5); RDW Standard Deviation 54.4 fL (36.4-46.3); Red Blood Count 3.92 M/uL (4.7-6.1); White Blood Count 10.45 K/uL (4.8-10.8)
[2020-09-24 22:14] LABS: Appearance Urine Clear (Clear); Bacteria Urine Automated 2+ (Negative); Bilirubin Urine Negative (Negative); Blood Urine Negative (Negative); Color Urine Yellow; Epithelial Cell Urine Auto 20-30 /lpf (0-5); Glucose Urine UA Negative (Negative); Ketones Urine Negative (Negative); Leukocyte Esterase Urine Negative (Negative); Nitrite Urine Negative (Negative); Protein Urine 3+ (Negative); RBC Urine Automated >30 /hpf (0-4); Specific Gravity Urine 1.013 (1.000-1.030); Urobilinogen Urine Negative (Negative)
[2020-09-24 22:18] LABS: BUN Creatinine Ratio 19.1 (10-20); C Reactive Protein 1.63 mg/dl (0-0.29); Calcium 8.9 mg/dl (8.5-10.1); Creatinine Clr Calc Pharmacy 40.4 ml/min; Est GFR (African American) 53.6; Est GFR (Non-African American) 46.2; Potassium 4.3 mmol/L (3.5-5.1)
[2020-09-24 22:20] LABS: Acetaminophen < 2 ug/ml (10-30); Salicylate < 1.7 mg/dl (2.8-20)
[2020-09-24 22:29] LABS: Albumin Globulin Ratio 0.6 (0.9-2); Bilirubin,Total 0.2 mg/dl (0.2-1); Globulin 4.7 gm/dl (2.5-4.0); Thyroid Stimulating Hormone 2.91 uIu/ml (0.300-4.500); Total Protein 7.7 gm/dl (6.4-8.2)
[2020-09-24 22:31] LABS: Amphetamines+Metham, Urine Neg (Neg); Barbiturates, Urine Pos (Neg); Benzodiazepine, Urine Neg (Neg); Cocaine, Urine Neg (Neg); MDMA (Ecstacy), Urine Neg (Neg); Methadone, Urine Neg (Neg); Opiate, Urine Neg (Neg); Phencyclidine, Urine Neg (Neg)
--- NOTE | 2020-09-25 02:21 | History & Physical Report ---
Date of Service September 25, 2020 Assessment & Plan (1) Acute knee pain: Acute right knee pain/popliteal cyst/Cho's cyst of knee/quadriceps muscle strain- Patient reported severe pain, bad enough to want to commit suicide. Acetaminophen 650 mg p.o. every 6 hours as needed mild pain or fever Oxycodone 2.5 mg p.o. every 8 hours as needed moderate pain Morphine sulfate 2 mg IV every 4 hours as needed severe pain Consult orthopedic surgery Present on Admission?: Yes (2) Quadriceps muscle strain: See above Present on Admission?: Yes (3) Popliteal cyst: See above Present on Admission?: Yes (4) Cho's cyst of knee: See above Present on Admission?: Yes (5) COPD (chronic obstructive pulmonary disease): Continue albuterol sulfate nebulizers every 6 hours as needed. Continue budesonide respules 0.5 mg inhaled twice daily Present on Admission?: Yes (6) Suicidal ideations: Consult psychiatry Present on Admission?: Yes (7) BPH (benign prostatic hyperplasia): Continue tamsulosin 0.4 mg at bedtime and dutasteride 0.5 mg in the morning Present on Admission?: Yes (8) Hypothyroidism: Continue levothyroxine 75 mcg daily Present on Admission?: Yes (9) Hypertension: Hypertension/history of CVA- Continue amlodipine, clopidogrel, hydralazine, spironolactone. Hold torsemide due to decreased oral intake Present on Admission?: Yes (10) Diabetes: Reduce Lantus from 25 units subcu twice daily to 20 units subcu twice daily. Placed on Accu-Cheks before meals and at bedtime with NovoLog coverage per scale Present on Admission?: Yes (11) Bladder cancer: History of Present Illness Chief Complaint: The patient presents to the emergency department with complaint of severe right knee pain, and reportedly at home had threatened to kill himself because the pain was so severe. Primary Care Provider: [facility] The patient is an 89-year-old male with a past medical history including COPD, Cho's cyst of right knee, suicidal ideations, acute respiratory failure with hypoxia, COPD acute exacerbation, acute renal sufficiency, BPH, urethral stricture, bladder cancer, glaucoma, hypothyroidism, diabetes mellitus, hypertension, generalized weakness, tobacco use disorder, stroke 8 years ago, carbon monoxide exposure, hyponatremia and stasis dermatitis. Patient was in the emergency department on 09/21/2020, and was diagnosed with a Cho's cyst of the right knee at that time. He has an outpatient appointment scheduled with orthopedic surgery, but was brought into the ED due to the severity of his pain, and the concerns regarding suicidal ideation. His has recently , and her is on 09/26. Allergies Allergy/AdvReac Type Severity Reaction Status Date / Time cephalexin Allergy Intermediate RASH Verified 09/21/20 21:19 doxycycline Allergy Intermediate RASH Verified 09/21/20 21:19 propranolol Allergy Mild BRADYCARDIA Verified 09/21/20 21:19 hydrochlorothiazide Allergy Unknown Unknown Verified 09/21/20 21:19 sulfamethoxazole AdvReac Intermediate hyperkalemi Verified 09/21/20 21:19 [From Bactrim] a trimethoprim [From Bactrim] AdvReac Intermediate hyperkalemi Verified 09/21/20 21:19 a Home Medications Medication Instructions Recorded Confirmed Type clopidogrel 75 mg PO 3XWK 06/28/18 09/24/20 History dutasteride [Avodart] 0.5 mg PO QAM 06/28/18 09/24/20 History amlodipine [Norvasc] 10 mg PO QAM 08/13/18 09/24/20 History budesonide 2 ml INHALATION BID 08/13/18 09/24/20 History escitalopram oxalate 5 mg PO QAM 09/02/19 09/24/20 History hydralazine 100 mg PO TID 09/02/19 09/24/20 History OneTouch Ultra Blue Test Strip #100 ea 09/05/19 09/21/20 Rx blood-glucose meter [OneTouch #1 ea 09/05/19 09/21/20 Rx Ultra2 Meter] lancets [OneTouch Delica Plus #100 ea 09/05/19 09/21/20 Rx Lancet] betamethasone dipropionate 0.05 % 1 applic TOPICAL BID #45 gm 07/20/20 09/24/20 Rx topical cream Brovana 2 ml INHALATION BID 08/07/20 09/24/20 History Lactobacillus acidophilus 175 mg PO DAILY 08/07/20 09/24/20 History [Acidophilus] Lantus U-100 Insulin 25 unit SUBCUT BID 08/07/20 09/24/20 History PreserVision AREDS-2 1 tab PO BID 08/07/20 09/24/20 History Zioptan (PF) 1 drp OPB HS 08/07/20 09/24/20 History acetaminophen 650 mg PO QID PRN MDD 3g 08/07/20 09/24/20 History albuterol sulfate 2.5 mg INHALATION Q6 PRN 08/07/20 09/24/20 History docusate sodium [Stool Softener] 100 mg PO DAILY 08/07/20 09/24/20 History levothyroxine 75 mcg PO DAILY 08/07/20 09/24/20 History polyethylene glycol 3350 17 g PO DAILY 08/07/20 09/24/20 History pravastatin 20 mg PO HS 08/07/20 09/24/20 History primidone 375 mg PO BID 08/07/20 09/24/20 History sennosides [senna] 8.6 mg PO BID 08/07/20 09/24/20 History spironolactone 25 mg PO QAM #30 tab 08/13/20 09/24/20 Rx benzonatate 200 mg PO Q8 PRN 09/21/20 09/24/20 History lidocaine 1 patch TOP DAILY PRN #15 ea 09/21/20 09/24/20 Rx oxycodone [Roxicodone] 2.5 mg PO Q8H PRN #3 tab 09/21/20 09/24/20 Rx polyvinyl alcohol-povidon(PF) 1 drp OPB QID PRN 09/21/20 09/24/20 History [Refresh Classic (PF)] tamsulosin 0.4 mg PO HS 09/21/20 09/24/20 History torsemide 20 mg PO Q OTHER DAY 09/21/20 09/24/20 History Past Med/Surg History Medical History Bilateral lower extremity edema Bladder cancer REASON FOR PROCEDURE BPH (benign prostatic hyperplasia) Carbon monoxide exposure Chronic obstructive pulmonary disease STABLE CKD (chronic kidney disease) COPD exacerbation Dizziness History of tremor Hx of deep venous thrombosis PER RECORDS; PATIENT DENIES Hx of spinal stenosis Hyperlipidemia Hypertension Hyponatremia Hypothyroidism Infection due to urethral catheter Leg pain, left Obesity Seizure PER RECORDS; PATIENT DENIES Sinusitis Sleep apnea CPAP Stasis dermatitis Stroke 5+ YEARS AGO PER CHART REVIEW; NO RESIDUAL DEFICITS= ON PLAVIX Surgical History History of bladder surgery History of cataract surgery B/L History of prostate surgery History of surgical procedure on eye proper using laser right eye Hx of knee surgery Hx of toe surgery Family History Other Family history non-contributory No family history of adverse response to anesthesia Social History Smoking Status: Former smoker Cigarettes Per Day: QUIT 50+ YEARS AGO; Second Hand Exposure: No; Hx Alcohol Use: No Hx Substance Use: No Preferred Language: Mohawk Communication Ability: Effective Visual Impairment: No Limitations 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 Beliefs That Will Affect Care: None marital status: Current Living Situation: Care Home Current Living Situation Comment: [facility] current occupational status: retired Feels Safe at Home: Yes Assistive Devices: None Review of Systems Review of Systems: The patient denies chest pain, palpitations, shortness of breath, dyspnea on exertion, cough, sore throat, fevers, chills, sweats, nausea, vomiting, diarrhea , constipation, abdominal pain, pelvic pain, blood in urine or stool, dysuria, urinary frequency or urgency, lightheadedness, dizziness, headache, memory loss, loss of consciousness, rash, abnormal bruising or bleeding, imbalance, focal or generalized weakness, numbness or tingling in arms, generalized arthralgias or myalgias, back or neck pain, or night sweats. The review of systems is otherwise negative other than for that already noted above, and at least 10 systems have been reviewed. Physical Exam Physical Exam: The patient is awake, alert and oriented 3, well developed and well nourished, normocephalic and atraumatic, lying in bed and in no acute distress. HEENT--PERRL, EOMI, mucous membranes and oropharynx normal. Neck--supple. No JVD. No bruits. Thyroid normal, trachea midline, no adenopathy. Heart--normal S1 and S2. No murmurs, rubs or gallops. Lungs--clear bilaterally, no respiratory distress, no accessory muscle use. Abdomen--normal bowel sounds and soft. Nontender. Nondistended, no hernias or masses, no organomegaly. Extremities--no cyanosis or clubbing. No edema. Dermatologic--normal skin turgor, normal color, no abnormal lymph nodes, no rash. Neurologic--cranial nerves II through XII grossly intact. Rheumatologic--limited ROM right knee due to pain Psychiatric--normal affect. Results & Data Results & Data ([facility]) Vital Signs (Past 12 Hours) Vital Signs Temp Pulse Resp BP Pulse Ox 09/25/20 00:00 79 19 149/89 H 100 09/24/20 23:30 81 16 180/96 H 100 09/24/20 23:01 82 17 156/81 H 99 09/24/20 22:34 81 22 99 09/24/20 22:30 80 18 175/87 H 99 09/24/20 20:41 98.1 F 78 18 205/96 H 95 Laboratory Results Laboratory Results WBC 10.45 K/uL (4.8-10.8) 09/24/20 21:36 RBC 3.92 M/uL (4.7-6.1) L 09/24/20 21:36 Hgb 12.7 g/dL (14.0-18.0) L 09/24/20 21:36 Hct 37.6 % (42-52) L 09/24/20 21:36 MCV 95.9 fL (80-100) 09/24/20 21:36 MCH 32.4 pg (25-34) 09/24/20 21:36 MCHC 33.8 g/dL (32-36) 09/24/20 21:36 RDW Std Deviation 54.4 fL (36.4-46.3) H 09/24/20 21:36 RDW Coeff of Sim 15.5 % (11.5-14.5) H 09/24/20 21:36 Plt Count 320 K/uL (130-400) 09/24/20 21:36 MPV 10.2 fL (7.4-10.4) 09/24/20 21:36 Immature Gran % (Auto) 0.2 % 09/24/20 21:36 Neut % (Auto) 75.4 % 09/24/20 21:36 Lymph % (Auto) 14.1 % 09/24/20 21:36 F[place]ardo % (Auto) 7.5 % 09/24/20 21:36 Eos % (Auto) 2.6 % 09/24/20 21:36 Baso % (Auto) 0.2 % 09/24/20 21:36 Neut # (Auto) 7.89 K/uL (1.4-6.5) H 09/24/20 21:36 Lymph # (Auto) 1.47 K/uL (1.2-3.4) 09/24/20 21:36 Fajardo # (Auto) 0.78 K/uL (0.11-0.59) H 09/24/20 21:36 Eos # (Auto) 0.27 K/uL (0-0.5) 09/24/20 21:36 Baso # (Auto) 0.02 K/uL (0-0.2) 09/24/20 21:36 Immature Gran # (Auto) 0.02 K/uL (0.00-0.02) 09/24/20 21:36 ESR 63 mm/hr (0-14) H 09/24/20 21:36 Sodium 135 mmol/L (136-145) L 09/24/20 21:36 Potassium 4.3 mmol/L (3.5-5.1) 09/24/20 21:36 Chloride 105 mmol/L (98-107) 09/24/20 21:36 Carbon Dioxide 25 mmol/L (21-32) 09/24/20 21:36 Anion Gap 6.0 (3-11) 09/24/20 21:36 BUN 26 mg/dl (7-18) H 09/24/20 21:36 Creatinine 1.35 mg/dl (0.6-1.4) 09/24/20 21:36 Est Cr Clr Drug Dosing 40.4 ml/min 09/24/20 21:36 Est GFR ( Amer) 53.6 09/24/20 21:36 Est GFR (Non-Af Amer) 46.2 09/24/20 21:36 BUN/Creatinine Ratio 19.1 (10-20) 09/24/20 21:36 Glucose 137 mg/dl (70-99) H 09/24/20 21:36 Calcium 8.9 mg/dl (8.5-10.1) 09/24/20 21:36 Total Bilirubin 0.2 mg/dl (0.2-1) 09/24/20 21:36 AST 17 U/L (15-37) 09/24/20 21:36 ALT 24 U/L (12-78) 09/24/20 21:36 Alkaline Phosphatase 140 U/L (45-117) H 09/24/20 21:36 C-Reactive Protein 1.63 mg/dl (0-0.29) H 09/24/20 21:36 Total Protein 7.7 gm/dl (6.4-8.2) 09/24/20 21:36 Albumin 3.0 gm/dl (3.4-5.0) L 09/24/20 21:36 Globulin 4.7 gm/dl (2.5-4.0) H 09/24/20 21:36 Albumin/Globulin Ratio 0.6 (0.9-2) L 09/24/20 21:36 TSH 2.910 uIu/ml (0.300-4.500) 09/24/20 21:36 Urine Color Yellow 09/24/20 21:40 Urine Appearance Clear (Clear) 09/24/20 21:40 Urine pH 6.0 (4.5-7.5) 09/24/20 21:40 Ur Specific [place] 1.013 (1.000-1.030) 09/24/20 21:40 Urine Protein 3+ (Negative) H 09/24/20 21:40 Urine Glucose (UA) Negative (Negative) 09/24/20 21:40 Urine Ketones Negative (Negative) 09/24/20 21:40 Urine Blood Negative (Negative) 09/24/20 21:40 Urine Nitrite Negative (Negative) 09/24/20 21:40 Urine Bilirubin Negative (Negative) 09/24/20 21:40 Urine Urobilinogen Negative (Negative) 09/24/20 21:40 Ur Leukocyte Esterase Negative (Negative) 09/24/20 21:40 Urine WBC (Auto) 5-10 /hpf (0-5) H 09/24/20 21:40 Urine RBC (Auto) >30 /hpf (0-4) H 09/24/20 21:40 U Hyaline Cast (Auto) 1-5 /lpf (0-5) 09/24/20 21:40 U Epithel Cells (Auto) 20-30 /lpf (0-5) H 09/24/20 21:40 Urine Bacteria (Auto) 2+ (Negative) H 09/24/20 21:40 Salicylates < 1.7 mg/dl (2.8-20) L 09/24/20 21:36 Urine Opiates Screen Neg (Neg) 09/24/20 21:40 Ur Methadone, Qual Neg (Neg) 09/24/20 21:40 Acetaminophen < 2 ug/ml (10-30) L 09/24/20 21:36 Urine Barbiturates Pos (Neg) H 09/24/20 21:40 Ur Phencyclidine (PCP) Neg (Neg) 09/24/20 21:40 U Amphetamin/Meth Scrn Neg (Neg) 09/24/20 21:40 MDMA (Ecstasy) Screen Neg (Neg) 09/24/20 21:40 U Benzodiazepines Scrn Neg (Neg) 09/24/20 21:40 Ur Cocaine Metabolite Neg (Neg) 09/24/20 21:40 U Marijuana (THC) Screen Neg (Neg) 09/24/20 21:40 Ethyl Alcohol mg/dL < 3.0 mg/dl (0-3) 09/24/20 21:36 COVID-19 Eval Order Covid19 IDNow atMMAC 09/24/20 23:28 SARS-CoV-2, RNA, NAAT NEGATIVE (NEGATIVE) 09/24/20 23:28 Diagnostic Findings [facility], [phone] Ultrasound Report Patient: HOWIE FINK EAdmit Date: 09/21/20MR#: [id number]: [id number] RDAcct ID:[id number]: Date: 1930[facility] Zip: [place], [place] [address]Rwk: 89Location: EDSex: MRoom/Bed:Att Phy:Diagnosis: pain in Right LegPri Phy: [facility] [place] Date: 09/21/20Fa Phy:Interpreting Phy: Seb Pittman MDAdmit Phy: Ordering Phy: Darek Vasquez MD cc: ~ ULTRASOUND RIGHT LOWER EXTREMITY VENOUS CLINICAL HISTORY: Right leg pain. COMPARISON STUDY: Bilateral lower extremity venous ultrasound dated 07/17/2017. TECHNIQUE: Real-time, grayscale, and color Doppler sonography of the deep veins of the right lower extremity was performed from the inguinal crease to the calf. Compression and augmentation were utilized. FINDINGS: There is no sonographic evidence of deep venous thrombosis identified in the right lower extremity. The common femoral, superficial femoral, and popliteal veins are patent and normally compressible. The greater saphenous vein and the profunda femoris vein at the junction with the common femoral vein are clear. The visualized calf veins are patent. A popliteal cyst measures 5.1 x 0.9 x 1.7 cm. IMPRESSION: 1. There is no sonographic evidence of deep venous thrombosis identified in the right lower extremity. 2. Popliteal cyst. ACT 112: Negative or not required by law. Electronically signed by: Seb Pittman M.D. 09/22/2020 7:00 AM Dictated: 09/22/20 0700Transcribed: 09/22/20 0700 Code Status & VTE Plan Code Status Full code VTE Prophylaxis Plan VTE Prophylaxis will be ordered: Yes PG Care Time/CCT Total # of Minutes Spent Total Time Spent with Patient: Total time spent is greater than 50% in coordination of care (as documented) at patient's floor/unit and/or counseling patient: Coding Level of Care Code 47943 OBS Care - Level 3 Diagnoses Acute knee pain M25.561 Laterality: right Quadriceps muscle strain S76.111A Encounter type: initial encounter Laterality: right Popliteal cyst M71.21 Laterality: right Cho's cyst of knee M71.21 Laterality: right COPD (chronic obstructive pulmonary disease) J44.9 COPD type: unspecified COPD Suicidal ideations R45.851 BPH (benign prostatic hyperplasia) N40.0 Hypothyroidism E03.9 Hypertension I10 Hypertension type: unspecified Diabetes E11.9 Bladder cancer C67.9 (1) Quadriceps muscle strain Encounter type: initial encounter Laterality: right Qualified Code(s): S76.111A - Strain of right quadriceps muscle, fascia and tendon, initial encounter (2) Popliteal cyst Laterality: right Qualified Code(s): M71.21 - Synovial cyst of popliteal space [Cho], right knee (3) Acute knee pain Laterality: right Qualified Code(s): M25.561 - Pain in right knee (4) COPD (chronic obstructive pulmonary disease) COPD type: unspecified COPD Qualified Code(s): J44.9 - Chronic obstructive pulmonary disease, unspecified (5) Cho's cyst of knee Laterality: right Qualified Code(s): M71.21 - Synovial cyst of popliteal space [Cho], right knee (6) Hypertension Hypertension type: unspecified Qualified Code(s): I10 - Essential (primary) hypertension
[2020-09-25] MEDS ORDERED: GLUCAGON FOR INJ 1 MG VIAL SQ PRN (02:29)
[2020-09-25] MEDS ORDERED: GLUCOSE 10 TABS/TUBE PO PRN (02:29)
[2020-09-25] MEDS ORDERED: ONDANSETRON INJ 2 MG/ML 2 ML VIAL IV PRN (02:29)
[2020-09-25] MEDS ORDERED: ALBUTEROL 0.083% NEBU SOLN 3 ML VIAL INH PRN (02:29)
[2020-09-25] MEDS ORDERED: GLUCOSE 40% GEL 15 GM TUBE PO PRN (02:29)
[2020-09-25] MEDS ORDERED: CARBOHYDRATES FOR HYPOGLYCEMIA PO PRN (02:29)
[2020-09-25] MEDS ORDERED: ACETAMINOPHEN 325 MG TAB PO PRN ×2 (02:29)
[2020-09-25] MEDS ORDERED: BENZONATATE 100 MG CAPSULE PO PRN (02:29)
[2020-09-25] MEDS ORDERED: DEXTROSE 50% 50 ML SYRINGE IV PRN (02:29)
[2020-09-25] MEDS ORDERED: MoRPHine SULFATE 2 MG/ML CARP ONE (02:45)
[2020-09-25] MEDS: MoRPHine SULFATE 2 MG/ML CARP IV PRN ×3 (02:49→22:00)
[2020-09-25] MEDS ORDERED: ARTIFICIAL TEARS OP PRN (03:05)
[2020-09-25] MEDS: oxyCODONE HCL IR 5 MG TAB (IMMEDIATE RELEASE) PO PRN ×2 (05:10→16:44)
[2020-09-25] MEDS: LEVOTHYROXINE SODIUM 75 MCG TABLET PO SCH (05:54)
[2020-09-25] MEDS ORDERED: ARFORMOTEROL TART 15MCG/2ML VIAL INH SCH (07:00)
[2020-09-25] MEDS: FORMOTEROL 20 MCG/2 ML VIAL INH SCH ×2 (07:08→19:30)
[2020-09-25] MEDS: BUDESONIDE 0.5 MG/2 ML VIAL (PULMICORT) INH SCH ×2 (07:09→19:30)
--- NOTE | 2020-09-25 07:10 | XRay Report ---
XR knee RT 1 or 2V routine CLINICAL HISTORY: Right knee pain COMPARISON: 09/19/2020 DISCUSSION: There is chondrocalcinosis. There is a trace effusion. There are mild degenerative change s. There are tiny dorsal patellar spurs. There are vascular calcifications present. No acute fracture s are visualized IMPRESSION: 1. No acute fractures 2. Chondrocalcinosis and degenerative change ACT 112: Negative or not required by law. Electronically signed by: Reno Rinaldi M.D. 09/25/2020 7:09 AM
--- NOTE | 2020-09-25 07:13 | Ultrasound Report ---
US venous doppler LE RT CLINICAL HISTORY: Right leg pain COMPARISON STUDY: September 21, 2020 FINDINGS: Real-time and color flow Doppler imaging were performed. Flow was seen within the femoral, popliteal and calf veins with no intraluminal thrombus demonstrated. The saphenous vein is patent. Th ere is a right popliteal cyst measuring 47 x 11 x 7 mm. IMPRESSION: 1. No evidence of right lower extremity DVT 2. Redemonstration of a popliteal cyst ACT 112: Negative or not required by law. Electronically signed by: Reno Rinaldi M.D. 09/25/2020 7:12 AM
--- NOTE | 2020-09-25 07:21 | Orthopedic Consultation ---
Date of Service September 25, 2020 Assessment & Plan (1) Lumbar radicular pain: His knee exam is fairly benign. The x-rays are negative. I do not see enough pathology between the x-rays and the exam to explain this level of pain intensity. He does say that the pain shoots down his leg. He says his whole leg is really what is bothering him. I think this may be coming from his back. He denies any history of back pain or back surgeries. Lumbar radiculopathy can be quite severe. I understand that there might be a psychiatric component as well especially with the recent loss of his . I do want to get some x-rays of his lumbar spine. We will recommend some steroids and pain control. We will continue to follow. History of Present Illness Reason for Consultation: Right leg pain. Requesting Physician: . Attending Physician: Kory Teague MD Terrance is an 89-year-old male who is been dealing with a weeklong history of severe right leg pain. He states that his leg pain is bad enough that he may want to commit suicide. He denies any history of back pain. He went to the emergency room last week and an ultrasound showed a small cyst behind the knee. He was then sent home. Unfortunately the pain worsened. He returned to the emergency room. Radiographs are essentially negative. There is no signs of DVT. He was admitted to the hospital for evaluation of his right knee pain as well as a psychiatric evaluation for his suicidal thoughts. It is worth noting that his recently and her is tomorrow. Allergies Allergy/AdvReac Type Severity Reaction Status Date / Time cephalexin Allergy Intermediate RASH Verified 09/21/20 21:19 doxycycline Allergy Intermediate RASH Verified 09/21/20 21:19 propranolol Allergy Mild BRADYCARDIA Verified 09/21/20 21:19 hydrochlorothiazide Allergy Unknown Unknown Verified 09/21/20 21:19 sulfamethoxazole AdvReac Intermediate hyperkalemi Verified 09/21/20 21:19 [From Bactrim] a trimethoprim [From Bactrim] AdvReac Intermediate hyperkalemi Verified 09/21/20 21:19 a Home Medications Medication Instructions Recorded Confirmed Type clopidogrel 75 mg PO 3XWK 06/28/18 09/24/20 History dutasteride [Avodart] 0.5 mg PO QAM 06/28/18 09/24/20 History amlodipine [Norvasc] 10 mg PO QAM 08/13/18 09/24/20 History budesonide 2 ml INHALATION BID 08/13/18 09/24/20 History escitalopram oxalate 5 mg PO QAM 09/02/19 09/24/20 History hydralazine 100 mg PO TID 09/02/19 09/24/20 History OneTouch Ultra Blue Test Strip #100 ea 09/05/19 09/21/20 Rx blood-glucose meter [OneTouch #1 ea 09/05/19 09/21/20 Rx Ultra2 Meter] lancets [OneTouch Delica Plus #100 ea 09/05/19 09/21/20 Rx Lancet] betamethasone dipropionate 0.05 % 1 applic TOPICAL BID #45 gm 07/20/20 09/24/20 Rx topical cream Brovana 2 ml INHALATION BID 08/07/20 09/24/20 History Lactobacillus acidophilus 175 mg PO DAILY 08/07/20 09/24/20 History [Acidophilus] Lantus U-100 Insulin 25 unit SUBCUT BID 08/07/20 09/24/20 History PreserVision AREDS-2 1 tab PO BID 08/07/20 09/24/20 History Zioptan (PF) 1 drp OPB HS 08/07/20 09/24/20 History acetaminophen 650 mg PO QID PRN MDD 3g 08/07/20 09/24/20 History albuterol sulfate 2.5 mg INHALATION Q6 PRN 08/07/20 09/24/20 History docusate sodium [Stool Softener] 100 mg PO DAILY 08/07/20 09/24/20 History levothyroxine 75 mcg PO DAILY 08/07/20 09/24/20 History polyethylene glycol 3350 17 g PO DAILY 08/07/20 09/24/20 History pravastatin 20 mg PO HS 08/07/20 09/24/20 History primidone 375 mg PO BID 08/07/20 09/24/20 History sennosides [senna] 8.6 mg PO BID 08/07/20 09/24/20 History spironolactone 25 mg PO QAM #30 tab 08/13/20 09/24/20 Rx benzonatate 200 mg PO Q8 PRN 09/21/20 09/24/20 History lidocaine 1 patch TOP DAILY PRN #15 ea 09/21/20 09/24/20 Rx oxycodone [Roxicodone] 2.5 mg PO Q8H PRN #3 tab 09/21/20 09/24/20 Rx polyvinyl alcohol-povidon(PF) 1 drp OPB QID PRN 09/21/20 09/24/20 History [Refresh Classic (PF)] tamsulosin 0.4 mg PO HS 09/21/20 09/24/20 History torsemide 20 mg PO Q OTHER DAY 09/21/20 09/24/20 History Past Med/Surg History Medical History Bilateral lower extremity edema Bladder cancer REASON FOR PROCEDURE BPH (benign prostatic hyperplasia) Carbon monoxide exposure Chronic obstructive pulmonary disease STABLE CKD (chronic kidney disease) COPD exacerbation Dizziness History of tremor Hx of deep venous thrombosis PER RECORDS; PATIENT DENIES Hx of spinal stenosis Hyperlipidemia Hypertension Hyponatremia Hypothyroidism Infection due to urethral catheter Leg pain, left Obesity Seizure PER RECORDS; PATIENT DENIES Sinusitis Sleep apnea CPAP Stasis dermatitis Stroke 5+ YEARS AGO PER CHART REVIEW; NO RESIDUAL DEFICITS= ON PLAVIX Surgical History History of bladder surgery History of cataract surgery B/L History of prostate surgery History of surgical procedure on eye proper using laser right eye Hx of knee surgery Hx of toe surgery Family History Other Family history non-contributory No family history of adverse response to anesthesia Social History Smoking Status: Former smoker Cigarettes Per Day: QUIT 50+ YEARS AGO; Second Hand Exposure: No; Hx Alcohol Use: No Hx Substance Use: No Preferred Language: Welsh Communication Ability: Effective Visual Impairment: No Limitations Sample Mounter Required: No Beliefs That Will Affect Care: None marital status: Current Living Situation: Personal Care Facility Current Living Situation Comment: Stays at [facility] current occupational status: retired Feels Safe at Home: Yes Assistive Devices: Walker Review of Systems All systems reviewed & are unremarkable except as noted in HPI & below. Physical Exam WithOn physical examination of the right knee, there is no effusion. He is good motion from 0 to 130 degrees. He does not have much pain in his motion of his knee. He had minimal pain along the medial lateral joint lines. He had active motion of his right ankle. He had good strength. He did not have any radicular symptoms on my exam. It was difficult to get him off to get a good exam of his lumbar spine.. Constitutional WD/WN, vitals as above Eyes PERRL, conjunctivae normal, anicteric sclerae ENMT external ear and nose normal, oropharynx normal Neck trachea midline, no thyromegaly Respiratory normal respiratory effort Cardiovascular RRR, no murmur, no edema Gastrointestinal (Abdomen) normal bowel sounds, soft, nontender, no hepatosplenomegaly Psychiatric A+Ox3, euthymic affect Results & Data Results & Data Laboratory Results H & H 09/24/20 Range/Units 21:36 Hgb 12.7 L (14.0-18.0) g/dL Hct 37.6 L (42-52) % . Diagnostic Findings X-rays reviewed of the right knee show no evidence of arthritis. The right knee x-rays are essentially negative.. PG Care Time/CCT Total # of Minutes Spent Total Time Spent with Patient: Total time spent is greater than 50% in coordination of care (as documented) at patient's floor/unit and/or counseling patient: Coding Level of Care Code 50756 Inpt Consult Level 4 Diagnoses Lumbar radicular pain M54.16
[2020-09-25] MEDS: AVODART~ORDER AWAITING ACTION SCH ×2 (08:03→15:11)
--- NOTE | 2020-09-25 09:16 | Psychiatric Consultation ---
Date of Consultation September 25, 2020 Impression / Recommendations Impression Dr. Genesis Adams was directly involved in review and discussion of the patient's case and participated in medical decision making regarding treatment recommendations. RECOMMENDATIONS: 09/25/20 - Psychiatric consultation requested by our hospitalist service to evaluate patient for passive SI reported in the context of worsening knee/leg pain. Patient's did pass away recently; however, patient denies that this contributed to his passive SI. - Pt does admit that he is notice improvement in severity of pain with his current medication regimen. He denies current SI and does confirm that the passive thoughts to end his life were only in the context of severe pain. Pt was able to reach out to his daughter to verbalize these thoughts. - SI reported by the patient was passive, without specific plan or means. Staff at his [facility] reportedly did a safety check of his room and did not find any items suggesting any safety concern. Pt is now denying SI and does state that he feels he would be able to reach out if thoughts returned, identifying his daughter a support but also feeling he could tell hospital or [facility] staff. He is able to contract for safety here in the hospital setting, and appears to be at low risk of self-harm at this time. - Pt does endorse a more depressed mood in the last 1-2 weeks, but denies specific symptoms of major depressive disorder. It appears he is currently prescribed escitalopram 5mg daily. We discussed consideration to titrate this medication; however, patient wished to focus on his pain medication regimen at this time. Escitalopram could be titrated on an outpatient basis if depressive symptoms continue or worsen. - There is no indication for inpatient psychiatric treatment as the patient is now denying SI, had not specific plan and no act of furtherance. Recommend continuing to assess mood and the presence of SI to monitor for worsening symptoms. - We appreciate the opportunity to participate in the care of this patient. Please reach out to our service with any additional questions or updates. Risk Factors Assessment Do You Have Access To A Gun?: No Psych History Identifying Data 89-year-old male admitted medically on 09/25/2020 after presenting to the ED from his residence at [facility] for worsening right leg/knee pain and reported suicidal ideation in the context of this pain. Psychiatric consultation was requested by our hospitalist service to evaluate the patient for passive suicidal ideation. Chief Complaint "It started as an ordinary knee ache, but then it hurt continuously." History of Present Illness Terrance Scales is an 89-year-old male admitted medically on 09/25/2020 after presenting to the ED with worsening right knee/leg pain and reports that he had verbalized passive SI to his daughter in the context of severe pain. Orthopedic consultation was requested, and there is now a question of lumbar radiculopathy - recommending additional imaging. Psychiatric consultation was also requested to evaluate the patient for suicidal ideation. Pt is cooperative with interview, though generally responses are brief and concrete. Pt states his admission is related to "It started as an ordinary knee ache, but then it hurt continuously." He states he was given OTC pain medications without relief which led to increased frustration. Pt shares with this provider that he felt "disgusted with the pain." Pt does admit to thoughts to harm himself prior to his admission, stating "I was in such pain I was thinking I'd do just about anything to make it stop." Pt denies any contributing factors to these thoughts aside from his pain. Pt admits that he did not have a specific plan or means to harm himself. Presently, the patient is denying SI and states "I just got my pain medication, and it's just starting to kick in." Pt admits he was able to call his daughter to report his passive suicidal thoughts, and feels he could reach out to hospital/H staff or his daughter if these thoughts should recur. Pt does talk a bit about the of his last week. He denies that her passing contributed to his suicidal thoughts. Pt does frankly stated "I'm pretty well over it. We could see it coming for a few months now." Pt does admit that his mood has been lower than usual for "a couple weeks" but he denies specific symptoms consistent with major depressive disorder. Pt is declining to titrate his escitalopram as "I want to focus on these new (pain) medications first, then we'll see about that." He is denying interest in any outpatient psychiatric services such as therapy or psychiatry referral. He denies other needs or concerns from our service at this time. 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 Previous Psych Admissions: None Do You Have Access To A Gun?: No History of Previous Suicide Attempt: No Allergies Allergy/AdvReac Type Severity Reaction Status Date / Time cephalexin Allergy Intermediate RASH Verified 09/21/20 21:19 doxycycline Allergy Intermediate RASH Verified 09/21/20 21:19 propranolol Allergy Mild BRADYCARDIA Verified 09/21/20 21:19 hydrochlorothiazide Allergy Unknown Unknown Verified 09/21/20 21:19 sulfamethoxazole AdvReac Intermediate hyperkalemi Verified 09/21/20 21:19 [From Bactrim] a trimethoprim [From Bactrim] AdvReac Intermediate hyperkalemi Verified 09/21/20 21:19 a Home Medications Medication Instructions Recorded Confirmed Type clopidogrel 75 mg PO 3XWK 06/28/18 09/24/20 History dutasteride [Avodart] 0.5 mg PO QAM 06/28/18 09/24/20 History amlodipine [Norvasc] 10 mg PO QAM 08/13/18 09/24/20 History budesonide 2 ml INHALATION BID 08/13/18 09/24/20 History escitalopram oxalate 5 mg PO QAM 09/02/19 09/24/20 History hydralazine 100 mg PO TID 09/02/19 09/24/20 History OneTouch Ultra Blue Test Strip #100 ea 09/05/19 09/21/20 Rx blood-glucose meter [OneTouch #1 ea 09/05/19 09/21/20 Rx Ultra2 Meter] lancets [OneTouch Delica Plus #100 ea 09/05/19 09/21/20 Rx Lancet] betamethasone dipropionate 0.05 % 1 applic TOPICAL BID #45 gm 07/20/20 09/24/20 Rx topical cream Brovana 2 ml INHALATION BID 08/07/20 09/24/20 History Lactobacillus acidophilus 175 mg PO DAILY 08/07/20 09/24/20 History [Acidophilus] Lantus U-100 Insulin 25 unit SUBCUT BID 08/07/20 09/24/20 History PreserVision AREDS-2 1 tab PO BID 08/07/20 09/24/20 History Zioptan (PF) 1 drp OPB HS 08/07/20 09/24/20 History acetaminophen 650 mg PO QID PRN MDD 3g 08/07/20 09/24/20 History albuterol sulfate 2.5 mg INHALATION Q6 PRN 08/07/20 09/24/20 History docusate sodium [Stool Softener] 100 mg PO DAILY 08/07/20 09/24/20 History levothyroxine 75 mcg PO DAILY 08/07/20 09/24/20 History polyethylene glycol 3350 17 g PO DAILY 08/07/20 09/24/20 History pravastatin 20 mg PO HS 08/07/20 09/24/20 History primidone 375 mg PO BID 08/07/20 09/24/20 History sennosides [senna] 8.6 mg PO BID 08/07/20 09/24/20 History spironolactone 25 mg PO QAM #30 tab 08/13/20 09/24/20 Rx benzonatate 200 mg PO Q8 PRN 09/21/20 09/24/20 History lidocaine 1 patch TOP DAILY PRN #15 ea 09/21/20 09/24/20 Rx oxycodone [Roxicodone] 2.5 mg PO Q8H PRN #3 tab 09/21/20 09/24/20 Rx polyvinyl alcohol-povidon(PF) 1 drp OPB QID PRN 09/21/20 09/24/20 History [Refresh Classic (PF)] tamsulosin 0.4 mg PO HS 09/21/20 09/24/20 History torsemide 20 mg PO Q OTHER DAY 09/21/20 09/24/20 History Family History Denies known family history of mental health conditions. Substance Abuse History Former smoker; quit 50+ years ago. Denies significant alcohol or tobacco use. Denies use of illicit substances. Personal History Living Arrangements: Personal Care Facility ([facility]) Employment Status: Retired Marital Status: (recently, last week) Patient History Medical History Bilateral lower extremity edema Bladder cancer REASON FOR PROCEDURE BPH (benign prostatic hyperplasia) Carbon monoxide exposure Chronic obstructive pulmonary disease STABLE CKD (chronic kidney disease) COPD exacerbation Dizziness History of tremor Hx of deep venous thrombosis PER RECORDS; PATIENT DENIES Hx of spinal stenosis Hyperlipidemia Hypertension Hyponatremia Hypothyroidism Infection due to urethral catheter Leg pain, left Obesity Seizure PER RECORDS; PATIENT DENIES Sinusitis Sleep apnea CPAP Stasis dermatitis Stroke 5+ YEARS AGO PER CHART REVIEW; NO RESIDUAL DEFICITS= ON PLAVIX Surgical History History of bladder surgery History of cataract surgery B/L History of prostate surgery History of surgical procedure on eye proper using laser right eye Hx of knee surgery Hx of toe surgery Family History Other Family history non-contributory No family history of adverse response to anesthesia Social History Smoking Status: Former smoker Cigarettes Per Day: QUIT 50+ YEARS AGO; Second Hand Exposure: No; Hx Alcohol Use: No Hx Substance Use: No Preferred Language: Slovenian Communication Ability: Effective Visual Impairment: No 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 Pt does not appear to be in any distress. He is appropriately dressed for clinical setting, wearing a hospital gown. Grooming does seem somewhat limited, but he is not malodorous or disheveled. Eye Contact: + fair eye contact Motor Behavior: no abnormal motor movements (observed while propped up in bed) Speech: normal rate/rhythm/volume of speech (only brief responses to questions) Affect: + depressed affect, + flat affect and mood congruent with affect Mood: + depressed mood (worse in the past "couple weeks"); no anxious mood Thought Process: goal directed thought process and + concrete thought process Thought Content: reality based without delusions; no hopelessness Suicidal Thoughts: denies suicidal thoughts, denies suicidal plan and denies suicidal intent Homicidal Thoughts: denies homicidal thoughts Hallucinations: no auditory hallucinations and no visual hallucinations Cognition: attention grossly intact and language grossly intact Estimated Intelligence: consistent with education level Insight: + fair insight Judgement: + fair judgement Vital Signs (Past 24 Hours): Last Vital Signs Temp 36.7 C 09/25/20 07:28 Pulse 67 09/25/20 07:28 Resp 18 09/25/20 07:28 BP 161/71 H 09/25/20 07:28 Pulse Ox 96 09/25/20 07:28 Review of Systems Constitutional: denied Cardiovascular: denied Respiratory: denied Gastrointestinal: denied Neurological/Musculoskeletal: reports some relief from right leg/knee pain Psychiatric: denies symptoms other than stated above Total of at least 10 systems reviewed, pertinent positives as above and in HPI. Results & Data (PSY) Medications Administered Budesonide (Budesonide 0.5 Mg/2 Ml Vial (Pulmicort)) 0.5 mg INH BIDR REPLACED BY [facility] Stop: 10/25/20 06:59 Last Admin: 09/25/20 07:09 Dose: 0.5 mg Documented by: [id number] Formoterol Fumarate (Formoterol 20 Mcg/2 Ml Vial) 20 mcg INH BIDR REPLACED BY [facility] Stop: 10/25/20 06:59 Last Admin: 09/25/20 07:08 Dose: 20 mcg Documented by: [id number] Levothyroxine Sodium (Levothyroxine Sodium 75 Mcg Tablet) 75 mcg PO DAILYBB REPLACED BY [facility] Stop: 10/25/20 06:29 Last Admin: 09/25/20 05:54 Dose: 75 mcg Documented by: [id number] Miscellaneous (Avodart~Order Awaiting Action) 1 ea N/A [facility] Stop: 10/25/20 07:59 Last Admin: 09/25/20 08:03 Dose: Not Given Documented by: [id number] Miscellaneous (Zioptan~Order Awaiting Action) 1 ea N/A QS REPLACED BY [facility] Stop: 10/25/20 07:59 Last Admin: 09/25/20 08:03 Dose: Not Given Documented by: [id number] Morphine Sulfate (Morphine Sulfate 2 Mg/Ml Carp) 2 mg IV Q4H PRN PRN Reason: Severe Pain Stop: 10/09/20 02:28 Last Admin: 09/25/20 08:01 Dose: 2 mg Documented by: [id number] Oxycodone HCl (Oxycodone Hcl Ir 5 Mg Tab (Immediate Release)) 2.5 - 5 mg PO Q8H PRN PRN Reason: Moderate Pain Stop: 10/09/20 02:49 Last Admin: 09/25/20 05:10 Dose: 5 mg Documented by: [id number] Coding Level of Care Code 03622 [facility] Intl Hosp Care Lvl 2
[2020-09-25] MEDS: ESCITALOPRAM OXALATE 10 MG TAB PO SCH (09:26)
[2020-09-25] MEDS: POLYETHYLENE (MIRALAX) 17 GM PACK PO SCH (09:26)
[2020-09-25] MEDS: hydrALAZINE TAB 50 MG TAB PO SCH ×3 (09:26→20:30)
[2020-09-25] MEDS: PRIMIDONE 250 MG TAB PO SCH ×2 (09:27→20:30)
[2020-09-25] MEDS: SPIRONOLACTONE 25 MG TAB PO SCH (09:27)
[2020-09-25] MEDS: CEROVITE ADV FORMULA TAB PO SCH ×2 (09:27→20:30)
[2020-09-25] MEDS: SENNA 8.6 MG TAB PO SCH ×2 (09:27→20:30)
[2020-09-25] MEDS: amLODIPine BESYLATE 5 MG TAB PO SCH (09:28)
[2020-09-25] MEDS: ADVANCED PROBIOTIC 1250 MG CAPSULE PO SCH (09:28)
[2020-09-25] MEDS: BETAMETHASONE DIP AUG (DIPROLENE) 0.05% CR 15 GM TUBE EXT SCH ×2 (09:28→20:31)
[2020-09-25] MEDS: LIDOCAINE 5% 1 PATCH TD SCH (09:29)
[2020-09-25] MEDS: DOCUSATE SODIUM 100 MG CAP PO SCH (09:29)
[2020-09-25] MEDS: INSULIN GLARGINE SOLOSTAR 100 UNITS/ML 3 ML PEN SQ SCH ×2 (09:29→21:29)
[2020-09-25 09:42] LABS: Estimated Average Glucose 140 mg/dl; Hemoglobin A1C 6.5 % (4.5-5.6)
--- NOTE | 2020-09-25 10:04 | XRay Report ---
XR lumbar spine 2-3V HISTORY: 89 years-old Male lumbar radiculopathy chronic low back pain COMPARISON: CTA chest 08/07/2020, CT abdomen and pelvis 08/13/2018. TECHNIQUE: 3 views of the lumbar spine FINDINGS: Demineralized appearance of the bones. Mild levoscoliosis may be positional. Mild to moderate multile charline spondylitic spurring with moderate facet arthrosis. No acute fracture or subluxation. Calcified p laque of the abdominal aorta. IMPRESSION: No acute fracture or subluxation. ACT 112: Negative or not required by law. The above report was generated using voice recognition software. It may contain grammatical, syntax o r spelling errors. Electronically signed by: Brant Miller M.D. 09/25/2020 10:03 AM
[2020-09-25] MEDS: INSULIN ASPART 100 UNITS/ML 3 ML PEN SC SCH ×4 (10:45→21:11)
[2020-09-25] MEDS ORDERED: GABAPENTIN 100 MG CAP PO SCH (21:00)
[2020-09-25] MEDS ORDERED: TAMSULOSIN HCL 0.4 MG CAP PO SCH (21:00)
[2020-09-25] MEDS ORDERED: PRAVASTATIN SOD 20 MG TAB PO SCH (21:00)
[2020-09-26] MEDS: AVODART~ORDER AWAITING ACTION SCH ×2 (00:27→08:10)
[2020-09-26] MEDS: LEVOTHYROXINE SODIUM 75 MCG TABLET PO SCH (06:03)
--- NOTE | 2020-09-26 06:55 | Orthopedic Progress Note ---
Date of Service September 26, 2020 Assessment & Plan (1) Acute leg pain: It is difficult to tell whether this is a radicular pain coming from his back or whether it is more focused around his knee. The knee x-rays look fine and his knee exam is fairly benign. He still focuses a lot of his pain around his knee joint. He is unable to ambulate on his right leg at this time. Fortunately the opioids are helping some with his pain. He had a psychiatric consult yesterday. I think we should continue the oral opioids to help with his pain. We will also try an intra-articular knee cortisone injection today. I order the steroids up to his bedside. We will see how much the intra-articular knee injection helps with his overall symptoms. Maddy Carlos was seen and examined at bedside this morning. Overall he is doing a little bit better. The narcotic pain medications seem to be helping. He says the pain is a little bit more focused in his knee but he still has shooting pains down his right leg. He states that he is unable to bear weight on his right leg at this time. He seemed to be sleeping comfortably when I entered the room. He has no new complaints.. Review of Systems All systems reviewed & are unremarkable except as noted in HPI & below. Physical Exam On physical examination of the right knee, there is no effusion. He is good motion. He has mild tenderness palpation along the medial or lateral joint lines. It is difficult to get a good low back exam given his disabilities.. Results & Data Results & Data Laboratory Results . Diagnostic Findings X-rays reviewed personally of the lumbar spine do show mild multilevel degenerative disc disease and mild stenosis but nothing significant. He seems to have a well-maintained lumbar lordosis.. PG Care Time/CCT Total # of Minutes Spent Total Time Spent with Patient: Total time spent is greater than 50% in coordination of care (as documented) at patient's floor/unit and/or counseling patient: Coding Level of Care Code 29942 Subseq Hosp Care Lvl 1 Diagnoses Acute leg pain M79.604 Laterality: right (1) Acute leg pain Laterality: right Qualified Code(s): M79.604 - Pain in right leg
[2020-09-26] MEDS ORDERED: TRIAMCINOLONE ACET 40 MG/ML VIAL IA ONE (07:15)
[2020-09-26] MEDS ORDERED: BUPIVACAINE/EPINEPHRINE 0.25% 1:200,000 30 ML VIAL INFIL ONE (07:15)
[2020-09-26] MEDS: PRIMIDONE 250 MG TAB PO SCH (08:07)
[2020-09-26] MEDS: hydrALAZINE TAB 50 MG TAB PO SCH (08:08)
[2020-09-26] MEDS: LIDOCAINE 5% 1 PATCH TD SCH (08:08)
[2020-09-26] MEDS: DOCUSATE SODIUM 100 MG CAP PO SCH (08:08)
[2020-09-26] MEDS: amLODIPine BESYLATE 5 MG TAB PO SCH (08:09)
[2020-09-26] MEDS: ADVANCED PROBIOTIC 1250 MG CAPSULE PO SCH (08:09)
[2020-09-26] MEDS: SPIRONOLACTONE 25 MG TAB PO SCH (08:09)
[2020-09-26] MEDS: ESCITALOPRAM OXALATE 10 MG TAB PO SCH (08:10)
[2020-09-26] MEDS: BETAMETHASONE DIP AUG (DIPROLENE) 0.05% CR 15 GM TUBE EXT SCH (08:10)
[2020-09-26] MEDS: POLYETHYLENE (MIRALAX) 17 GM PACK PO SCH (08:11)
[2020-09-26] MEDS: CEROVITE ADV FORMULA TAB PO SCH (08:11)
[2020-09-26] MEDS: SENNA 8.6 MG TAB PO SCH (08:12)
[2020-09-26] MEDS: BUDESONIDE 0.5 MG/2 ML VIAL (PULMICORT) INH SCH (08:15)
[2020-09-26] MEDS: FORMOTEROL 20 MCG/2 ML VIAL INH SCH (08:15)
[2020-09-26] MEDS: MoRPHine SULFATE 2 MG/ML CARP IV PRN (08:46)
[2020-09-26] MEDS: INSULIN ASPART 100 UNITS/ML 3 ML PEN SC SCH (08:49)
[2020-09-26] MEDS: INSULIN GLARGINE SOLOSTAR 100 UNITS/ML 3 ML PEN SQ SCH (08:49)
[2020-09-26] MEDS ORDERED: CLOPIDOGREL BISULFATE 75 MG TAB PO SCH (09:00)
[2020-09-26] MEDS: oxyCODONE HCL IR 5 MG TAB (IMMEDIATE RELEASE) PO PRN (10:03)
[2020-09-26 16:26] LABS: Amobarbital, Urine Conf NEGATIVE ng/mL (<100); Butalbital, Urine NEGATIVE ng/mL (<100); Pentobarbital, Urine Conf NEGATIVE ng/mL (<100); Phenobarbital, Urine NEGATIVE ng/mL (<100); Secobarbital, Urine Conf NEGATIVE ng/mL (<100)
--- NOTE | 2020-10-03 21:42 | Discharge Summary ---
Date of Service September 26, 2020 Admission HPI Per Admitting Provider The patient is an 89-year-old male with a past medical history including COPD, Cho's cyst of right knee, suicidal ideations, acute respiratory failure with hypoxia, COPD acute exacerbation, acute renal sufficiency, BPH, urethral stricture, bladder cancer, glaucoma, hypothyroidism, diabetes mellitus, hypertension, generalized weakness, tobacco use disorder, stroke 8 years ago, carbon monoxide exposure, hyponatremia and stasis dermatitis. Patient was in the emergency department on 09/21/2020, and was diagnosed with a Cho's cyst of the right knee at that time. He has an outpatient appointment scheduled with orthopedic surgery, but was brought into the ED due to the severity of his pain, and the concerns regarding suicidal ideation. His has recently , and her is on 09/26. Principal Diagnosis acute knee pain Discharge Exam The patient is awake, alert and oriented 3, well developed and well nourished, normocephalic and atraumatic, lying in bed and in no acute distress. HEENT--PERRL, EOMI, mucous membranes and oropharynx normal. Neck--supple. No JVD. No bruits. Thyroid normal, trachea midline, no adenopathy. Heart--normal S1 and S2. No murmurs, rubs or gallops. Lungs--clear bilaterally, no respiratory distress, no accessory muscle use. Abdomen--normal bowel sounds and soft. Nontender. Nondistended, no hernias or masses, no organomegaly. Extremities--no cyanosis or clubbing. No edema. Dermatologic--normal skin turgor, normal color, no abnormal lymph nodes, no rash. Neurologic--cranial nerves II through XII grossly intact. Rheumatologic--limited ROM right knee due to pain Psychiatric--normal affect. Discharge Data Allergies Allergy/AdvReac Type Severity Reaction Status Date / Time cephalexin Allergy Intermediate RASH Verified 10/03/20 16:59 doxycycline Allergy Intermediate RASH Verified 10/03/20 16:59 propranolol Allergy Mild BRADYCARDIA Verified 10/03/20 16:59 hydrochlorothiazide Allergy Unknown Unknown Verified 10/03/20 16:59 sulfamethoxazole AdvReac Intermediate hyperkalemi Verified 10/03/20 16:59 [From Bactrim] a trimethoprim [From Bactrim] AdvReac Intermediate hyperkalemi Verified 10/03/20 16:59 a Consultations 09/24/20 23:11 ED Decision to Admit Stat 09/25/20 02:29 Consult Case Management - Discharge Planning Routine Consult Orthopedic Surgery Routine 09/25/20 02:34 Consult Psychiatry Routine Ordered Studies 09/24/20 21:06 US venous doppler LE RT Urgent Hospital Course (1) Acute knee pain: Acute right knee pain/popliteal cyst/Cho's cyst of knee/quadriceps muscle strain- Patient reported severe pain, bad enough to want to commit suicide. Acetaminophen 650 mg p.o. every 6 hours as needed mild pain or fever Oxycodone 2.5 mg p.o. every 8 hours as needed moderate pain Morphine sulfate 2 mg IV every 4 hours as needed severe pain Consult orthopedic surgery: will have outpatient followup today so patient can go to his 's (2) Quadriceps muscle strain: See above (3) Popliteal cyst: See above (4) Cho's cyst of knee: See above (5) COPD (chronic obstructive pulmonary disease): Continue albuterol sulfate nebulizers every 6 hours as needed. Continue budesonide respules 0.5 mg inhaled twice daily (6) Suicidal ideations: Consult psychiatry (7) BPH (benign prostatic hyperplasia): Continue tamsulosin 0.4 mg at bedtime and dutasteride 0.5 mg in the morning (8) Hypothyroidism: Continue levothyroxine 75 mcg daily (9) Hypertension: Hypertension/history of CVA- Continue amlodipine, clopidogrel, hydralazine, spironolactone. Hold torsemide due to decreased oral intake (10) Diabetes: Reduce Lantus from 25 units subcu twice daily to 20 units subcu twice daily. Placed on Accu-Cheks before meals and at bedtime with NovoLog coverage per scale (11) Bladder cancer: Total Time Total Time Spent Total Time Spent (In Minutes): 32 Total Time Includes: Examination of the Patient, Discharge Planning and Medi cation Reconciliation Discharge Plan Discharge Items Patient Disposition: Home - Self-Care Reason For Visit: SEVERE RIGHT KNEE PAIN Discharge Diagnosis: severe right knee pain Activity: Resume your previous activity Non-emergency contact: Primary Care Provider Call non-emergency contact if: you have any medication questions Follow-up/Referrals: RONNIE POLLOCK HUSEYIN [Primary Care Provider] - Diet: Carb Consistent or DM2 and Heart Healthy Addtl Attending Provider Instructions: You have been hospitalized for an acute medical problem. During your stay at [facility], we have made an effort to correct the problem that brought you to the hospital while keeping you as comfortable as possible. Medications were used to bring your condition under control and your discharge instructions will include directions for any medications you should take after leaving the hospital. Please make sure you see your Primary Care Provider as part of your follow up plan. Will recommend followup with ortho for a knee injection. Patient wants to go to . Appointment will be at [facility]. Pending Studies at Discharge: No Stand-Alone Forms: My [facility], Smoking Cessation Medications and DC Order Prescriptions: New gabapentin 100 mg Capsule 100 mg PO QPM Qty: 30 RF: 0 Continued betamethasone dipropionate 0.05 % cream 1 applic TOPICAL BID Qty: 45 RF: 0 clopidogrel 75 mg Tablet 75 mg PO 3XWK RF: 0 dutasteride [Avodart] 0.5 mg Capsule 0.5 mg PO QAM RF: 0 budesonide 0.5 mg/2 mL Suspension For Nebulization 2 ml INHALATION BID RF: 0 hydralazine 100 mg tablet 100 mg PO TID RF: 0 escitalopram oxalate 5 mg tablet 5 mg PO QAM RF: 0 Lantus U-100 Insulin 100 unit/mL solution 25 unit SUBCUT BID RF: 0 Lactobacillus acidophilus [Acidophilus] Capsule 175 mg PO QAM RF: 0 levothyroxine 75 mcg Tablet 75 mcg PO QAM RF: 0 primidone 250 mg Tablet 375 mg PO BID RF: 0 pravastatin 20 mg Tablet 20 mg PO HS RF: 0 polyethylene glycol 3350 17 gram/dose Powder 17 g PO QAM RF: 0 PreserVision AREDS-2 [id number]-mg Capsule 1 tab PO BID RF: 0 sennosides [senna] 8.6 mg Tablet 8.6 mg PO BID RF: 0 docusate sodium [Stool Softener] 100 mg Capsule 100 mg PO DAILY RF: 0 acetaminophen 325 mg Tablet 650 mg PO Q4H MDD 3 GMS APAP/24 HOURS PRN (Reason: Pain) RF: 0 Zioptan (PF) 0.0015 % Dropperette 1 drp OPB HS RF: 0 albuterol sulfate 2.5 mg /3 mL (0.083 %) Solution For Nebulization 2.5 mg INHALATION Q6H PRN (Reason: Shortness Of Breath Or Wheezing) RF: 0 spironolactone 25 mg Tablet 25 mg PO QAM Qty: 30 RF: 0 benzonatate 200 mg Capsule 200 mg PO Q8H PRN (Reason: Cough) RF: 0 Refresh Classic (PF) 1.4-0.6 % Dropperette 1 drp OPB QID PRN (Reason: Dry Eyes) RF: 0 tamsulosin 0.4 mg capsule 0.4 mg PO HS RF: 0 No Action amlodipine 10 mg Tablet 10 mg PO QAM RF: 0 Brovana 15 mcg/2 mL Solution For Nebulization 2 ml INHALATION Q12H RF: 0 oxycodone [Roxicodone] 5 mg tablet 2.5 mg PO Q6H PRN (Reason: Pain) RF: 0 lidocaine 5 % adhesive patch,medicated 1 patch topical DAILY PRN (Reason: Pain) RF: 0 Discharge Orders: Discharge Order (Routine); Ordered 09/26/20 Ordered By: Darrian Tolbert Admission Data Admit Date/Time: 09/25/20 01:11 Attending Provider: Darrian Tolbert Admit Provider: Kory Teague Primary Care Provider: RONNIE POLLOCK Other Providers: Kory Teague ; Avel Frazier ; Genesis Adams Other Interventions: Discharge Summary Assessment (RN) Last Done: 09/26/20 09:50 Coding Level of Care Code 78534 OBS Care - Discharge Diagnoses Acute knee pain M25.561 Laterality: right Quadriceps muscle strain S76.111A Encounter type: initial encounter Laterality: right Popliteal cyst M71.21 Laterality: right Cho's cyst of knee M71.21 Laterality: right COPD (chronic obstructive pulmonary disease) J44.9 COPD type: unspecified COPD Suicidal ideations R45.851 BPH (benign prostatic hyperplasia) N40.0 Hypothyroidism E03.9 Hypertension I10 Hypertension type: unspecified Diabetes E11.9 Bladder cancer C67.9
== END 2020-09-26 10:46 | disposition home or self-care (01) ==
LOC: ED 20:34 → 3W 20:34 → SUATTDRO 09-25 01:11 → 3W 09-25 02:09